=== PATIENT | male | born 1950 | race Caucasian/White ===

== ENCOUNTER 2017-09-13 09:57 | Inpatient (IN) | payer OTHER ==
[2017-09-13] VITALS (23 sets, daily range): BP systolic 84–113; BP diastolic 50–79
[~2017-09-13] VITALS: Ht 175.3 cm; Wt 78.2 kg
[2017-09-13] MEDS ORDERED: RT-ALBUTEROL/IPRATROPIUM 3 ML (DUONEB) VIAL ONE ×2 (10:05→11:38)
[2017-09-13 10:19] LABS: BASOPHILS % (AUTO) 0 % (0-10); EOSINOPHILS % (AUTO) 0 % (0-10); LYMPHOCYTES # (AUTO) 1.3 X 10^3 (1.0-4.0); LYMPHOCYTES % (AUTO) 16 % (12-44); MEAN CORPUSCULAR HEMOGLOBIN 35 PG (25-34); MEAN CORPUSCULAR HGB CONC 34 G/DL (32-36); MEAN CORPUSCULAR VOLUME 104 FL (80-99); MEAN PLATELET VOLUME 10.4 FL (7.4-10.4); MONOCYTES # (AUTO) 0.9 X 10^3 (0.0-1.0); MONOCYTES % (AUTO) 11 % (0-12); NEUTROPHILS # (AUTO) 5.8 X 10^3 (1.8-7.8); NEUTROPHILS % (AUTO) 72 % (42-75); PLATELET COUNT 203 10^3/uL (130-400); RED BLOOD COUNT 3.87 10^6/uL (4.35-5.85); RED CELL DISTRIBUTION WIDTH 12.2 % (10.0-14.5); WHITE BLOOD COUNT 8.1 10^3/uL (4.3-11.0)
[2017-09-13] MEDS ORDERED: morphine INJ 10 MG/ML 1ML (SYR OR VIAL) IVP STA (10:19)
[2017-09-13 10:24] LABS: INR 1.3 (0.8-1.4); PROTHROMBIN TIME PATIENT 16.2 SEC (12.2-14.7)
[2017-09-13 10:28] LABS: ABG BASE EXCESS 6.1 MMOL/L (-2.5-2.5); ABG HCO3 32 MMOL/L (23-27); ABG OXYGEN SATURATION 85 % (94-100); ABG PCO2 58 MMHG (35-45); ABG PH 7.35 (7.37-7.43); ABG PO2 53 MMHG (79-93); ABG TCO2 33.3 MMOL/L (21.0-31.0)
[2017-09-13 10:29] LABS: ALLENS TEST YES-POS; PATIENT TEMP 97.8
[2017-09-13 10:35] LABS: ALANINE AMINOTRANSFERASE 30 U/L (0-55); ALBUMIN 3.2 GM/DL (3.2-4.5); ANION GAP 10 MMOL/L (5-14); ASPARTATE AMINO TRANSFERASE 46 U/L (5-34); BILIRUBIN,TOTAL 2.4 MG/DL (0.1-1.0); BLOOD UREA NITROGEN 23 MG/DL (7-18); BUN/CREATININE RATIO 35; CALCIUM 8.8 MG/DL (8.5-10.1); CARBON DIOXIDE 31 MMOL/L (21-32); CHLORIDE 87 MMOL/L (98-107); CREATININE SERUM 0.65 MG/DL (0.60-1.30); GFR ESTIMATED > 60; GLUCOSE 98 MG/DL (70-105); POTASSIUM 5.1 MMOL/L (3.6-5.0); SODIUM 128 MMOL/L (135-145); TOTAL PROTEIN 7.3 GM/DL (6.4-8.2)
--- NOTE | 2017-09-13 10:36 | ED General ---
General Chief Complaint: Respiratory Problems Stated Complaint: SOA Nursing Triage Note: PT TO [facility] 9 BY [facility] WITH CC OF SOB AT REST WITH BI LAT LOWER EXT EDEMA AND SWELLING IN RT HAND. 90% ON 2 LPM ON EMS ARRIVAL, 98% ON ARRIVAL TO ER WITH 8 LPM BREATHING TX. Nursing Sepsis Screen: Possible Sepsis Risk Source of Information: Patient Exam Limitations: No Limitations History of Present Illness Time Seen by Provider: 10:08 Initial Comments Here by EMS with report of increasing shortness of breath over the last few days. Also has moderate increased swelling to both legs and the right arm. States he has no medical history that is on medicines for edema and breathing problems. He sees Ziyad Romo out at the clinic. He was hypoxic on EMS arrival and this did improve with breathing treatments. Very dyspneic on arrival and having difficult time answering questions. Denies fever or vomiting. Does admit to the swelling. Denies chest pain or diarrhea. Timing/Duration: 2-3 Days, Getting Worse Severity: Moderate, Severe Associated Systoms: No Chest Pain, Cough, No Diaphoresis, No Nausea/Vomiting, Shortness of Air, Weakness Allergies and Home Medications Allergies Coded Allergies: No Known Drug Allergies (Unverified , 09/13/17) Home Medications Unable to Obtain Active Prescriptions or Reported Meds Constitutional: see HPI, No chills, No diaphoresis, No fever, weakness EENTM: no symptoms reported Respiratory: see HPI, cough, dyspnea on exertion, short of breath, wheezing Cardiovascular: No chest pain, edema, No palpitations Gastrointestinal: No abdominal pain, No nausea, No vomiting Genitourinary: no symptoms reported Musculoskeletal: no symptoms reported Skin: no symptoms reported All Other Systems Reviewed Negative Unless Noted: Yes Past Nmoeves-Afbovk-Xopbll Hx Patient Social History Alcohol Use: Regular Use Number of Drinks Today: 1 Alcohol Beverage of Choice: Beer Recreational Drug Use: No Smoking Status: Former Smoker Former Smoker, Quit: Aug 23, 2017 Recent Foreign Travel: No Contact w/Someone Who Travel: No Recent Infectious Disease Expo: No Recent Hopitalizations: No Seasonal Allergies Seasonal Allergies: No Surgeries History of Surgeries: Yes Surgeries: Orthopedic Respiratory Respiratory Disorders: COPD Cardiovascular Cardiac Disorders: Hypertension Neurological History of Neurological Disord: No Genitourinary History of Genitourinary Disor: No Gastrointestinal History of Gastrointestinal Di: No Musculoskeletal History of Musculoskeletal Dis: No Endocrine History of Endocrine Disorders: No HEENT History of HEENT Disorders: No Cancer History of Cancer: No Psychosocial History of Psychiatric Problem: No Integumentary History of Skin or Integumenta: No Blood Transfusions History of Blood Disorders: No Reviewed Nursing Assessment Reviewed/Agree w Nursing PMH: Yes Family Medical History Significant Family History: No Pertinent Family Hx Physical Exam-Suspected Sepsis Physical Exam Vital Signs Vital Sign - Last 12Hours 09/13/17 09/13/17 09:57 11:44 Pulse Ox 98 O2 Flow Rate 8.00 FiO2 35 Capillary Refill : Less Than 3 Seconds Blood Pressure Mean: 114 General Appearance: Cachetic, Moderate Distress (respiratory), Thin HEENT: PERRL/EOMI, Pharynx Normal Neck: Non Tender, Supple Respiratory: Crackles, Decreased Breath Sounds, Wheezing Cardiovascular: No Murmur, Irregularly Irregular, Tachycardia Gastrointestinal: Non Tender, Soft Back: Normal Inspection, No CVA Tenderness, No Vertebral Tenderness Extremity: Normal Range of Motion, Non Tender Neurologic/Psychiatric: Alert, Oriented x3 Skin: normal color, warm/dry Focused Exam Evaluation Lactate Level Laboratory Tests 09/13/17 10:11: Lactic Acid Level 2.72*H 09/13/17 11:56: Lactic Acid Level 1.96 Lactic Acid Level Laboratory Tests Test 09/13/17 10:11 09/13/17 11:56 Lactic Acid Level 2.72 MMOL/L (0.50-2.00) *H 1.96 MMOL/L (0.50-2.00) Date of ETT Placement: Sep 13, 2017 Time of ETT Placement: 12:20 Intubation Method: orotracheal Tube Size: 7.5 Medications: Etomidate, Fentanyl, Succinylcholine, Versed Positive End Tide CO2: Yes Breath Sounds after Intubation: bilateral-equal Intubation Complications: no complications Post Intubation Xray: Yes Progress/Results/Core Measures Suspected Sepsis Recent Fever Within 48 Hours: No Infection Criteria Present: Suspected New Infection New/Unexplained Altered Menta: No Sepsis Screen: Possible Sepsis Risk Sepsis Diagnosis: SIRS Temperature:97.8 Pulse: 146 Respiratory Rate: 22 Laboratory Tests 09/13/17 10:05: White Blood Count 8.1 Blood Pressure 124 /109 Mean: 114 Laboratory Tests 09/13/17 10:11: Lactic Acid Level 2.72*H 09/13/17 11:56: Lactic Acid Level 1.96 Laboratory Tests 09/13/17 10:05: Creatinine 0.65, INR Comment 1.3, Platelet Count 203, Total Bilirubin 2.4H Results/Orders Lab Results Laboratory Tests Test 09/13/17 10:05 09/13/17 10:11 09/13/17 10:18 09/13/17 11:56 Range/Units White Blood Count 8.1 4.3-11.0 10^3/uL Red Blood Count 3.87 L 4.35-5.85 10^6/uL Hemoglobin 13.7 13.3-17.7 G/DL Hematocrit 40 40-54 % Mean Corpuscular Volume 104 H 80-99 FL Mean Corpuscular Hemoglobin 35 H 25-34 PG Mean Corpuscular Hemoglobin Concent 34 32-36 G/DL Red Cell Distribution Width 12.2 10.0-14.5 % Platelet Count 203 130-400 10^3/uL Mean Platelet Volume 10.4 7.4-10.4 FL Neutrophils (%) (Auto) 72 42-75 % Lymphocytes (%) (Auto) 16 12-44 % Monocytes (%) (Auto) 11 0-12 % Eosinophils (%) (Auto) 0 0-10 % Basophils (%) (Auto) 0 0-10 % Neutrophils # (Auto) 5.8 1.8-7.8 X 10^3 Lymphocytes # (Auto) 1.3 1.0-4.0 X 10^3 Monocytes # (Auto) 0.9 0.0-1.0 X 10^3 Eosinophils # (Auto) 0.0 0.0-0.3 10^3/uL Basophils # (Auto) 0.0 0.0-0.1 10^3/uL Prothrombin Time 16.2 H 12.2-14.7 SEC INR Comment 1.3 0.8-1.4 Activated Partial Thromboplast Time 29 24-35 SEC Sodium Level 128 L 135-145 MMOL/L Potassium Level 5.1 H 3.6-5.0 MMOL/L Chloride Level 87 L 98-107 MMOL/L Carbon Dioxide Level 31 21-32 MMOL/L Anion Gap 10 5-14 MMOL/L Blood Urea Nitrogen 23 H 7-18 MG/DL Creatinine 0.65 0.60-1.30 MG/DL Estimat Glomerular Filtration Rate > 60 BUN/Creatinine Ratio 35 Glucose Level 98 70-105 MG/DL Calcium Level 8.8 8.5-10.1 MG/DL Total Bilirubin 2.4 H 0.1-1.0 MG/DL Aspartate Amino Transf (AST/SGOT) 46 H 5-34 U/L Alanine Aminotransferase (ALT/SGPT) 30 0-55 U/L Alkaline Phosphatase 92 40-136 U/L B-Type Natriuretic Peptide 2248.7 H <100.0 PG/ML Total Protein 7.3 6.4-8.2 GM/DL Albumin 3.2 3.2-4.5 GM/DL Lactic Acid Level 2.72 *H 1.96 0.50-2.00 MMOL/L Blood Gas Puncture Site LT RAD Blood Gas Patient Temperature 97.8 Arterial Blood pH 7.35 L 7.37-7.43 Arterial Blood Partial Pressure CO2 58 H 35-45 MMHG Arterial Blood Partial Pressure O2 53 L 79-93 MMHG Arterial Blood HCO3 32 H 23-27 MMOL/L Arterial Blood Total CO2 33.3 H 21.0-31.0 MMOL/L Arterial Blood Oxygen Saturation 85 L 94-100 % Arterial Blood Base Excess 6.1 H -2.5-2.5 MMOL/L Deric Test YES-POS Blood Gas Ventilator Setting NO Blood Gas Inspired Oxygen 2L My Orders Orders - CATALINO BERMUDEZ MD Albuterol/Ipra Inhalation Soln (Duoneb I (09/13/17 10:05) Arterial Blood Gas (09/13/17 10:12) BNP (09/13/17 10:12) Cbc With Automated Diff (09/13/17 10:12) Comprehensive Metabolic Panel (09/13/17 10:12) Lactic Acid Analyzer (09/13/17 10:12) Blood Culture (09/13/17 10:12) Sputum Culture (09/13/17 10:12) Ua Culture If Indicated (09/13/17 10:12) Protime With Inr (09/13/17 10:12) Partial Thromboplastin Time (09/13/17 10:12) Chest 1 View, Ap/Pa Only (09/13/17 10:12) O2 (09/13/17 10:12) Saline Lock/Iv-Start (09/13/17 10:12) Ekg Tracing (09/13/17 10:12) Vital Signs Adult Sepsis Patie Q1H (09/13/17 10:12) Remove Rings In Anticipation O (09/13/17 10:12) Morphine Injection (Morphine Injection (09/13/17 10:19) Ns (Ivpb) (Sodium C... W/Diltiazem Iv Fo (09/13/17 10:45) Diltiazem Injection (Cardizem Injection) (09/13/17 10:45) Diltiazem Injection (Cardizem Injection) (09/13/17 10:46) Ns (Ivpb) (Sodium Chloride 0.9% Ivpb Bag (09/13/17 10:46) Diltiazem Iv For Drip (Cardizem Iv For D (09/13/17 10:47) Ns Iv 500 Ml (Sodium Chloride 0.9%) (09/13/17 11:02) Ns Iv 500 Ml (Sodium Chloride 0.9%) (09/13/17 11:03) Piperacillin Sodium/Tazobactam (Zosyn Vi (09/13/17 11:15) Saline Lock/Iv-Start (09/13/17 11:05) Ns (Ivpb) (Sodium Chloride 0.9% Ivpb Bag (09/13/17 11:26) Piperacillin Sodium/Tazobactam (Zosyn Vi (09/13/17 11:45) Albuterol/Ipra Inhalation Soln (Duoneb I (09/13/17 11:38) Albuterol/Ipra Inhalation Soln (Duoneb I (09/13/17 11:45) Svn Sm Volume Nebulizer Rt-Rfs (09/13/17 11:40) Catheter(Urinary) Insert & Ass 03,15 (09/13/17 12:07) Ng Tube Insert & Assessment (09/13/17 12:07) Chest 1 View, Ap/Pa Only (09/13/17 12:08) Enoxaparin Injection (Lovenox Injection) (09/13/17 12:30) Propofol Drip (Icu) (Diprivan Drip (Icu) (09/13/17 12:34) Medications Given in ED Current Medications Medications Dose Ordered Sig/Usha Route Start Time Stop Time Status Last Admin Dose Admin Diltiazem HCl 20 mg ONCE ONCE IVP 09/13/17 10:45 09/13/17 10:46 DC 09/13/17 10:57 20 MG Enoxaparin Sodium 60 mg ONCE ONCE SC 09/13/17 12:30 09/13/17 12:31 DC 09/13/17 12:36 60 MG Piperacillin Sod/ Tazobactam Sod 4.5 gm/Sodium Chloride 100 ml @ 200 mls/hr ONCE ONCE IV 09/13/17 11:45 09/13/17 12:14 DC 09/13/17 11:41 200 MLS/HR Sodium Chloride 500 ml @ 0 mls/hr Q0M ONCE IV 09/13/17 11:03 09/13/17 11:06 DC 09/13/17 11:10 999 MLS/HR Vital Signs/I&O Vital Sign - Last 12Hours 09/13/17 09/13/17 09/13/17 09/13/17 09:57 10:02 10:02 10:10 Temp 97.8 Pulse 146 Resp 22 B/P (MAP) 124/109 (114) Pulse Ox 98 95 95 O2 Delivery OxyMask Nasal Cannula Nasal Cannula O2 Flow Rate 8.00 4.00 2.00 09/13/17 09/13/17 09/13/17 09/13/17 10:10 10:35 11:00 11:09 Temp 97.8 97.8 Pulse 143 91 89 Resp 22 22 20 B/P (MAP) 114/80 88/55 88/55 Pulse Ox 95 93 94 O2 Delivery Nasal Cannula O2 Flow Rate 2.00 09/13/17 09/13/17 09/13/17 09/13/17 11:15 11:30 11:44 12:00 Pulse 94 75 Resp 22 20 B/P (MAP) 106/72 96/63 90/57 Pulse Ox 91 90 O2 Delivery Vapotherm Room Air FiO2 35 Capillary Refill : Less Than 3 Seconds Blood Pressure Mean: 114 Progress Note : Progress Note Seen and evaluated on arrival by EMS. Patient is in extremis with respect to respiratory rate and status. Has moderate swelling of both legs. Concerns for heart failure but also patient is tachycardic and concerns for pneumonia as well. Patient has difficulty with communication due to the respiratory distress. States he has no other medical problems but has medications for heart failure and breathing problems. Labs, EKG, chest x-ray, blood cultures and lactic acid ordered. 1045: Patient noted to be in atrial fibrillation with rapid ventricular response. This may be adding to his heart failure problems. Patient has been placed on Vapotherm and this has helped his oxygen saturation. Cardizem bolus 20 mg IV ordered and we will continue Cardizem drip at 10 mg an hour. 1125: The heart rate has improved to the upper 80s and appears to be still atrial fibrillation on the monitor. Blood pressure 106/72. Lactic acid is elevated and there is evidence of pneumonia. Due to patient's complicated history and lack of information, we will initiate treatment with Zosyn. Zosyn 4.5 g IV has been ordered for the pneumonia. Patient has elements of heart failure with elevated BNP and findings of heart failure on the chest x-ray as well as moderate leg swelling in the setting of atrial fibrillation with rapid ventricular response and pneumonia. He is borderline with respect to septic shock. High-volume fluid resuscitation would be dangerous in this setting and we are gently hydrating him while controlling for heart rate and we'll monitor for improvement. Patient will be admitted to the ICU with critical care on consult. 1149: Blood pressure 96/62 with O2 sat 93 percent with breathing treatment in progress. Heart rate 89 currently. I did discuss with the patient the possibility of intubation due to his declining blood pressure and declining respiratory status. Patient states that he is okay with that if it is needed. Dr. Cruz has seen the patient in the ER and she agrees and the patient is likely necessary due to patient's heart failure in the setting of pneumonia and sepsis. This will allow for greater fluid volume administration as needed. 12-3: Patient has been at intubated. Intubated by Navdeep Copeland APRN under my direct supervision. Tolerated procedure well. Post intubation sedation with Versed and fentanyl initially and this will be changed propofol. I did discuss the case with Dr. Gleason and he agrees to see patient in consult. 1225: I did discuss case with Dr. Aguirre and he agrees to see the patient in consult as well. Lovenox 1 mg/kg subcutaneous. NG tube and Ye catheter ordered. Postintubation x-ray shows tube in good position. 1250: Heart rate is improved in the 70s and 80s after intubation with O2 sat 93 percent on vent with rate of 16 and tidal volume of 450 and FiO2 of 30 percent with PEEP of 5. Patient has findings and concerns for severe sepsis including elevated lactic acid. White count is not elevated. Does have bilateral pneumonia. Blood pressure has maintained greater than 90 systolic and greater than 65 MAP up to this point. We will still hold on high-volume fluid resuscitation at this time but will consider this if blood pressure changes. Currently blood pressure 123/ 76. Admit, inpatient status. Patient and family agree with plan. ECG Initial ECG Impression Date: Sep 13, 2017 Initial ECG Impression Time: 10:35 Initial ECG Rate: 136 Initial ECG Rhythm: A Fib/Flutter Comment Atrial fibrillation with rapid ventricular rate. No evidence of ST elevation TX. No previous available for comparison. Interpreted by me. Diagnostic Imaging Diagonstic Imaging: Xray Plain Films/CT/US/NM/MRI: chest Comments NAME: SIOMARA MCKOY [facility] REC#: [id number] PT STATUS: REG ER : 1950 PHYSICIAN: CATALINO BERMUDEZ MD ADMIT DATE: 09/13/17/ER Signed Date of Exam: 09/13/17 CHEST 1 VIEW, AP/PA ONLY INDICATION: Shortness of breath. Frontal chest obtained at 10:48 a.m. COMPARISON: There are no prior studies for comparison. FINDINGS: The heart is mildly enlarged. There is central vascular congestion. There is bibasilar infiltrate with a small amount of pleural fluid on both sides. IMPRESSION: Bibasilar infiltrates and central vascular congestion with small bilateral pleural effusions. Followup is recommended. Dictated by: Dictated on workstation # [id number] Dict: 09/13/17 1052 Trans: 09/13/17 1105 Interpreted by: AMADO GERMAIN MD Electronically signed by: AMADO GERMAIN MD 09/13/17 1105 Reviewed: Reviewed by Me Departure Communication (Admissions) Time/Spoke to Admitting Phy: 11:00 Time/Spoke to Consulting Phy: 12:23 Impression Impression: Primary Impression: Acute respiratory failure with hypoxia Additional Impressions: Acute heart failure Qualified Codes: I50.21 - Acute systolic (congestive) heart failure Atrial fibrillation with RVR Bilateral pneumonia Qualified Codes: J18.9 - Pneumonia, unspecified organism Sepsis Qualified Codes: A41.9 - Sepsis, unspecified organism Disposition: 09 ADMITTED INPATIENT Condition: Critical Admissions Decision to Admit Reason: Admit from ER (General) Decision to Admit/Date: Sep 13, 2017 Time/Decision to Admit Time: 12:52 Departure-Patient Inst. Referrals: [facility] [place] (PCP) Primary Care Physician SHELLI NINO (Family) Primary Care Physician Scripts Unable to Obtain Active Prescriptions or Reported Meds CATALINO BERMUDEZ MD Sep 13, 2017 10:36
[2017-09-13] MEDS ORDERED: DILTIAZEM 25 MG/5 ML INJ (CARDIZEM) VIAL IVP ONE (10:45)
[2017-09-13] MEDS ORDERED: DILTIAZEM 25 MG/5 ML INJ (CARDIZEM) VIAL ONE (10:46)
[2017-09-13] MEDS ORDERED: NS (IVPB) 0 ML ONE (10:46)
[2017-09-13] MEDS ORDERED: DILTIAZEM 125 MG/25 ML IV (CARDIZEM) IV ONE (10:47)
--- NOTE | 2017-09-13 10:57 | Diagnostic Imaging Report ---
INDICATION: Shortness of breath. Frontal chest obtained at 10:48 a.m. COMPARISON: There are no prior studies for comparison. FINDINGS: The heart is mildly enlarged. There is central vascular congestion. There is bibasilar infiltrate with a small amount of pleural fluid on both sides. IMPRESSION: Bibasilar infiltrates and central vascular congestion with small bilateral pleural effusions. Followup is recommended. Dictated by: Dictated on workstation # [id number]
[2017-09-13] MEDS ORDERED: NS IV 500 ML 500 ML ONE (11:02)
[2017-09-13] MEDS ORDERED: NS IV 500 ML 500 ML IV ONE (11:03)
[2017-09-13] MEDS: DILTIAZEM IV FOR DRIP 125 MG in NS (IVPB) 100 ML IV SCH ×2 (11:09→11:15)
[2017-09-13] MEDS ORDERED: PIPERACILLIN/TAZO 4.5 GM VIAL (ZOSYN) IV ONE (11:15)
[2017-09-13] MEDS ORDERED: NS (IVPB) 100 ML ONE (11:26)
[2017-09-13] MEDS ORDERED: PIPERACILLIN SODIUM/TAZOBACTAM 4.5 GM in NS (IVPB) 100 ML IV ONE (11:45)
[2017-09-13] MEDS ORDERED: RT-ALBUTEROL/IPRATROPIUM 3 ML (DUONEB) VIAL INH ONE (11:45)
[2017-09-13] MEDS ORDERED: SUCCINYLCHOLINE INJ 100 MG/5 ML SYR INJ ONE (12:15)
[2017-09-13] MEDS ORDERED: ETOMIDATE IV SOLN 20 MG/10 ML VIAL IV ONE (12:15)
[2017-09-13] MEDS ORDERED: MIDAZOLAM 5 MG/5 ML (VERSED) VIAL INJ ONE (12:15)
[2017-09-13] MEDS ORDERED: fentaNYL INJECTION 100 MCG/2 ML AMP INJ ONE (12:15)
[2017-09-13] MEDS ORDERED: ENOXAPARIN 60 MG/0.6 ML (LOVENOX) SYR SC ONE (12:30)
[2017-09-13] MEDS ORDERED: PROPOFOL DRIP (ICU) 100 ML IV ONE (12:34)
[2017-09-13] MEDS ORDERED: PROPOFOL INJECTION 50 ML IV SCH (12:45)
[2017-09-13 13:11] LABS: BILIRUBIN,URINE NEGATIVE (NEGATIVE); KETONES,URINE NEGATIVE (NEGATIVE); LEUKOCYTE ESTERASE ,URINE 1+ (NEGATIVE); NITRITE,URINE NEGATIVE (NEGATIVE); PH,URINE 6 (5-9); PROTEIN,URINE 2+ (NEGATIVE); UROBILINOGEN,URINE 4 MG/DL (NORMAL)
--- NOTE | 2017-09-13 13:11 | Diagnostic Imaging Report ---
INDICATION: Post intubation EXAMINATION: PA chest obtained at 1238 hrs pm, and compared to same day at 1048 hrs am. There is a new ET tube in place tip overlying the mid to lower trachea. There is an NG tube seen with tip in the proximal portion of the stomach. There is worsening perihilar central venous congestion and infiltrate with worsening bibasilar infiltrate. There is no pneumothorax. There is a minimal pleural fluid on both sides. IMPRESSION: Worsening perihilar central vascular congestion and infiltrate. New ET tube in good position with tip overlying lower trachea. NG tube tip overlies proximal portion of the stomach. Dictated by: Dictated on workstation # [id number]
[2017-09-13 13:21] LABS: HYALINE CASTS, URINE 0-2 /LPF; SQUAMOUS EPITHELIAL CELL,UR RARE /HPF
[2017-09-13] MEDS ORDERED: DILTIAZEM IV FOR DRIP 125 MG in NS (IVPB) 100 ML IV SCH (14:00)
[2017-09-13] MEDS ORDERED: ENOXAPARIN 100 MG/1 ML (LOVENOX) SYR SC SCH (14:30)
--- NOTE | 2017-09-13 14:33 | Consultation-Cardiology ---
HPI-Cardiology Cardiology Consultation: Date of Consultation 09/13/17 Time Seen by Provider: 14:15 Date of Admission 09-13-17 Attending Physician Yulisa Cruz DO Admitting Physician [facility] Consulting Physician Damian Mitchell MD HPI: Chief Complaint: Dyspnea Elevated BNP Mr. Kohler is a 67 year old male who has been admitted to ICU 7 from the ED. He is currently intubated and sedated. Information has been obtained from chart and discussion with family. His spouse is at the bedside. Family reports increasing shortness of breath over the last few days. He has chronic dyspnea for which he wears oxygen at home. He has chronic productive cough, which has been somewhat worse recently. Increasing bilat LE edema over the last few weeks. No reported c/o CP or palpitations. No reported episodes of syncope or near syncope. No reports of n/v/d. No report of fever or chills. He follows with Ziyad Fonseca APRN at [facility]. Family reports he drinks approx a 6 pack of beer a day, but recently d/t not feeling well for the last week he has only been drinking approx 4 beers a night. He previously smoked 1 PPD of cigs, but spouse reports he quit a month ago. Spouse reports he is not very active and mostly spends his days sitting in a chair watching television. Review of Systems-Cardiology Review of Systems Other comments Intubated and sedated All Other Systems Reviewed Negative Unless Noted: Yes ALG-Rhmgrm-Emmtbr Hx Patient Social History Alcohol Use: Regular Use Recreational Drug Use: No Smoking Status: Former Smoker Recent Foreign Travel: No Recent Infectious Disease Expo: No Past Medical History PMH As described under Assessment. Family Medical History Family Medical History: No reported h/o premature CAD or SCD per family at the bedside Allergies and Home Medications Allergies Coded Allergies: No Known Drug Allergies (Unverified , 09/13/17) Home Medications Albuterol Sulfate 2.5 Mg/3 Ml Vial.neb, 2.5 MG NEB Q6H PRN for SHORTNESS OF BREATH, (Reported) Albuterol Sulfate 1 Puff Puff, 2 PUFF IH Q6H PRN for SHORTNESS OF BREATH, ( Reported) 1 PUFF = 90 MCG Albuterol/Ipratropium 4 Gm Aero, 1 PUFF IH QID, (Reported) Atenolol 50 Mg Tablet, 25 MG PO DAILY, (Reported) TAKES 1/2 (50MG) TABLET Furosemide 20 Mg Tablet, 20 MG PO DAILY, (Reported) Tiotropium [place] 1 Inh Aerp, 1 CAP INH DAILY, (Reported) Physical Exam-Cardiology Physical Exam Vital Signs/I&O Vital Sign - Last 12Hours 09/13/17 09/13/17 09/13/17 09/13/17 09:57 10:02 10:02 10:10 Temp 97.8 Pulse 146 Resp 22 B/P (MAP) 124/109 (114) Pulse Ox 98 95 95 O2 Delivery OxyMask Nasal Cannula Nasal Cannula O2 Flow Rate 8.00 4.00 2.00 09/13/17 09/13/17 09/13/17 09/13/17 10:10 10:35 11:00 11:09 Temp 97.8 97.8 Pulse 143 91 89 Resp 22 22 20 B/P (MAP) 114/80 88/55 88/55 Pulse Ox 95 93 94 O2 Delivery Nasal Cannula O2 Flow Rate 2.00 09/13/17 09/13/17 09/13/17 09/13/17 11:15 11:30 11:44 12:00 Pulse 94 75 Resp 22 20 B/P (MAP) 106/72 96/63 90/57 Pulse Ox 91 90 O2 Delivery Vapotherm Room Air FiO2 35 09/13/17 09/13/17 09/13/17 09/13/17 12:30 12:38 12:42 13:00 Pulse 76 79 68 Resp 20 16 16 22 B/P (MAP) 110/71 110/71 84/56 Pulse Ox 98 100 98 94 O2 Delivery Mechanical Ventilator Mechanical Ventilator FiO2 30 09/13/17 09/13/17 09/13/17 09/13/17 13:20 13:20 13:33 13:45 Pulse 81 65 73 75 Resp 16 20 16 25 B/P (MAP) 85/50 (62) Pulse Ox 98 98 100 83 O2 Delivery Mechanical Ventilator Mechanical Ventilator O2 Flow Rate 60.00 FiO2 60 09/13/17 09/13/17 09/13/17 09/13/17 13:47 14:00 14:26 15:00 Pulse 63 61 64 64 Resp 13 16 16 B/P (MAP) 99/70 (80) 104/71 (82) Pulse Ox 100 100 100 O2 Delivery Mechanical Ventilator Mechanical Ventilator O2 Flow Rate 60.00 50.00 FiO2 50 09/13/17 09/13/17 09/13/17 16:00 17:00 18:00 Pulse 57 64 66 Resp 15 15 15 B/P (MAP) 86/61 (69) 102/57 (72) 103/61 (75) Pulse Ox 87 100 100 O2 Delivery Mechanical Ventilator Mechanical Ventilator Mechanical Ventilator O2 Flow Rate 50.00 50.00 50.00 Capillary Refill : Less Than 3 Seconds Constitutional: other (thin, frail; intubated and sedated) HEENT: No oral hygience is good, No ulceration Neck: carotid bruit Respiratory: other (intubated; diminished lower lobes bilat with exp wheezes) Cardiovascular: irregularly irregular, JVD, S1 and S2, systolic murmur Gastrointestinal: soft, audible bowel sounds, other (thin) Rectal: deferred Genital/Rectal: other (urniary catheter in place with yosi urine) Extremities: significant edema (bilat 3 (+) pitting edema LE; RUE edema) Neurologic/Psychiatric: other (intubated) Skin: normal color, warm/dry, ulcerations (ulcerations to coccyx, feet and elbows) Data Review Labs Laboratory Tests 09/13/17 10:05: White Blood Count 8.1, Red Blood Count 3.87L, Hemoglobin 13.7, Hematocrit 40, Mean Corpuscular Volume 104H, Mean Corpuscular Hemoglobin 35H, Mean Corpuscular Hemoglobin Concent 34, Red Cell Distribution Width 12.2, Platelet Count 203, Mean Platelet Volume 10.4, Neutrophils (%) (Auto) 72, Lymphocytes (%) (Auto) 16 , Monocytes (%) (Auto) 11, Eosinophils (%) (Auto) 0, Basophils (%) (Auto) 0, Neutrophils # (Auto) 5.8, Lymphocytes # (Auto) 1.3, Monocytes # (Auto) 0.9, Eosinophils # (Auto) 0.0, Basophils # (Auto) 0.0, Prothrombin Time 16.2H, INR Comment 1.3, Activated Partial Thromboplast Time 29, Sodium Level 128L, Potassium Level 5.1H, Chloride Level 87L, Carbon Dioxide Level 31, Anion Gap 10 , Blood Urea Nitrogen 23H, Creatinine 0.65, Estimat Glomerular Filtration Rate > 60, BUN/Creatinine Ratio 35, Glucose Level 98, Calcium Level 8.8, Total Bilirubin 2.4H, Aspartate Amino Transf (AST/SGOT) 46H, Alanine Aminotransferase (ALT/SGPT) 30, Alkaline Phosphatase 92, B-Type Natriuretic Peptide 2248.7H, Total Protein 7.3, Albumin 3.2 09/13/17 10:11: Lactic Acid Level 2.72*H 09/13/17 10:18: Blood Gas Puncture Site LT RAD, Blood Gas Patient Temperature 97.8, Arterial Blood pH 7.35L, Arterial Blood Partial Pressure CO2 58H, Arterial Blood Partial Pressure O2 53L, Arterial Blood HCO3 32H, Arterial Blood Total CO2 33.3H, Arterial Blood Oxygen Saturation 85L, Arterial Blood Base Excess 6.1H, Deric Test YES-POS, Blood Gas Ventilator Setting NO, Blood Gas Inspired Oxygen 2L 09/13/17 11:56: Lactic Acid Level 1.96 09/13/17 13:04: Urine Color YELLOW, Urine Clarity CLEAR, Urine pH 6, Urine Specific [place] 1.015L, Urine Protein 2+H, Urine Glucose (UA) NEGATIVE, Urine Ketones NEGATIVE, Urine Nitrite NEGATIVE, Urine Bilirubin NEGATIVE, Urine Urobilinogen 4H, Urine Leukocyte Esterase 1+H, Urine RBC (Auto) NEGATIVE, Urine RBC RARE, Urine WBC NONE, Urine Squamous Epithelial Cells RARE, Urine Crystals NONE, Urine Bacteria TRACE, Urine Casts PRESENT, Urine Hyaline Casts 0-2H, Urine Mucus NEGATIVE, Urine Culture Indicated NO 09/13/17 14:43: Sodium Level 127L, Potassium Level 4.7, Chloride Level 91L, Carbon Dioxide Level 26, Anion Gap 10, Blood Urea Nitrogen 23H, Creatinine 0.58L, Estimat Glomerular Filtration Rate > 60, BUN/Creatinine Ratio 40, Glucose Level 91, Calcium Level 8.4L 09/13/17 18:28: Blood Gas Puncture Site RIGHT RADIAL, Blood Gas Patient Temperature 96.4, Arterial Blood pH 7.48H, Arterial Blood Partial Pressure CO2 41, Arterial Blood Partial Pressure O2 123H, Arterial Blood HCO3 31H, Arterial Blood Total CO2 32.2H, Arterial Blood Oxygen Saturation 100, Arterial Blood Base Excess 6.9H, Deric Test POSITIVE, Blood Gas Ventilator Setting YES, Blood Gas Inspired Oxygen 50% Radiology NAME: EANSIOMARA Ricci Cammie [facility] REC#: [id number] PT STATUS: ADM IN : 1950 PHYSICIAN: CATALINO BERMUDEZ MD ADMIT DATE: 09/13/17/ICU Signed Date of Exam: 09/13/17 CHEST 1 VIEW, AP/PA ONLY INDICATION: Post intubation EXAMINATION: PA chest obtained at 1238 hrs pm, and compared to same day at 1048 hrs am. There is a new ET tube in place tip overlying the mid to lower trachea. There is an NG tube seen with tip in the proximal portion of the stomach. There is worsening perihilar central venous congestion and infiltrate with worsening bibasilar infiltrate. There is no pneumothorax. There is a minimal pleural fluid on both sides. IMPRESSION: Worsening perihilar central vascular congestion and infiltrate. New ET tube in good position with tip overlying lower trachea. NG tube tip overlies proximal portion of the stomach. Dictated by: Dictated on workstation # [id number] Dict: 09/13/17 1307 Trans: 09/13/17 1341 Interpreted by: AMADO GERMAIN MD Electronically signed by: AMADO GERMAIN MD 09/13/17 1341 A/P-Cardiology Assessment/Admission Diagnosis Acute respiratory failure (multifactorial) requiring intubation and mechanical ventilation Pneumonia with sepsis Acute exacerbation of COPD Pulm hypertension, likely related to COPD Acute on chronic diastolic CHF Echo on 09/13/17: LVEF 50-55%, PASP 50 mmHg A-fib with RVR - duration unknown - currently rate controlled H/O HTN - currently hypotensive likely d/t sepsis ETOH abuse Tobaccoism - stopped approx a month ago H/O opiate abuse in the past H/O bilat leg fractures in the for which he has had at least 2 surgeries in the past at the [facility] Electrolyte abnormalities Carotid bruit - carotid u/s Elevated bilirubin and AST level likely in some part d/t chronic ETOH abuse Discussion and Recomendations Complex management issue with multiple comorbidities Pneumonia with sepsis and respiratory failure leading to intubation which is being managed by medical and surgical services Acute exacerbation of COPD which is being managed by medical services A-fib with RVR which rate is controlled on Cardizem gtt. Onset of a-fib is unknown, however spouse reports that approx a month ago his primary care provider did discuss starting him on Coumadin. She is unaware of why Coumadin was advised. We advise anticoagulation for stroke prophylaxis. We will start Lovenox 1mg/kg subcut BID. H/O ETOH abuse. Monitor for DT's with management per medical services Hyperkalemia and hyponatremia for which we will repeat the lab Acute on chronic CHF for which we advise echocardiogram to evaluate structure and LVEF. Treat with diuretics as needed. Monitor lab closely Carotid bruit for which we advise carotid u/s Advise further coronary work up when clinical condition improves Seriously ill We would like to thank the medical services for this consult Further recommendations will be based on his hospital course. We will request records from his last office visit at [facility] including EKG. This consult is being scribed by Titus Cameron APRN on behalf of Dr. Mitchell after discussion regarding plan of care Physician Assessment Physician Assessment Intubated and on mech vent and unresponsive Cor: irreg Lungs: diminished air entry at the bases, prolonged exp Ext: no c/c/e Echo today: see above A&R * As documented in our note above that I updated (italics) and as noted below * Complex management due to multiple comorbidities * Control heart rate with dilt/dig, as needed and as tolerated * Stroke prophylaxis with enoxaparin * Monitor labs * Prognosis guarded * I spoke with his fam and answered CV-related questions EDENILSON CAMERON Sep 13, 2017 14:33 DAMIAN MITCHELL MD [facility] Sep 13, 2017 18:51
[2017-09-13] MEDS ORDERED: CATHETER FLUSH 10 ML SYR IV PRN (14:45)
[2017-09-13] MEDS ORDERED: TIOT18CA2 INH (14:59)
[2017-09-13] MEDS ORDERED: ALBU2.5V4 NEB (14:59)
[2017-09-13] MEDS ORDERED: ATEN50TA PO (14:59)
[2017-09-13] MEDS ORDERED: FURO20TA4 PO (14:59)
[2017-09-13] MEDS: DILTIAZEM DRIP 125 MG/NS 100 ML TOTAL VOLUME 125 ML IV SCH ×2 (15:00)
[2017-09-13] MEDS ORDERED: IPRA4AER IH (15:02)
[2017-09-13] MEDS ORDERED: RT-ALBUINH IH (15:02)
[2017-09-13 15:07] LABS: ANION GAP 10 MMOL/L (5-14); BLOOD UREA NITROGEN 23 MG/DL (7-18); BUN/CREATININE RATIO 40; CALCIUM 8.4 MG/DL (8.5-10.1); CARBON DIOXIDE 26 MMOL/L (21-32); CHLORIDE 91 MMOL/L (98-107); CREATININE SERUM 0.58 MG/DL (0.60-1.30); GFR ESTIMATED > 60; GLUCOSE 91 MG/DL (70-105); POTASSIUM 4.7 MMOL/L (3.6-5.0); SODIUM 127 MMOL/L (135-145)
--- NOTE | 2017-09-13 15:24 | History & Physical-Hospitalist ---
HPI History of Present Illness: HPI/Chief Complaint CC: Dyspnea HPI: This is a 67-year-old white male clinic patient of [facility] the claims he has no medical problems with takes Lasix at home and an inhaler that has a 30 drinks day history of alcohol use most recently cut down to 10 a day but the girlfriend states it's only 6 a day and continues to smoke who presented to the emergency room with shortness of breath found to have new onset congestive heart failure with elevated BNP and pulmonary congestion on chest x-ray atrial fibrillation with rapid ventricular response in addition to sepsis that required intubation the ER due to the severity of his respiratory status. I am unable to assess any details whatsoever from the patient considering his tachypnea and respiratory distress. Source: patient Exam Limitations: clinical condition Date Seen 09/13/17 Time Seen by Provider: 12:30 Attending Physician Yulisa Cruz DO [facility] Referring Physician Date of Admission Sep 13, 2017 at 12:30 Home Medications & Allergies Home Medications Reviewed patient Home Medication Reconciliation Form Allergies Allergies Coded Allergies No Known Drug Allergies (Jycqqyznbc03/20/17) Past Zhwxtbx-Afoqgv-Qpfnxf Hx Patient Social History Marrital Status: single Employed/Student: unemployed Alcohol Use: Regular Use Number of Drinks Today: 1 Alcohol Beverage of Choice: Beer Recreational Drug Use: No Smoking Status: Current Everyday Smoker Former Smoker, Quit: Aug 23, 2017 Recent Foreign Travel: No Contact w/other who traveled: No Recent Hopitalizations: No Recent Infectious Disease Expo: No Seasonal Allergies Seasonal Allergies: No Surgeries Yes Orthopedic Respiratory Yes COPD Cardiovascular Yes Hypertension Neurological No Genitourinary No Gastrointestinal No Musculoskeletal No Endocrine History of Endocrine Disorders: No HEENT History of HEENT Disorders: No Cancer No Psychosocial History of Psychiatric Problem: No Integumentary History of Skin or Integumenta: No Blood Transfusions History of Blood Disorders: No Reviewed Nursing Assessment Reviewed/Agree w Nursing PMH: Yes Family Medical History Significant Family History: No Pertinent Family Hx Review of Systems Constitutional: see HPI, weakness EENTM: no symptoms reported Respiratory: dyspnea on exertion, short of breath, wheezing Cardiovascular: no symptoms reported Gastrointestinal: no symptoms reported Genitourinary: no symptoms reported Musculoskeletal: no symptoms reported Skin: no symptoms reported Psychiatric/Neurological: No Symptoms Reported All Other Systems Reviewed Negative Unless Noted: Yes Physical Exam Physical Exam Vital Signs Vital Sign - Last 12Hours 12/20/17 12/20/17 09:57 11:44 Pulse Ox 98 O2 Flow Rate 8.00 FiO2 35 Capillary Refill : Less Than 3 Seconds General Appearance: WD/WN, Anxious, Chronically ill, Severe Distress, Thin Eyes: Bilateral Eye Normal Inspection, Bilateral Eye PERRL HEENT: PERRL/EOMI, Normal ENT Inspection, Pharynx Normal Neck: Full Range of Motion, Normal Inspection, Non Tender, Supple, Carotid Bruit Respiratory: Chest Non Tender, Accessory Muscle Use, Crackles, Decreased Breath Sounds, Rales, Respiratory Distress, Wheezing Cardiovascular: No Edema, No Gallop, No JVD, No Murmur, Normal Peripheral Pulses, Irregularly Irregular, Tachycardia Gastrointestinal: Normal Bowel Sounds, No Organomegaly, No Pulsatile Mass, Non Tender, Soft Back: Normal Inspection, No CVA Tenderness, No Vertebral Tenderness Extremity: Normal Capillary Refill, Normal Inspection, Normal Range of Motion, Non Tender, No Calf Tenderness, No Pedal Edema Neurologic/Psychiatric: Alert, Oriented x3, No Motor/Sensory Deficits, Depressed Affect Skin: Normal Color, Warm/Dry Lymphatic: No Adenopathy Results Results/Procedures Lab Laboratory Tests 09/13/17 10:05 09/13/17 14:43 09/14/17 04:00 Assessment/Plan Admission Diagnosis Acute respiratory failure due to new onset congestive heart failure with volume overload, bilateral pneumonia, new onset atrial fibrillation with rapid ventricular response along with sepsis Assessment and Plan Plan: IVF Cardizem IV drip Intubation Steroids Diagnosis/Problems Diagnosis/Problems (1) Acute respiratory failure with hypoxia Status: Acute Assessment & Plan: Intubation (2) Atrial fibrillation with RVR Status: Acute Assessment & Plan: IV Cardizem (3) Bilateral pneumonia Status: Acute Qualifiers: Qualified Codes: J18.9 - Pneumonia, unspecified organism (4) Sepsis Status: Acute Qualifiers: Qualified Codes: A41.9 - Sepsis, unspecified organism (5) Acute heart failure Status: Acute Qualifiers: Qualified Codes: I50.21 - Acute systolic (congestive) heart failure (6) Smoker Status: Chronic (7) Alcoholism Status: Chronic Assessment & Plan: Withdrawal management YULISA CRUZ DO Sep 13, 2017 15:24
[2017-09-13] MEDS ORDERED: NS IV 1000 ML 1,769.01 ML IV PRN (15:30)
[2017-09-13] MEDS ORDERED: PHENYLEPHRINE 10 MG/NS 250 ML IV SCH ×2 (16:00)
--- NOTE | 2017-09-13 16:15 | Diagnostic Imaging Report ---
PROCEDURE: US carotid duplex, bilateral. TECHNIQUE: Multiple real-time grayscale images were obtained over the carotid arteries in various projections, bilaterally. Additional duplex Doppler and color Doppler images were also obtained. INDICATION: Carotid bruit. The patient is unresponsive. FINDINGS: Atherosclerotic plaque is demonstrated on the grayscale images, bilaterally, more prominent on the right side. Color Doppler demonstrates patency of the common, internal and external carotid arteries, bilaterally, and antegrade flow in the vertebral arteries is seen on both sides. Peak systolic velocities in the right ICA are 74, 52 and 64 cm/s and on the left is 40, 90 and 76 cm/s. ICA/CCA ratios are up to 1.5 on the right and up to 2.0 on the left side. IMPRESSION: There is prominent atherosclerotic calcifications in the proximal internal carotid artery, particularly on the right side, with velocities suggestive of less than 50% stenosis, bilaterally. Dictated by: Dictated on workstation # [id number]
[2017-09-13] MEDS: NOREPINEPHRINE 4 MG in NS (IVPB) 250 ML IV SCH (16:30)
[2017-09-13] MEDS ORDERED: LORazepam INJ 2 MG/ML (ATIVAN) VIAL IVP PRN (17:15)
[2017-09-13] MEDS ORDERED: INFLUENZA TRIvalent 2017-2018 0.5 ML/45 MCG SYR IM ONE (17:15)
--- NOTE | 2017-09-13 17:23 | Operative Report ---
Operative Report Date of Procedure/Surgery Sep 13, 2017 Surgeon (s) TORIBIO LAYTON MD Technical Developer (s): N/A Post-Operative Diagnosis Pneumonia with respiratory failure. Poor venous access Procedure Performed Central venous catheter placement Description of Procedure Estimated blood loss (mL): None Specimen(s) collected/removed none Description of the Procedure Indication for the procedure: This gentleman is being managed for respiratory failure due to pneumonia and multiple other medical problems. Due to poor venous access and to facilitate vasopressor therapy, I was asked to place a central venous catheter. Description of procedure: He was placed in Trendelenburg position on the right side of his neck prepared and draped in the usual sterile manner. Internal jugular vein was localized using a 12 MHz ultrasound probe on the right side and a floppy guidewire introduced into the heart. Subcutaneous tract was gently dilated using a silastic sheath and a 16 cm long, 7-1/2 Romansh triple- lumen central venous catheter advanced using Seldinger technique. All the channels were aspirated and flushed with heparinized saline. The catheter was then secured using a silk suture and a dressing applied. He tolerated the procedure reasonably well. Findings of the Procedure See op report Allergies and Home Medications Allergies Coded Allergies: No Known Drug Allergies (Unverified , 09/13/17) Home Medications Albuterol Sulfate 2.5 Mg/3 Ml Vial.neb, 2.5 MG NEB Q6H PRN for SHORTNESS OF BREATH, (Reported) Albuterol Sulfate 1 Puff Puff, 2 PUFF IH Q6H PRN for SHORTNESS OF BREATH, ( Reported) 1 PUFF = 90 MCG Albuterol/Ipratropium 4 Gm Aero, 1 PUFF IH QID, (Reported) Atenolol 50 Mg Tablet, 25 MG PO DAILY, (Reported) TAKES 1/2 (50MG) TABLET Furosemide 20 Mg Tablet, 20 MG PO DAILY, (Reported) Tiotropium [place] 1 Inh Aerp, 1 CAP INH DAILY, (Reported) TORIBIO LAYTON MD Sep 13, 2017 5:23 pm
--- NOTE | 2017-09-13 17:35 | Pulmonary Consultation ---
History of Present Illness History of Present Illness Date of Consultation 09/13/17 17:27 Time Seen by Provider: 17:27 Date of Admission History of Present Illness 67yo with hx of CHF, COPD presented to ED secondary to worsening SOB over the last 3 days. Pt also complains of worsening bilateral LE edema. Pt was placed on noninvasive ventilation in ED however had to be intubated after failing noninvasive ventilation. Pt is now in the ICU resting on ventilator. Pt also has an extensive drinking hx. He drinks 30pk of beer a day however he has decrease to 30pk every other day. Allergies and Home Medications Allergies Coded Allergies: No Known Drug Allergies (Unverified , 09/13/17) Home Medications No Active Prescriptions or Reported Meds Past Bisjzws-Awsvvx-Bssevq Hx Patient Social History Alcohol Use: Regular Use Number of Drinks Today: 1 Alcohol Beverage of Choice: Beer Recreational Drug Use: No Smoking Status: Former Smoker Former Smoker, Quit: Aug 23, 2017 Recent Foreign Travel: No Contact w/Someone Who Travel: No Recent Infectious Disease Expo: No Recent Hopitalizations: No Seasonal Allergies Seasonal Allergies: No Surgeries History of Surgeries: Yes Surgeries: Orthopedic Respiratory Respiratory Disorders: COPD Cardiovascular Cardiac Disorders: Hypertension Neurological History of Neurological Disord: No Genitourinary History of Genitourinary Disor: No Gastrointestinal History of Gastrointestinal Di: No Musculoskeletal History of Musculoskeletal Dis: No Endocrine History of Endocrine Disorders: No HEENT History of HEENT Disorders: No Cancer History of Cancer: No Psychosocial History of Psychiatric Problem: No Integumentary History of Skin or Integumenta: No Blood Transfusions History of Blood Disorders: No Reviewed Nursing Assessment Reviewed/Agree w Nursing PMH: Yes Family Medical History Significant Family History: No Pertinent Family Hx Review of Systems Time Seen by Provider: 06:53 Exam Exam Vital Signs Date Time Temp Pulse Resp B/P (MAP) Pulse Ox O2 Delivery O2 Flow Rate FiO2 09/13/17 16:00 57 15 86/61 (69) 87 Mechanical Ventilator 50.00 09/13/17 15:00 64 16 104/71 (82) 100 Mechanical Ventilator 50.00 09/13/17 14:26 64 16 100 50 09/13/17 14:00 61 13 99/70 (80) 100 Mechanical Ventilator 60.00 09/13/17 13:47 63 09/13/17 13:45 75 25 85/50 (62) 83 Mechanical Ventilator 60.00 09/13/17 13:33 73 16 100 60 09/13/17 13:20 65 20 98 09/13/17 13:20 81 16 98 Mechanical Ventilator 09/13/17 13:00 68 22 84/56 94 Mechanical Ventilator 09/13/17 12:42 16 110/71 98 09/13/17 12:38 79 16 100 30 09/13/17 12:30 76 20 110/71 98 Mechanical Ventilator 09/13/17 12:00 75 20 90/57 90 Room Air 09/13/17 11:44 Vapotherm 35 09/13/17 11:30 94 22 96/63 91 09/13/17 11:15 106/72 09/13/17 11:09 89 20 88/55 94 09/13/17 11:00 97.8 91 22 88/55 93 09/13/17 10:35 97.8 143 22 114/80 95 09/13/17 10:10 Nasal Cannula 2.00 09/13/17 10:10 95 Nasal Cannula 2.00 09/13/17 10:02 95 Nasal Cannula 4.00 09/13/17 10:02 97.8 146 22 124/109 (114) OxyMask 09/13/17 09:57 98 8.00 General Appearance: Cachetic, Moderate Distress (respiratory), Thin HEENT: PERRL/EOMI, Pharynx Normal Neck: Non Tender, Supple Respiratory: Crackles, Decreased Breath Sounds, Wheezing Cardiovascular: No Murmur, Irregularly Irregular, Tachycardia Capillary Refill: Less Than 3 Seconds Extremity: Normal Range of Motion, Non Tender Neurologic/Psychiatric: Alert, Oriented x3 Results Lab Laboratory Tests 09/13/17 10:05 09/13/17 14:43 Assessment/Plan Assessment/Plan Acute respiratory failure requiring mechanical ventilation Pneumonia with sepsis -Continue Abx COPDAE -solumedrol Cardiomyopathy -Echo pending -cardiology consulted ETOH dependance -Alcohol withdrawal Tobacco dependance 255 Clinical Quality Measures DVT/VTE Risk/Contraindication: Risk Factor Score Per Nursin RFS Level Per Nursing on Admit: 4+=Very High TOPHER LEAL DO Sep 13, 2017 17:35
[2017-09-13] MEDS: NS IV 1000 ML 1,000 ML IV SCH ×2 (17:45→21:50)
[2017-09-13] MEDS: PIPERACILLIN/TAZOBACTAM 4.5 GM/NS 100 ML IVPB IV SCH ×2 (17:46)
[2017-09-13 18:37] LABS: ABG BASE EXCESS 6.9 MMOL/L (-2.5-2.5); ABG HCO3 31 MMOL/L (23-27); ABG OXYGEN SATURATION 100 % (94-100); ABG PCO2 41 MMHG (35-45); ABG PH 7.48 (7.37-7.43); ABG PO2 123 MMHG (79-93); ABG TCO2 32.2 MMOL/L (21.0-31.0); ALLENS TEST POSITIVE; PATIENT TEMP 96.4
[2017-09-13] MEDS: RT-ALBUTEROL/IPRATROPIUM 3 ML (DUONEB) VIAL INH SCH ×2 (18:53→22:13)
[2017-09-13] MEDS ORDERED: THIAMINE INJECTION 100 MG in NS (IVPB) 50 ML IV SCH (20:00)
[2017-09-13] MEDS: ENOXAPARIN 60 MG/0.6 ML (LOVENOX) SYR SC SCH (20:58)
[2017-09-13] MEDS: FAMOTIDINE 20MG/2ML IV (PEPCID) IV SCH (20:58)
[2017-09-13] MEDS: CATHETER FLUSH 10 ML SYR IV SCH (20:59)
[2017-09-14] VITALS (33 sets, daily range): BP systolic 84–146; BP diastolic 46–87
[2017-09-14] MEDS: NS IV 1000 ML 1,000 ML IV SCH ×4 (02:06→21:14)
[2017-09-14] MEDS: PIPERACILLIN/TAZOBACTAM 4.5 GM/NS 100 ML IVPB IV SCH ×6 (02:11→18:30)
[2017-09-14] MEDS: RT-ALBUTEROL/IPRATROPIUM 3 ML (DUONEB) VIAL INH SCH ×6 (02:43→21:15)
[2017-09-14 04:06] LABS: BASOPHILS % (AUTO) 0 % (0-10); EOSINOPHILS # (AUTO) 0.1 10^3/uL (0.0-0.3); EOSINOPHILS % (AUTO) 1 % (0-10); LYMPHOCYTES # (AUTO) 0.8 X 10^3 (1.0-4.0); LYMPHOCYTES % (AUTO) 10 % (12-44); MEAN CORPUSCULAR HEMOGLOBIN 36 PG (25-34); MEAN CORPUSCULAR HGB CONC 35 G/DL (32-36); MEAN CORPUSCULAR VOLUME 103 FL (80-99); MEAN PLATELET VOLUME 10.2 FL (7.4-10.4); MONOCYTES # (AUTO) 0.7 X 10^3 (0.0-1.0); MONOCYTES % (AUTO) 9 % (0-12); NEUTROPHILS # (AUTO) 6.8 X 10^3 (1.8-7.8); NEUTROPHILS % (AUTO) 80 % (42-75); PLATELET COUNT 168 10^3/uL (130-400); RED BLOOD COUNT 3.25 10^6/uL (4.35-5.85); RED CELL DISTRIBUTION WIDTH 12.3 % (10.0-14.5); WHITE BLOOD COUNT 8.5 10^3/uL (4.3-11.0)
[2017-09-14 04:18] LABS: ABG BASE EXCESS 5.1 MMOL/L (-2.5-2.5); ABG HCO3 29 MMOL/L (23-27); ABG OXYGEN SATURATION 92 % (94-100); ABG PCO2 45 MMHG (35-45); ABG PH 7.43 (7.37-7.43); ABG PO2 62 MMHG (79-93); ABG TCO2 30.6 MMOL/L (21.0-31.0)
[2017-09-14 04:19] LABS: ALLENS TEST YES-POS; PATIENT TEMP 99.1
[2017-09-14 04:23] LABS: ALANINE AMINOTRANSFERASE 19 U/L (0-55); ALBUMIN 2.2 GM/DL (3.2-4.5); ANION GAP 11 MMOL/L (5-14); ASPARTATE AMINO TRANSFERASE 43 U/L (5-34); BILIRUBIN,TOTAL 1.7 MG/DL (0.1-1.0); BLOOD UREA NITROGEN 19 MG/DL (7-18); BUN/CREATININE RATIO 33; CALCIUM 7.8 MG/DL (8.5-10.1); CARBON DIOXIDE 27 MMOL/L (21-32); CHLORIDE 94 MMOL/L (98-107); CREATININE SERUM 0.58 MG/DL (0.60-1.30); GFR ESTIMATED > 60; GLUCOSE 68 MG/DL (70-105); MAGNESIUM 1.3 MG/DL (1.8-2.4); POTASSIUM 3.8 MMOL/L (3.6-5.0); SODIUM 132 MMOL/L (135-145); TOTAL PROTEIN 5.3 GM/DL (6.4-8.2)
[2017-09-14] MEDS: NOREPINEPHRINE 4 MG in NS (IVPB) 250 ML IV SCH ×2 (04:44→12:53)
[2017-09-14] MEDS: POTASSIUM CL 10MEQ/50ML IVPB 50 ML IV SCH (06:00)
[2017-09-14] MEDS: KCL 20 MEQ TAB (K-DUR) PO SCH (06:00)
[2017-09-14] MEDS: CATHETER FLUSH 10 ML SYR IV SCH ×3 (06:00→21:14)
[2017-09-14] MEDS: MAGNESIUM 1 GM/100 ML IVPB 100 ML IV SCH ×5 (06:00→15:06)
--- NOTE | 2017-09-14 07:18 | Diagnostic Imaging Report ---
INDICATION: Acute respiratory failure and dyspnea 0545 hours Portable semiupright view of the chest is obtained with comparison made to study of one day earlier. Endotracheal tube and nasogastric tube remain in stable position. There is now a right jugular central venous catheter which reaches the upper superior vena cava. Right parahilar infiltrate similar to previous study with bilateral pleural fluid, greater on the right. No pneumothorax is seen. IMPRESSION: Stable right parahilar infiltrate with bilateral pleural effusions, greater on the right. Overall, no other significant change is seen. Dictated by: Dictated on workstation # [id number]
[2017-09-14] MEDS ORDERED: methylPREDNISolone 125 MG (Solu-MEDROL) VIAL IVP NR (08:43)
--- NOTE | 2017-09-14 08:52 | Progress Note-Cardiology ---
Cardiology SOAP Progress Note Subjective: Remains intubated. Spouse at the bedside. Objective: I&O/Vital Signs Vital Sign - Last 12Hours 09/14/17 09/14/17 09/14/17 09/14/17 00:00 00:00 00:37 00:43 Pulse 103 98 100 Resp 15 16 B/P (MAP) 116/64 (81) Pulse Ox 100 100 99 O2 Delivery Mechanical Ventilator Mechanical Ventilator O2 Flow Rate 35.00 35.00 FiO2 35 09/14/17 09/14/17 09/14/17 09/14/17 01:00 01:00 02:00 02:43 Pulse 96 100 84 89 Resp 15 16 16 B/P (MAP) 114/73 (87) 107/70 (82) Pulse Ox 100 99 99 O2 Delivery Mechanical Ventilator Mechanical Ventilator O2 Flow Rate 35.00 35.00 FiO2 35 09/14/17 09/14/17 09/14/17 09/14/17 03:00 04:00 04:00 04:52 Pulse 85 89 8 Resp 16 15 23 B/P (MAP) 103/63 (76) 107/62 (77) Pulse Ox 96 92 96 95 O2 Delivery Mechanical Ventilator Mechanical Ventilator Mechanical Ventilator O2 Flow Rate 30.00 35.00 30.00 FiO2 100 09/14/17 09/14/17 09/14/17 09/14/17 05:00 05:14 06:00 07:00 Pulse 111 89 93 87 Resp 30 17 16 15 B/P (MAP) 116/74 (88) 91/59 (70) 97/65 (76) Pulse Ox 88 100 100 100 O2 Delivery Mechanical Ventilator Mechanical Ventilator Mechanical Ventilator O2 Flow Rate 30.00 30.00 30.00 FiO2 45 09/14/17 09/14/17 09/14/17 09/14/17 07:00 07:56 08:00 09:00 Pulse 87 89 87 105 Resp 16 16 33 B/P (MAP) 92/58 (69) 130/76 (94) Pulse Ox 99 99 90 O2 Delivery Mechanical Ventilator Mechanical Ventilator O2 Flow Rate 30.00 30.00 FiO2 45 09/14/17 09/14/17 09:14 11:12 Pulse 98 87 Resp 16 16 B/P (MAP) 130/76 Pulse Ox 100 94 FiO2 45 Intake and Output 09/14/17 00:00 Intake Total 1200 ml Output Total 575 ml Balance 625 ml Weight (Pounds): 158 Weight (Ounces): 7.0 Weight (Calculated Kilograms): 71.617106 Constitutional: other (thin; frail) Respiratory: other (intubated; diminished lower lobes bilat with exp wheezes) Cardiovascular: irregularly irregular, S1 and S2, systolic murmur Gastrointestional: soft, audible bowel sounds, other (thin) Genital/Rectal: other (urniary catheter in place with yosi urine) Extremities: significant edema (bilat 2 (+) pitting edema LE; RUE edema) Neurologic/Psychiatric: other (intubated) Skin: normal color, warm/dry, ulcerations (ulcerations to coccyx, feet and elbows) Results/Procedures: Labs Laboratory Tests 09/13/17 11:56: Lactic Acid Level 1.96 09/13/17 13:04: Urine Color YELLOW, Urine Clarity CLEAR, Urine pH 6, Urine Specific [place] 1.015L, Urine Protein 2+H, Urine Glucose (UA) NEGATIVE, Urine Ketones NEGATIVE, Urine Nitrite NEGATIVE, Urine Bilirubin NEGATIVE, Urine Urobilinogen 4H, Urine Leukocyte Esterase 1+H, Urine RBC (Auto) NEGATIVE, Urine RBC RARE, Urine WBC NONE, Urine Squamous Epithelial Cells RARE, Urine Crystals NONE, Urine Bacteria TRACE, Urine Casts PRESENT, Urine Hyaline Casts 0-2H, Urine Mucus NEGATIVE, Urine Culture Indicated NO 09/13/17 14:43: Sodium Level 127L, Potassium Level 4.7, Chloride Level 91L, Carbon Dioxide Level 26, Anion Gap 10, Blood Urea Nitrogen 23H, Creatinine 0.58L, Estimat Glomerular Filtration Rate > 60, BUN/Creatinine Ratio 40, Glucose Level 91, Calcium Level 8.4L 09/13/17 18:28: Blood Gas Puncture Site RIGHT RADIAL, Blood Gas Patient Temperature 96.4, Arterial Blood pH 7.48H, Arterial Blood Partial Pressure CO2 41, Arterial Blood Partial Pressure O2 123H, Arterial Blood HCO3 31H, Arterial Blood Total CO2 32.2H, Arterial Blood Oxygen Saturation 100, Arterial Blood Base Excess 6.9H, Deric Test POSITIVE, Blood Gas Ventilator Setting YES, Blood Gas Inspired Oxygen 50% 09/14/17 04:00: White Blood Count 8.5, Red Blood Count 3.25L, Hemoglobin 11.8L, Hematocrit 34L, Mean Corpuscular Volume 103H, Mean Corpuscular Hemoglobin 36H, Mean Corpuscular Hemoglobin Concent 35, Red Cell Distribution Width 12.3, Platelet Count 168, Mean Platelet Volume 10.2, Neutrophils (%) (Auto) 80H, Lymphocytes (%) (Auto) 10L, Monocytes (%) (Auto) 9, Eosinophils (%) (Auto) 1, Basophils (%) (Auto) 0, Neutrophils # (Auto) 6.8, Lymphocytes # (Auto) 0.8L, Monocytes # (Auto) 0.7, Eosinophils # (Auto) 0.1, Basophils # (Auto) 0.0, Sodium Level 132L, Potassium Level 3.8, Chloride Level 94L, Carbon Dioxide Level 27, Anion Gap 11, Blood Urea Nitrogen 19H, Creatinine 0.58L, Estimat Glomerular Filtration Rate > 60, BUN/Creatinine Ratio 33, Glucose Level 68L, Calcium Level 7.8L, Phosphorus Level 3.0, Magnesium Level 1.3L, Total Bilirubin 1.7H, Aspartate Amino Transf ( AST/SGOT) 43H, Alanine Aminotransferase (ALT/SGPT) 19, Alkaline Phosphatase 65, Total Protein 5.3L, Albumin 2.2L 09/14/17 04:08: Blood Gas Puncture Site R RAD, Blood Gas Patient Temperature 99.1, Arterial Blood pH 7.43, Arterial Blood Partial Pressure CO2 45, Arterial Blood Partial Pressure O2 62L, Arterial Blood HCO3 29H, Arterial Blood Total CO2 30.6, Arterial Blood Oxygen Saturation 92L, Arterial Blood Base Excess 5.1H, Deric Test YES-POS, Blood Gas Ventilator Setting YES, Blood Gas Inspired Oxygen 30% Microbiology 09/13/17 Gram Stain - Final, Resulted 09/13/17 Sputum Culture - Preliminary, Resulted Strep Species, Alpha Hemolytic Probable Haemophilus Procedures NAME: SIOMARA MCKOY [facility] REC#: [id number] PT STATUS: ADM IN : 1950 PHYSICIAN: TOPHER LEAL DO ADMIT DATE: 09/13/17/ICU Signed Date of Exam: 09/14/17 CHEST 1 VIEW, AP/PA ONLY INDICATION: Acute respiratory failure and dyspnea 0545 hours Portable semiupright view of the chest is obtained with comparison made to study of one day earlier. Endotracheal tube and nasogastric tube remain in stable position. There is now a right jugular central venous catheter which reaches the upper superior vena cava. Right parahilar infiltrate similar to previous study with bilateral pleural fluid, greater on the right. No pneumothorax is seen. IMPRESSION: Stable right parahilar infiltrate with bilateral pleural effusions, greater on the right. Overall, no other significant change is seen. Dictated by: Dictated on workstation # [id number] Dict: 09/14/1712 Trans: 09/14/17751 Interpreted by: AMY REY MD Electronically signed by: AMY REY MD 09/14/17 0752 A/P: Assessment: Acute respiratory failure (multifactorial) requiring intubation and mechanical ventilation Pneumonia with sepsis Acute exacerbation of COPD Pulm hypertension, likely related to COPD Acute on chronic diastolic CHF Echo on 09/13/17: LVEF 50-55%, PASP 50 mmHg A-fib with RVR - duration unknown - currently rate controlled Cachectic appearance H/O HTN - currently hypotensive likely d/t sepsis Heavy ETOH abuse Tobaccoism - stopped approx a month ago H/O opiate abuse in the past H/O bilat leg fractures in the for which he has had at least 2 surgeries in the past at the [facility] Electrolyte abnormalities - hyperkalemia resolved, hyponatremia has improved Bilat carotid dz less than 50% bilat per u/s of 09-13-17 Elevated bilirubin and AST level likely in some part d/t chronic ETOH abuse Plan: Complex management issue with multiple comorbidities Pneumonia with sepsis and respiratory failure leading to intubation which is being managed by medical and surgical services Acute exacerbation of COPD which is being managed by medical services A-fib with RVR which rate is controlled on Cardizem gtt. Onset of a-fib is unknown, however spouse reports that approx a month ago his primary care provider did discuss starting him on Coumadin. She is unaware of why Coumadin was advised. We advise anticoagulation for stroke prophylaxis. We will start Lovenox 1mg/kg subcut BID. H/O ETOH abuse. Monitor for DT's with management per medical services Hyperkalemia and hyponatremia which has improved Acute on chronic diastolic CHF Treat with diuretics as needed Monitor lab closely Advise further coronary work up when clinical condition improves Monitor lab closely Physician Assessment Physician Assessment [facility]. His brother by his side at the time of my exam Cor: irreg Lungs: diminished air entry at the bases, prolonged exp Ext: no c/c/e Echo today: see above A&R * As documented in our note above that I updated (italics) and as noted below * Complex management due to multiple comorbidities * Control heart rate with dilt/dig, as needed and as tolerated * Stroke prophylaxis with enoxaparin * Monitor labs * Prognosis remains guarded * I spoke with his fam and answered CV-related questions EDENILSON DAVID MOTHER'S HELPER Sep 14, 2017 08:52 EVELIN LORENZO MD FACP [facility] Sep 14, 2017 11:43
[2017-09-14] MEDS: DILTIAZEM IV FOR DRIP 125 MG in NS (IVPB) 100 ML IV SCH (09:14)
--- OUTSIDE RECORDS SUMMARY | 2017-09-14 09:32 | XMS REPORT ---
Author SHELLI Robin [facility] eClinicalWorks Address Unknown Phone Unavailable Care Team Providers Care Color Maker Dyer Name Role Phone SHELLI NINO CP Unavailable Allergies, Adverse Reactions, Alerts Substance Reaction Event Type N.K.D.A. Info Not Available Non Drug Allergy Problems Problem Type Condition Code Onset Dates Condition Status Problem Other and unspecified alcohol dependence, unspecified drunkenness 303.90 Active Problem Nondependent alcohol abuse, unspecified drunkenness 305.00 Active Problem Essential hypertension, benign 401.1 Active Assessment Syncope, unspecified syncope type R55 Active Problem Shortness of breath 786.05 Active Problem Chronic airway obstruction, not elsewhere classified 496 Active Medications Medication Code System Code Instructions Start Date End Date Status Dosage Symbicort [facility] [id number] 80-4.5 MCG/ACT INHALE TWO PUFFS BY MOUTH TWICE DAILY IN THE MORNING AND EVENING Multi For Him [address] [facility] [address] Orally not defined Atenolol [facility] [address]-81 50 mg Once a day [address]rofen [facility] [address]-10 200 MG Orally twice a day 1 tablet as needed Procedures Procedure Coding System Code Date Office Visit, Est Pt., Level 3 CPT-4 86089 Jul 25, 2016 Vital Signs Date/Time: Jul 25, 2016 Cardiac Monitoring Heart Rate 76 bpm Weight 127.4 lbs Height 70 in BMI 18.28 Index Blood Pressure Diastolic 78 mmHg Blood Pressure Systolic 158 mmHg Results No Known Results Summary Purpose eClinicalWorks Submission
--- OUTSIDE RECORDS SUMMARY | 2017-09-14 09:32 | XMS REPORT ---
Author SHELLI Robin [facility] eClinicalWorks Address Unknown Phone Unavailable Care Team Providers Care Automobile Dealer Name Role Phone SHELLI NINO CP Unavailable Allergies, Adverse Reactions, Alerts Substance Reaction Event Type N.K.D.A. Info Not Available Non Drug Allergy Problems Problem Type Condition Code Onset Dates Condition Status Problem Essential hypertension, benign 401.1 Active Problem Other and unspecified alcohol dependence, unspecified drunkenness 303.90 Active Problem Simple chronic bronchitis J41.0 Active Problem Chronic airway obstruction, not elsewhere classified 496 Active Assessment Simple chronic bronchitis J41.0 Active Problem Nondependent alcohol abuse, unspecified drunkenness 305.00 Active Problem Shortness of breath 786.05 Active Medications Medication Code System Code Instructions Start Date End Date Status Dosage Multi For Him 50+ [facility] [address] Orally not defined Symbicort [facility] [id number] 80-4.5 MCG/ACT INHALE TWO PUFFS BY MOUTH TWICE DAILY IN THE MORNING AND EVENING Atenolol [facility] [address]-96 50 mg Once a day 1 tablet Ibuprofen [facility] [address]-24 200 MG Orally twice a day 1 tablet as needed Spiriva HandiHaler [facility] [address]-21 18 MCG Inhalation Once a day 1 capsule Procedures Procedure Coding System Code Date COMPLETE CBC W/AUTO DIFF WBC CPT-4 99841 Aug 15, 2016 COMPREHEN METABOLIC PANEL CPT-4 54691 Aug 15, 2016 Office Visit, Est Pt., Level 3 CPT-4 39679 Aug 15, 2016 VENIPUNCT, ROUTINE* CPT-4 07887 Aug 15, 2016 Vital Signs Date/Time: Aug 15, 2016 Cardiac Monitoring Heart Rate 74 bpm Weight 130.5 lbs Height 70 in BMI 18.72 Index Blood Pressure Diastolic 72 mmHg Blood Pressure Systolic 132 mmHg Results Name Result Date Reference Range Unit Abnormality Flag CMP ----Calcium, Serum 8.7 20160815 8.6-10.2 mg/dL ----Carbon Dioxide, Total 25 20160815 18-29 mmol/L ----ALT (SGPT) 27 20160815 0-44 IU/L ----Creatinine, Serum 0.74 20160815 0.76-1.27 mg/dL L ----AST (SGOT) 46 20160815 0-40 IU/L H ----eGFR If NonAfricn Am 97 [id number] >59 mL/min/1.73 ----Alkaline Phosphatase, S 91 20160815 39-117 IU/L ----eGFR If Africn Am 112 [id number] >59 mL/min/1.73 ----Bilirubin, Total 1.3 20160815 0.0-1.2 mg/dL H ----BUN/Creatinine Ratio 5 20160815 10-22 L ----A/G Ratio 1.3 20160815 1.1-2.5 ----Sodium, Serum 125 20160815 136-144 mmol/L L ----Globulin, Total 2.8 20160815 1.5-4.5 g/dL ----Potassium, Serum 4.9 20160815 3.5-5.2 mmol/L ----Glucose, Serum 90 20160815 65-99 mg/dL ----Chloride, Serum 85 04186738 97-106 mmol/L L ----Albumin, Serum 3.6 20160815 3.6-4.8 g/dL ----BUN 4 20160815 8-27 mg/dL L ----Protein, Total, Serum 6.4 58333330 6.0-8.5 g/dL ROUTINE VENIPUNCTURE CBC ----MCHC 35.5 92494270 31.5-35.7 g/dL ----MCH 37.6 [id number] 26.6-33.0 pg H ----Platelets 215 20160815 150-379 x10E3/uL ----RDW 12.4 97139536 12.3-15.4 % ----Immature Granulocytes 1 20160815 % ----Immature Grans (Abs) 0.0 20160815 0.0-0.1 x10E3/uL ----Lymphs 25 20160815 % ----Monocytes 11 20160815 % ----Neutrophils 60 20160815 % ----Neutrophils (Absolute) 4.9 20160815 1.4-7.0 x10E3/uL ----Hematocrit 44.2 20160815 37.5-51.0 % ----Lymphs (Absolute) 2.0 20160815 0.7-3.1 x10E3/uL ----MCV 106 20160815 79-97 fL H ----RBC 4.17 20160815 4.14-5.80 x10E6/uL ----Eos 2 20160815 % ----Basos 1 20160815 % ----Hemoglobin 15.7 20160815 12.6-17.7 g/dL ----Baso (Absolute) 0.1 20160815 0.0-0.2 x10E3/uL ----WBC 8.0 20160815 3.4-10.8 x10E3/uL ----Monocytes(Absolute) 0.9 20160815 0.1-0.9 x10E3/uL ----Eos (Absolute) 0.1 20160815 0.0-0.4 x10E3/uL Summary Purpose eClinicalWorks Submission
--- OUTSIDE RECORDS SUMMARY | 2017-09-14 09:32 | XMS REPORT ---
Author Author SHELLI NINO [facility] eClinicalWorks Address Unknown Phone Unavailable Care Team Providers Care Web Site Developer Name Role Phone SHELLI NINO CP Unavailable Allergies No Known Allergies Problems Problem Type Condition Code Onset Dates Condition Status Problem Other and unspecified alcohol dependence, unspecified drunkenness 303.90 Active Problem Nondependent alcohol abuse, unspecified drunkenness 305.00 Active Problem Essential hypertension, benign 401.1 Active Problem Shortness of breath 786.05 Active Problem Chronic airway obstruction, not elsewhere classified 496 Active Medications Medication Code System Code Instructions Start Date End Date Status Dosage Spiriva HandiHaler [facility] [address]-25 18 MCG Inhalation Once a day 1 capsule Results No Known Results Summary Purpose eClinicalWorks Submission
--- OUTSIDE RECORDS SUMMARY | 2017-09-14 09:32 | XMS REPORT ---
Author Author SHELLI NINO [facility] eClinicalWorks Address Unknown Phone Unavailable Care Team Providers Care Pediatrician/Medical Doctor Name Role Phone SHELLI NINO CP Unavailable [...] Date End Date Status Dosage Spiriva HandiHaler [facility] [address]-94 18 MCG Inhalation Once a day 1 capsule Results No Known Results Summary Purpose eClinicalWorks Submission
--- OUTSIDE RECORDS SUMMARY | 2017-09-14 09:32 | XMS REPORT ---
Author Author SHELLI NINO [facility] eClinicalWorks Address Unknown Phone Unavailable Care Team Providers Care Lan/Wan Engineer Name Role Phone SHELLI NINO CP Unavailable Allergies, Adverse Reactions, Alerts Substance Reaction Event Type N.K.D.A. Info Not Available Non Drug Allergy Problems Problem Type Condition Code Onset Dates Condition Status Problem Other and unspecified alcohol dependence, unspecified drunkenness 303.90 Active Problem Nondependent alcohol abuse, unspecified drunkenness 305.00 Active Problem Essential hypertension, benign 401.1 Active Assessment Dehydration E86.0 Active Problem Shortness of breath 786.05 Active Problem Chronic airway obstruction, not elsewhere classified 496 Active Medications Medication Code System Code Instructions Start Date End Date Status Dosage Atenolol [facility] [id number] 50 MG TAKE ONE TABLET BY MOUTH DAILY Multi For Him 50+ [facility] [address] Orally not defined Symbicort [facility] [id number] 80-4.5 MCG/ACT INHALE TWO PUFFS BY MOUTH TWICE DAILY IN THE MORNING AND EVENING Spiriva HandiHaler [facility] [address]-16 18 MCG Inhalation Once a day 1 capsule Procedures Procedure Coding System Code Date ASSAY THYROID STIM HORMONE CPT-4 16954 Jul 08, 2015 COMPLETE CBC W/AUTO DIFF WBC CPT-4 29062 Jul 08, 2015 Office Visit, Est Pt., Level 3 CPT-4 84851 Jul 08, 2015 COMPREHEN METABOLIC PANEL CPT-4 12779 Jul 08, 2015 LIPID PANEL CPT-4 12730 Jul 08, 2015 VENIPUNCT, ROUTINE* CPT-4 49245 Jul 08, 2015 Vital Signs Date/Time: Jul 08, 2015 Temperature 97.9 F Weight 134 lbs Height 70 in BMI 19.22 Index Blood Pressure Diastolic 84 mmHg Blood Pressure Systolic 140 mmHg Cardiac Monitoring Heart Rate 70 bpm Results Name Result Date Reference Range Unit Abnormality Flag ROUTINE VENIPUNCTURE Summary Purpose eClinicalWorks Submission
--- OUTSIDE RECORDS SUMMARY | 2017-09-14 09:33 | XMS REPORT | Continuity of Care Document ---
Author Author [facility] Address Unknown Phone Unavailable Allergies There is no data. Medications There is no data. Problems Date Dx Coded Attending Type Code Diagnosis Diagnosed By 09/19/2012 496 COPD 09/19/2012 786.05 SHORTNESS OF BREATH 09/19/2012 496 COPD 09/19/2012 786.05 SHORTNESS OF BREATH 09/19/2012 SHELLI NINO APRN 496 COPD 09/19/2012 SHELLI NINO APRN 786.05 SHORTNESS OF BREATH 09/19/2012 SHELLI NINO APRN 496 COPD 09/19/2012 SHELLI NINO APRN 786.05 SHORTNESS OF BREATH 09/19/2012 SHELLI NINO APRN 496 COPD 09/19/2012 SHELLI NINO APRN 786.05 SHORTNESS OF BREATH 09/19/2012 SHELLI NINO APRN 496 COPD 09/19/2012 SHELLI NINO APRN 786.05 SHORTNESS OF BREATH 09/19/2012 SHELLI NINO APRN 496 COPD 09/19/2012 SHELLI NINO APRN 786.05 SHORTNESS OF BREATH 10/03/2012 401.1 HYPERTENSION, BENIGN ESSENTIAL 10/03/2012 SHELLI NINO APRN 401.1 HYPERTENSION, BENIGN ESSENTIAL 10/03/2012 SHELLI NINO APRN 401.1 HYPERTENSION, BENIGN ESSENTIAL 10/03/2012 SHELLI NINO APRN 401.1 HYPERTENSION, BENIGN ESSENTIAL 10/03/2012 SHELLI NINO APRN 401.1 HYPERTENSION, BENIGN ESSENTIAL 10/03/2012 SHELLI NINO APRN 401.1 HYPERTENSION, BENIGN ESSENTIAL 05/15/2013 SHELLI NINO APRN 303.90 ALCOHOL DEPENDENCE 05/15/2013 SHELLI NINO APRN 305.00 ALCOHOL ABUSE UNSPEC 05/15/2013 SHELLI NINO APRN 303.90 ALCOHOL DEPENDENCE 05/15/2013 SHELLI NINO APRN 305.00 ALCOHOL ABUSE UNSPEC 05/15/2013 SHELLI NINO APRN 303.90 ALCOHOL DEPENDENCE 05/15/2013 SHELLI NINO APRN 305.00 ALCOHOL ABUSE UNSPEC 05/15/2013 SHELLI NINO APRN 303.90 ALCOHOL DEPENDENCE 05/15/2013 SHELLI NINO APRN 305.00 ALCOHOL ABUSE UNSPEC Procedures Code [place] [address] ROUTINE VENIPUNCTURE 09/19/2012 25581 XRAY CHEST 2 VIEW 09/19/2012 89579 CBC 09/19/2012 69834 LIPID PANEL 09/19/2012 50069 CMP 09/19/2012 5799621 GFR CALC (RESULT ONLY) 09/19/2012 91253 TSH 09/20/2012 15497 OXIMETRY 11/29/2013 Results There is no data. Encounters ACCT No. Visit Date/Time Discharge Status Pt. Type Provider Facility Loc./Unit Complaint [id number] 08/01/2014 15:42:00 08/01/2014 23:59:59 CLS Outpatient SHELLI NINO APRN [id number] 06/30/2014 12:05:00 06/30/2014 23:59:59 CLS Outpatient SHELLI NINO APRN [id number] 11/29/2013 14:56:00 11/29/2013 23:59:59 CLS Outpatient SHELLI NINO APRN [id number] 05/15/2013 10:58:00 05/15/2013 23:59:59 CLS Outpatient SHELLI NINO APRN [id number] 10/17/2012 10:51:00 10/17/2012 23:59:59 CLS Outpatient SHELLI NINO APRN [id number] 10/03/2012 11:00:00 10/03/2012 23:59:59 CLS Outpatient [id number] 09/19/2012 11:59:00 09/19/2012 23:59:59 CLS Outpatient
--- OUTSIDE RECORDS SUMMARY | 2017-09-14 09:42 | XMS REPORT | Continuity of Care Document ---
Author Author [facility] Address Unknown Phone Unavailable Allergies There is [...] Procedures Code Description [place] [address] ROUTINE VENIPUNCTURE 09/19/2012 19977 XRAY CHEST 2 VIEW 09/19/2012 75361 CBC 09/19/2012 46477 LIPID PANEL 09/19/2012 38950 CMP 09/19/2012 [id number] GFR CALC (RESULT ONLY) 09/19/2012 19277 TSH 09/20/2012 07528 OXIMETRY 11/29/2013 Results There is no data. Encounters ACCT No. Visit Date/Time Discharge Status Pt. Type Provider Facility Loc./Unit Complaint [id number] 08/01/2014 15:42:00 08/01/2014 23:59:59 CLS Outpatient SHELLI NINO APRN [id number] 06/30/2014 12:05:00 06/30/2014 23:59:59 CLS Outpatient SHELLI NINO APRN [id number] 11/29/2013 14:56:00 11/29/2013 23:59:59 CLS Outpatient SHELLI NINO APRN [id number] 05/15/2013 10:58:00 05/15/2013 23:59:59 CLS Outpatient SHELLI NINO APRN [id number] 10/17/2012 10:51:00 10/17/2012 23:59:59 CLS Outpatient SHELLI NINO APRN [id number] 10/03/2012 11:00:00 10/03/2012 23:59:59 CLS Outpatient [id number] 09/19/2012 11:59:00 09/19/2012 23:59:59 CLS Outpatient
--- NOTE | 2017-09-14 10:40 | Progress Note-Hospitalist ---
Progress Note HPI/CC on Admission CC: Dyspnea HPI: This is a 67-year-old white male clinic patient of [facility] the claims he has no medical problems with takes Lasix at home and an inhaler that has a 30 drinks day history of alcohol use most recently cut down to 10 a day but the girlfriend states it's only 6 a day and continues to smoke who presented to the emergency room with shortness of breath found to have new onset congestive heart failure with elevated BNP and pulmonary congestion on chest x-ray atrial fibrillation with rapid ventricular response in addition to sepsis that required intubation the ER due to the severity of his respiratory status. I am unable to assess any details whatsoever from the patient considering his tachypnea and respiratory distress. Progress Notes/Assess & Plan Date Seen 09/14/17 Time Seen by Provider: 09:15 Admission Dx/Process Acute respiratory failure due to new onset congestive heart failure with volume overload, bilateral pneumonia, new onset atrial fibrillation with rapid ventricular response along with sepsis Diagonsis/Assessment & Plan Patient maintains on ventilator due to failure to wean Reviewed all meds and will maintain Zosyn and steroids and Cardizem drip He is on assist-control vent setting now Normal saline is at 150 mL an hour Did not require levofed Obtained history that he previously was a 30 drink a day alcoholic but had recently decreased to 10 drinks a day and the girlfriend had reported that it's only 6 drinks a day Vital signs reviewed, patient intubated and sedated Irregular irregular rhythm with 81 bpm rate controlled on Cardizem drip Diminished breath sounds all sawyer intubated No edema Laboratory Tests 09/13/17 14:43 09/14/17 04:00 Plan: IVF Cardizem IV drip Intubation Steroids Diagnosis/Problems Diagnosis/Problems (1) Acute respiratory failure with hypoxia Status: Acute Assessment & Plan: Intubation (2) Atrial fibrillation with RVR Status: Acute Assessment & Plan: IV Cardizem (3) Bilateral pneumonia Status: Acute Qualifiers: Qualified Codes: J18.9 - Pneumonia, unspecified organism (4) Sepsis Status: Acute Qualifiers: Qualified Codes: A41.9 - Sepsis, unspecified organism (5) Acute heart failure Status: Acute Qualifiers: Qualified Codes: I50.21 - Acute systolic (congestive) heart failure (6) Smoker Status: Chronic (7) Alcoholism Status: Chronic Assessment & Plan: Withdrawal management (8) Hyponatremia Status: Acute Assessment & Plan: IVF NS SHAYNE CABRERA DO Sep 14, 2017 10:40
[2017-09-14] MEDS: FOLIC ACID 1 MG TAB PO SCH (10:55)
[2017-09-14] MEDS: LORazepam INJ 2 MG/ML (ATIVAN) VIAL IVP PRN ×4 (10:55→21:14)
[2017-09-14] MEDS: ENOXAPARIN 60 MG/0.6 ML (LOVENOX) SYR SC SCH ×2 (10:56→11:47)
[2017-09-14] MEDS: THIAMINE 100 MG/ML 2 ML (VITAMIN B-1) VIAL IV SCH (10:56)
[2017-09-14] MEDS: ENOXAPARIN 30 MG/0.3 ML (LOVENOX) SYR SC SCH (12:34)
[2017-09-14] MEDS: methylPREDNISolone 40 MG/ML (Solu-MEDROL) VIAL IV SCH ×3 (12:53→23:37)
--- NOTE | 2017-09-14 15:56 | Pulmonary Progress Note ---
Subjective Time Seen by Provider: 15:52 Subjective/Events-last exam Pt is doing better. Exam Exam Vital Signs Date Time Temp Pulse Resp B/P (MAP) Pulse Ox O2 Delivery O2 Flow Rate FiO2 09/14/17 14:26 81 16 98 45 09/14/17 12:34 87 16 84/55 96 Mechanical Ventilator 09/14/17 11:12 87 16 94 45 09/14/17 11:00 82 16 101/63 (76) 96 Mechanical Ventilator 30.00 09/14/17 10:00 90 15 101/58 (72) 100 Mechanical Ventilator 30.00 09/14/17 09:14 98 16 130/76 100 09/14/17 09:00 105 33 130/76 (94) 90 Mechanical Ventilator 30.00 09/14/17 08:00 87 16 92/58 (69) 99 Mechanical Ventilator 30.00 09/14/17 07:56 89 16 99 45 09/14/17 07:00 87 09/14/17 07:00 87 15 97/65 (76) 100 Mechanical Ventilator 30.00 09/14/17 06:00 93 16 91/59 (70) 100 Mechanical Ventilator 30.00 09/14/17 05:14 89 17 100 45 09/14/17 05:00 111 30 116/74 (88) 88 Mechanical Ventilator 30.00 09/14/17 04:52 8 23 95 100 09/14/17 04:00 89 15 107/62 (77) 96 Mechanical Ventilator 30.00 09/14/17 04:00 92 Mechanical Ventilator 35.00 09/14/17 03:00 85 16 103/63 (76) 96 Mechanical Ventilator 30.00 09/14/17 02:43 89 16 99 35 09/14/17 02:00 84 16 107/70 (82) 99 Mechanical Ventilator 35.00 09/14/17 01:00 100 09/14/17 01:00 96 15 114/73 (87) 100 Mechanical Ventilator 35.00 09/14/17 00:43 100 09/14/17 00:37 98 16 99 35 09/14/17 00:00 100 Mechanical Ventilator 35.00 09/14/17 00:00 103 15 116/64 (81) 100 Mechanical Ventilator 35.00 09/13/17 23:00 104 16 106/70 (82) 100 Mechanical Ventilator 35.00 09/13/17 22:13 89 16 100 40 09/13/17 22:00 104 16 111/66 (81) 100 Mechanical Ventilator 35.00 09/13/17 21:00 90 16 113/77 (89) 100 Mechanical Ventilator 40.00 09/13/17 20:00 74 16 110/74 (86) 100 Mechanical Ventilator 40.00 09/13/17 20:00 100 Mechanical Ventilator 50.00 09/13/17 20:00 96.4 09/13/17 19:00 70 09/13/17 19:00 71 16 105/73 (84) 100 Mechanical Ventilator 40.00 09/13/17 18:53 71 16 100 50 09/13/17 18:00 66 15 103/61 (75) 100 Mechanical Ventilator 50.00 09/13/17 17:00 64 15 102/57 (72) 100 Mechanical Ventilator 50.00 09/13/17 16:45 59 16 97/65 (76) 100 Mechanical Ventilator 50.00 09/13/17 16:30 67 16 96/79 (85) 100 Mechanical Ventilator 50.00 09/13/17 16:15 64 16 95/58 (70) 94 Mechanical Ventilator 50.00 09/13/17 16:00 57 15 86/61 (69) 87 Mechanical Ventilator 50.00 09/13/17 16:00 97.0 Mechanical Ventilator 50.00 09/13/17 16:00 100 Mechanical Ventilator 50.00 I & O 09/14/17 07:00 Intake Total 2800 ml Output Total 900 ml Balance 1900 ml General Appearance: WD/WN, Anxious, Chronically ill, Severe Distress, Thin HEENT: PERRL/EOMI, Normal ENT Inspection, Pharynx Normal Neck: Full Range of Motion, Normal Inspection, Non Tender, Supple, Carotid Bruit Respiratory: Chest Non Tender, Accessory Muscle Use, Crackles, Decreased Breath Sounds, Rales, Respiratory Distress, Wheezing Cardiovascular: No Edema, No Gallop, No JVD, No Murmur, Normal Peripheral Pulses, Irregularly Irregular, Tachycardia Capillary Refill: Less Than 3 Seconds Extremity: Normal Capillary Refill, Normal Inspection, Normal Range of Motion, Non Tender, No Calf Tenderness, No Pedal Edema Neurologic/Psychiatric: Alert, Oriented x3, No Motor/Sensory Deficits, Depressed Affect Skin: Normal Color, Warm/Dry Lymphatic: No Adenopathy Results Lab Laboratory Tests 09/13/17 10:05 09/13/17 14:43 09/14/17 04:00 Assessment/Plan Assessment/Plan Acute respiratory failure requiring mechanical ventilation -Pt failed weaning trial Pneumonia with sepsis -Continue Abx COPDAE -solumedrol Cardiomyopathy -Echo pending -cardiology consulted ETOH dependance -Alcohol withdrawal Tobacco dependance 233 Clinical Quality Measures DVT/VTE Risk/Contraindication: Risk Factor Score Per Nursin RFS Level Per Nursing on Admit: 4+=Very High TOPHER LEAL DO Sep 14, 2017 15:56
[2017-09-14] MEDS: DILTIAZEM DRIP 125 MG/NS 100 ML TOTAL VOLUME 125 ML IV SCH ×2 (16:15)
[2017-09-14] MEDS: FAMOTIDINE 20MG/2ML IV (PEPCID) IV SCH (21:14)
[2017-09-15] VITALS (32 sets, daily range): BP systolic 94–119; BP diastolic 53–84
[2017-09-15] MEDS: PIPERACILLIN/TAZOBACTAM 4.5 GM/NS 100 ML IVPB IV SCH ×6 (01:26→18:29)
[2017-09-15] MEDS: RT-ALBUTEROL/IPRATROPIUM 3 ML (DUONEB) VIAL INH SCH ×6 (01:53→21:17)
[2017-09-15] MEDS: NS IV 1000 ML 1,000 ML IV SCH ×2 (03:40→15:01)
[2017-09-15 04:14] LABS: BASOPHILS % (AUTO) 0 % (0-10); EOSINOPHILS % (AUTO) 0 % (0-10); LYMPHOCYTES # (AUTO) 0.2 X 10^3 (1.0-4.0); LYMPHOCYTES % (AUTO) 3 % (12-44); MEAN CORPUSCULAR HEMOGLOBIN 35 PG (25-34); MEAN CORPUSCULAR HGB CONC 34 G/DL (32-36); MEAN CORPUSCULAR VOLUME 102 FL (80-99); MEAN PLATELET VOLUME 10.1 FL (7.4-10.4); MONOCYTES # (AUTO) 0.2 X 10^3 (0.0-1.0); MONOCYTES % (AUTO) 2 % (0-12); NEUTROPHILS # (AUTO) 7.1 X 10^3 (1.8-7.8); NEUTROPHILS % (AUTO) 95 % (42-75); PLATELET COUNT 192 10^3/uL (130-400); RED BLOOD COUNT 3.38 10^6/uL (4.35-5.85); RED CELL DISTRIBUTION WIDTH 12.5 % (10.0-14.5); WHITE BLOOD COUNT 7.4 10^3/uL (4.3-11.0)
[2017-09-15 04:32] LABS: ANION GAP 10 MMOL/L (5-14); BLOOD UREA NITROGEN 16 MG/DL (7-18); BUN/CREATININE RATIO 25; CALCIUM 7.5 MG/DL (8.5-10.1); CARBON DIOXIDE 24 MMOL/L (21-32); CHLORIDE 98 MMOL/L (98-107); CREATININE SERUM 0.64 MG/DL (0.60-1.30); GFR ESTIMATED > 60; GLUCOSE 169 MG/DL (70-105); MAGNESIUM 2.1 MG/DL (1.8-2.4); PHOSPHORUS 3.3 MG/DL (2.3-4.7); POTASSIUM 3.8 MMOL/L (3.6-5.0); SODIUM 132 MMOL/L (135-145)
[2017-09-15] MEDS: MAGNESIUM 1 GM/100 ML IVPB 100 ML IV SCH (04:41)
[2017-09-15] MEDS: POTASSIUM CL 10MEQ/50ML IVPB 50 ML IV SCH (04:41)
[2017-09-15] MEDS: KCL 20 MEQ TAB (K-DUR) PO SCH (04:41)
[2017-09-15 04:43] LABS: BAND NEUTROPHILS 0 %; BASOPHILS % (MANUAL) 0 %; EOSINOPHILS % (MANUAL) 0 %; LYMPHOCYTES % (MANUAL) 1 %; NEUTROPHILS % (MANUAL) 98 %
[2017-09-15 04:47] LABS: ABG BASE EXCESS 1.2 MMOL/L (-2.5-2.5); ABG HCO3 25 MMOL/L (23-27); ABG OXYGEN SATURATION 94 % (94-100); ABG PCO2 33 MMHG (35-45); ABG PH 7.49 (7.37-7.43); ABG PO2 62 MMHG (79-93); ABG TCO2 25.5 MMOL/L (21.0-31.0)
[2017-09-15 04:51] LABS: ALLENS TEST YES-POS; PATIENT TEMP 97.8
[2017-09-15] MEDS: methylPREDNISolone 40 MG/ML (Solu-MEDROL) VIAL IV SCH ×4 (05:14→23:56)
[2017-09-15] MEDS: CATHETER FLUSH 10 ML SYR IV SCH ×3 (05:15→20:14)
--- NOTE | 2017-09-15 05:54 | Pulmonary Progress Note ---
Subjective Time Seen by Provider: 05:59 Subjective/Events-last exam Pt sedated on vent. Exam Exam Vital Signs Date Time Temp Pulse Resp B/P (MAP) Pulse Ox O2 Delivery O2 Flow Rate FiO2 09/15/17 04:00 97.2 89 21 113/79 (90) 100 Mechanical Ventilator 30.00 09/15/17 03:40 100 Mechanical Ventilator 30 09/15/17 03:30 93 17 99 30 09/15/17 03:00 95 15 94/53 (67) 100 Mechanical Ventilator 30.00 09/15/17 02:00 97 17 95/61 (72) 100 Mechanical Ventilator 30.00 09/15/17 01:53 79 16 100 35 09/15/17 01:00 110 09/15/17 01:00 96 18 97/61 (73) 100 Mechanical Ventilator 35.00 09/15/17 00:32 88/56 09/14/17 23:59 109 19 95 35 09/14/17 23:44 125 16 110/72 100 Mechanical Ventilator 35.00 09/14/17 23:35 100 Mechanical Ventilator 35 09/14/17 23:35 97.8 109 18 100 Mechanical Ventilator 35.00 09/14/17 23:00 133 24 110/62 (78) 100 Mechanical Ventilator 35.00 09/14/17 22:00 124 21 112/73 (86) 100 Mechanical Ventilator 35.00 09/14/17 21:16 111 21 100 45 09/14/17 21:00 116 16 146/87 (106) 100 Mechanical Ventilator 30.00 09/14/17 20:00 104 20 122/70 (87) 96 Mechanical Ventilator 30.00 09/14/17 20:00 100 Mechanical Ventilator 45 09/14/17 19:01 89 09/14/17 19:00 89 16 103/65 (78) 95 Mechanical Ventilator 30.00 09/14/17 19:00 98.4 45.00 09/14/17 18:39 77 16 97 45 09/14/17 18:00 90 16 109/64 (79) 97 Mechanical Ventilator 30.00 09/14/17 17:00 76 15 84/54 (64) 97 Mechanical Ventilator 30.00 09/14/17 16:06 91 16 97 45 09/14/17 16:00 100 Mechanical Ventilator 45 09/14/17 16:00 81 17 99/57 (71) 97 Mechanical Ventilator 30.00 09/14/17 16:00 97.4 Mechanical Ventilator 45.00 09/14/17 15:00 92 20 101/60 (74) 97 Mechanical Ventilator 30.00 09/14/17 14:26 81 16 98 45 09/14/17 14:00 80 22 99/64 (76) 97 Mechanical Ventilator 30.00 09/14/17 13:00 78 15 88/53 (65) 96 Mechanical Ventilator 30.00 09/14/17 13:00 78 09/14/17 12:34 87 16 84/55 96 Mechanical Ventilator 09/14/17 12:00 86 29 86/46 (59) 97 Mechanical Ventilator 30.00 09/14/17 12:00 96.5 Mechanical Ventilator 45.00 09/14/17 12:00 100 Mechanical Ventilator 45 09/14/17 11:12 87 16 94 45 09/14/17 11:00 82 16 101/63 (76) 96 Mechanical Ventilator 30.00 09/14/17 10:00 90 15 101/58 (72) 100 Mechanical Ventilator 30.00 09/14/17 09:14 98 16 130/76 100 09/14/17 09:00 105 33 130/76 (94) 90 Mechanical Ventilator 30.00 09/14/17 08:24 100 Mechanical Ventilator 45 09/14/17 08:24 99.4 Mechanical Ventilator 45.00 09/14/17 08:00 87 16 92/58 (69) 99 Mechanical Ventilator 30.00 09/14/17 07:56 89 16 99 45 09/14/17 07:00 87 09/14/17 07:00 87 15 97/65 (76) 100 Mechanical Ventilator 30.00 09/14/17 06:00 93 16 91/59 (70) 100 Mechanical Ventilator 30.00 I & O 09/15/17 07:00 Intake Total 4060 ml Output Total 850 ml Balance 3210 ml General Appearance: WD/WN, Anxious, Chronically ill, Moderate Distress, Thin HEENT: PERRL/EOMI, Normal ENT Inspection, Pharynx Normal Neck: Full Range of Motion, Normal Inspection, Non Tender, Supple, Carotid Bruit Respiratory: Chest Non Tender, Accessory Muscle Use, Crackles, Decreased Breath Sounds, Rales, Respiratory Distress, Wheezing Cardiovascular: No Edema, No Gallop, No JVD, No Murmur, Normal Peripheral Pulses, Irregularly Irregular, Tachycardia Capillary Refill: Less Than 3 Seconds Extremity: Normal Capillary Refill, Normal Inspection, Normal Range of Motion, Non Tender, No Calf Tenderness, No Pedal Edema Neurologic/Psychiatric: Alert, Oriented x3, No Motor/Sensory Deficits, Depressed Affect Skin: Normal Color, Warm/Dry Lymphatic: No Adenopathy Results Lab Laboratory Tests 09/13/17 10:05 09/13/17 14:43 09/14/17 04:00 09/15/17 04:05 Assessment/Plan Assessment/Plan Acute respiratory failure requiring mechanical ventilation -Will D/C Diprivan , ativan -Will use Precedex if needed for signs of alcohol withdrawal and agitation -D/C Levophed Pneumonia with sepsis -Continue Abx COPDAE -solumedrol Cardiomyopathy -Echo pending -cardiology consulted ETOH dependance -Alcohol withdrawal Tobacco dependance 233 Clinical Quality Measures DVT/VTE Risk/Contraindication: Risk Factor Score Per Nursin RFS Level Per Nursing on Admit: 4+=Very High TOPHER LEAL DO Sep 15, 2017 05:54
[2017-09-15] MEDS ORDERED: FUROSEMIDE 40 MG/4 ML INJ (LASIX) IVP ONE (06:15)
--- NOTE | 2017-09-15 08:33 | Diagnostic Imaging Report ---
Portable upright radiograph of the chest. INDICATION: Respiratory failure. FINDINGS: ET tube and NG tube are again noted and unchanged right IJ line is seen. There is decreased lung volumes compared to the previous exam with increased bibasilar atelectasis. Stable right infrahilar infiltrate. There are bilateral effusions [id number] on the right and small on the left. IMPRESSION: Increasing bibasilar atelectasis and effusions. Stable right infrahilar infiltrates. Dictated by: Dictated on workstation # [id number]
--- NOTE | 2017-09-15 08:51 | Progress Note-Cardiology ---
Cardiology SOAP Progress Note Subjective: Remains intubated and sedated. Son at the bedside. Objective: I&O/Vital Signs Vital Sign - Last 12Hours 09/14/17 09/14/17 09/14/17 09/14/17 21:16 22:00 23:00 23:35 Temp 97.8 Pulse 111 124 133 109 Resp 21 21 24 18 B/P (MAP) 112/73 (86) 110/62 (78) Pulse Ox 100 100 100 100 O2 Delivery Mechanical Ventilator Mechanical Ventilator Mechanical Ventilator O2 Flow Rate 35.00 35.00 35.00 FiO2 45 09/14/17 09/14/17 09/14/17 09/15/17 23:35 23:44 23:59 00:32 Pulse 125 109 Resp 16 19 B/P (MAP) 110/72 88/56 Pulse Ox 100 100 95 O2 Delivery Mechanical Ventilator Mechanical Ventilator O2 Flow Rate 35.00 FiO2 35 35 09/15/17 09/15/17 09/15/17 09/15/17 01:00 01:00 01:53 02:00 Pulse 96 110 79 97 Resp 18 16 17 B/P (MAP) 97/61 (73) 95/61 (72) Pulse Ox 100 100 100 O2 Delivery Mechanical Ventilator Mechanical Ventilator O2 Flow Rate 35.00 30.00 FiO2 35 09/15/17 09/15/17 09/15/17 09/15/17 03:00 03:30 03:40 04:00 Temp 97.2 Pulse 95 93 89 Resp 15 17 21 B/P (MAP) 94/53 (67) 113/79 (90) Pulse Ox 100 99 100 100 O2 Delivery Mechanical Ventilator Mechanical Ventilator Mechanical Ventilator O2 Flow Rate 30.00 30.00 FiO2 30 30 09/15/17 09/15/17 09/15/17 09/15/17 05:00 06:00 06:40 07:00 Pulse 105 99 109 100 Resp 24 17 18 18 B/P (MAP) 108/84 (92) 116/64 (81) 118/73 (88) Pulse Ox 100 100 100 100 O2 Delivery Mechanical Ventilator Mechanical Ventilator Mechanical Ventilator O2 Flow Rate 30.00 30.00 30.00 FiO2 30 09/15/17 09/15/17 09/15/17 07:00 08:00 08:16 Pulse 103 110 101 Resp 16 19 B/P (MAP) 111/74 (86) Pulse Ox 100 100 O2 Delivery Mechanical Ventilator O2 Flow Rate 30.00 FiO2 30 Intake and Output 09/15/17 00:00 Intake Total 2830 ml Output Total 380 ml Balance 2450 ml Weight (Pounds): 161 Weight (Ounces): 3.0 Weight (Calculated Kilograms): 73.328753 Constitutional: other (thin; frail) Respiratory: other (intubated; diminished lower lobes bilat with exp wheezes) Cardiovascular: irregularly irregular, S1 and S2, systolic murmur Gastrointestional: soft, audible bowel sounds, other (thin) Genital/Rectal: other (urniary catheter in place with yosi urine) Extremities: significant edema (bilat 2 (+) pitting edema LE; RUE edema) Neurologic/Psychiatric: other (intubated) Skin: normal color, warm/dry, ulcerations (ulcerations to coccyx, feet and elbows) Results/Procedures: Labs Laboratory Tests 09/14/17 15:05: Glucometer 131H 09/15/17 04:05: White Blood Count 7.4, Red Blood Count 3.38L, Hemoglobin 11.9L, Hematocrit 35L, Mean Corpuscular Volume 102H, Mean Corpuscular Hemoglobin 35H, Mean Corpuscular Hemoglobin Concent 34, Red Cell Distribution Width 12.5, Platelet Count 192, Mean Platelet Volume 10.1, Neutrophils (%) (Auto) 95H, Lymphocytes (%) (Auto) 3L , Monocytes (%) (Auto) 2, Eosinophils (%) (Auto) 0, Basophils (%) (Auto) 0, Neutrophils # (Auto) 7.1, Lymphocytes # (Auto) 0.2L, Monocytes # (Auto) 0.2, Eosinophils # (Auto) 0.0, Basophils # (Auto) 0.0, Neutrophils % (Manual) 98, Lymphocytes % (Manual) 1, Monocytes % (Manual) 1, Eosinophils % (Manual) 0, Basophils % (Manual) 0, Band Neutrophils 0, Toxic Granulation 1+, Sodium Level 132L, Potassium Level 3.8, Chloride Level 98, Carbon Dioxide Level 24, Anion Gap 10, Blood Urea Nitrogen 16, Creatinine 0.64, Estimat Glomerular Filtration Rate > 60, BUN/Creatinine Ratio 25, Glucose Level 169H, Calcium Level 7.5L, Phosphorus Level 3.3, Magnesium Level 2.1 12/22/17 04:30: Blood Gas Puncture Site L RAD, Blood Gas Patient Temperature 97.8, Arterial Blood pH 7.49H, Arterial Blood Partial Pressure CO2 33L, Arterial Blood Partial Pressure O2 62L, Arterial Blood HCO3 25, Arterial Blood Total CO2 25.5, Arterial Blood Oxygen Saturation 94, Arterial Blood Base Excess 1.2, Deric Test YES-POS, Blood Gas Ventilator Setting YES, Blood Gas Inspired Oxygen 30% FIO2 Microbiology 09/13/17 Blood Culture - Preliminary, Resulted No growth 09/13/17 Gram Stain - Final, Resulted 09/13/17 Sputum Culture - Preliminary, Resulted Streptococcus Pneumoniae Probable Haemophilus Laboratory Tests 09/13/17 10:05 09/13/17 14:43 09/14/17 04:00 09/15/17 04:05 A/P: Assessment: Acute respiratory failure (multifactorial) requiring intubation and mechanical ventilation Pneumonia with sepsis Acute exacerbation of COPD Pulm hypertension, likely related to COPD Acute on chronic diastolic CHF Echo on 09/13/17: LVEF 50-55%, PASP 50 mmHg A-fib with RVR - duration unknown - currently rate controlled Marked hematuria necessitating reduction/holding of enoxaparin Cachectic appearance H/O HTN - currently hypotensive likely d/t sepsis Heavy ETOH abuse Tobaccoism - stopped approx a month ago H/O opiate abuse in the past H/O bilat leg fractures in the for which he has had at least 2 surgeries in the past at the [facility] Electrolyte abnormalities - hyperkalemia resolved, hyponatremia has improved Bilat carotid dz less than 50% bilat per u/s of 09-13-17 Elevated bilirubin and AST level likely in some part d/t chronic ETOH abuse Plan: Complex management issue with multiple comorbidities Pneumonia with sepsis and respiratory failure leading to intubation which is being managed by medical and surgical services Acute exacerbation of COPD which is being managed by medical services A-fib with RVR which rate is controlled on Cardizem gtt. Onset of a-fib is unknown, however spouse reports that approx a month ago his primary care provider did discuss starting him on Coumadin. She is unaware of why Coumadin was advised. We advise anticoagulation for stroke prophylaxis. We will start Lovenox 1mg/kg subcut BID. H/O ETOH abuse. Monitor for DT's with management per medical services Hyperkalemia and hyponatremia which has improved Acute on chronic diastolic CHF Treat with diuretics as needed Monitor lab closely Advise further coronary work up when clinical condition improves Monitor lab closely Poor prognosis Road [facility]ner consult today as per medical services Physician Assessment Physician Assessment Intubated and on mech vent and unresponsive. His son by his side at the time of my exam Cor: irreg Lungs: diminished air entry at the bases, prolonged exp Ext: no c/c/e Echo today: see above A&R * As documented in our note above that I updated (italics) and as noted below * Complex management due to multiple comorbidities * Control heart rate with dilt/dig, as needed and as tolerated * Stroke prophylaxis with enoxaparin is complicated by his gross hematuria. Due to ongoing hematuria we have had to hold/reduce enoxaparin * Monitor labs * Prognosis remains guarded * I had a detailed discussion with his son this am. Given the clinical course thus far, his prognosis does not appear good EDENILSON DAVID Sep 15, 2017 08:51 EVELIN LORENZO MD FACP [facility] Sep 15, 2017 09:09
[2017-09-15] MEDS: FOLIC ACID 1 MG TAB PO SCH (09:50)
[2017-09-15] MEDS: THIAMINE 100 MG/ML 2 ML (VITAMIN B-1) VIAL IV SCH (09:51)
--- NOTE | 2017-09-15 11:21 | Progress Note-Hospitalist ---
Progress Note HPI/CC on Admission CC: Dyspnea HPI: This is a 67-year-old white male clinic patient of [facility] the claims he has no medical problems with takes Lasix at home and an inhaler that has a 30 drinks day history of alcohol use most recently cut down to 10 a day but the girlfriend states it's only 6 a day and continues to smoke who presented to the emergency room with shortness of breath found to have new onset congestive heart failure with elevated BNP and pulmonary congestion on chest x-ray atrial fibrillation with rapid ventricular response in addition to sepsis that required intubation the ER due to the severity of his respiratory status. I am unable to assess any details whatsoever from the patient considering his tachypnea and respiratory distress. Progress Notes/Assess & Plan Date Seen 09/15/17 Time Seen by Provider: 10:30 Admission Dx/Process Acute respiratory failure due to new onset congestive heart failure with volume overload, bilateral pneumonia, new onset atrial fibrillation with rapid ventricular response along with sepsis Diagonsis/Assessment & Plan Patient maintains on ventilator due to failure to wean yesterday, referral to [place] placed Reviewed all meds and labs Updated family at bedside Does not appear to be in any pain Vital signs reviewed, patient intubated and sedated Irregular irregular rhythm with 72 bpm rate Diminished breath sounds all sawyer intubated No edema Laboratory Tests 09/15/17 04:05 Plan: Intubation Steroids Supportive care Very poor prognosis overall due to poor reserve and multitude of medical issues that are all new onset Diagnosis/Problems Diagnosis/Problems (1) Acute respiratory failure with hypoxia Status: Acute Assessment & Plan: Intubation to be maintained and likely will require termite treater helper vent management (2) Atrial fibrillation with RVR Status: Acute Assessment & Plan: IV Cardizem (3) Bilateral pneumonia Status: Acute Qualifiers: Qualified Codes: J18.9 - Pneumonia, unspecified organism (4) Sepsis Status: Acute Qualifiers: Qualified Codes: A41.9 - Sepsis, unspecified organism (5) Acute heart failure Status: Acute Qualifiers: Qualified Codes: I50.21 - Acute systolic (congestive) heart failure (6) Smoker Status: Chronic (7) Alcoholism Status: Chronic Assessment & Plan: Withdrawal management (8) Hyponatremia Status: Acute Assessment & Plan: IVF SHAYNE LEES DO Sep 15, 2017 11:21
[2017-09-15] MEDS: ENOXAPARIN 30 MG/0.3 ML (LOVENOX) SYR SC SCH (13:01)
[2017-09-15] MEDS: DEXMEDETOMIDINE INJECTION 400 MCG in NS (IVPB) 100 ML IV SCH ×2 (15:00→19:01)
[2017-09-15] MEDS: DILTIAZEM DRIP 125 MG/NS 100 ML TOTAL VOLUME 125 ML IV SCH ×2 (16:32)
[2017-09-15] MEDS: FAMOTIDINE 20MG/2ML IV (PEPCID) IV SCH (20:13)
[2017-09-16] VITALS (37 sets, daily range): BP systolic 103–132; BP diastolic 62–88
[2017-09-16] MEDS: PIPERACILLIN/TAZOBACTAM 4.5 GM/NS 100 ML IVPB IV SCH ×6 (01:19→16:12)
[2017-09-16] MEDS: RT-ALBUTEROL/IPRATROPIUM 3 ML (DUONEB) VIAL INH SCH ×6 (02:18→22:20)
[2017-09-16] MEDS: NS IV 1000 ML 1,000 ML IV SCH ×2 (03:46→16:10)
[2017-09-16 04:36] LABS: BASOPHILS % (AUTO) 0 % (0-10); EOSINOPHILS % (AUTO) 0 % (0-10); LYMPHOCYTES # (AUTO) 0.2 X 10^3 (1.0-4.0); LYMPHOCYTES % (AUTO) 2 % (12-44); MEAN CORPUSCULAR HEMOGLOBIN 36 PG (25-34); MEAN CORPUSCULAR HGB CONC 35 G/DL (32-36); MEAN CORPUSCULAR VOLUME 103 FL (80-99); MEAN PLATELET VOLUME 9.9 FL (7.4-10.4); MONOCYTES # (AUTO) 0.3 X 10^3 (0.0-1.0); MONOCYTES % (AUTO) 3 % (0-12); NEUTROPHILS # (AUTO) 11.4 X 10^3 (1.8-7.8); NEUTROPHILS % (AUTO) 95 % (42-75); PLATELET COUNT 189 10^3/uL (130-400); RED BLOOD COUNT 3.37 10^6/uL (4.35-5.85); RED CELL DISTRIBUTION WIDTH 12.9 % (10.0-14.5); WHITE BLOOD COUNT 11.9 10^3/uL (4.3-11.0)
[2017-09-16 05:03] LABS: ANION GAP 13 MMOL/L (5-14); BLOOD UREA NITROGEN 19 MG/DL (7-18); BUN/CREATININE RATIO 30; CALCIUM 7.7 MG/DL (8.5-10.1); CARBON DIOXIDE 23 MMOL/L (21-32); CHLORIDE 101 MMOL/L (98-107); CREATININE SERUM 0.64 MG/DL (0.60-1.30); GFR ESTIMATED > 60; GLUCOSE 145 MG/DL (70-105); MAGNESIUM 1.7 MG/DL (1.8-2.4); PHOSPHORUS 3.3 MG/DL (2.3-4.7); POTASSIUM 3.4 MMOL/L (3.6-5.0); SODIUM 137 MMOL/L (135-145)
[2017-09-16 05:05] LABS: ABG BASE EXCESS -0.3 MMOL/L (-2.5-2.5); ABG HCO3 23 MMOL/L (23-27); ABG OXYGEN SATURATION 94 % (94-100); ABG PCO2 34 MMHG (35-45); ABG PH 7.45 (7.37-7.43); ABG PO2 66 MMHG (79-93); ABG TCO2 24.4 MMOL/L (21.0-31.0)
[2017-09-16] MEDS: POTASSIUM CL 10MEQ/50ML IVPB 50 ML IV SCH ×3 (05:05→06:17)
[2017-09-16] MEDS: KCL 20 MEQ TAB (K-DUR) PO SCH (05:05)
[2017-09-16] MEDS: MAGNESIUM 1 GM/100 ML IVPB 100 ML IV SCH ×3 (05:05→06:17)
[2017-09-16 05:07] LABS: ALLENS TEST YES-POS
[2017-09-16 05:08] LABS: PATIENT TEMP 97.9
[2017-09-16] MEDS: methylPREDNISolone 40 MG/ML (Solu-MEDROL) VIAL IV SCH ×4 (05:23→23:36)
[2017-09-16] MEDS: CATHETER FLUSH 10 ML SYR IV SCH ×3 (05:24→20:54)
[2017-09-16] MEDS: DEXMEDETOMIDINE INJECTION 400 MCG in NS (IVPB) 100 ML IV SCH ×2 (05:33→16:11)
[2017-09-16] MEDS: ENOXAPARIN 30 MG/0.3 ML (LOVENOX) SYR SC SCH (08:35)
[2017-09-16] MEDS: FOLIC ACID 1 MG TAB PO SCH (08:35)
[2017-09-16] MEDS: THIAMINE 100 MG/ML 2 ML (VITAMIN B-1) VIAL IV SCH (08:35)
--- NOTE | 2017-09-16 09:36 | Diagnostic Imaging Report ---
Clinical indication: Followup. Patient on ventilator. Exam: Portable chest x-ray, upright view. Comparison: Portable chest x-ray, semiupright view dated 09/15/2015. Findings: There is slight improved aeration of the medial right lung base. There is continued bibasilar atelectasis versus infiltrate. There is concern for bilateral pleural effusions (right side more than the left). Stable small airspace opacity involving the periphery of the left upper lobe. Pulmonary vasculature and cardiac silhouette within normal limits. Again seen is an ET tube with the tip grossly 2.8 cm from the expected region of the dalia. Stable position of right IJ central line with tip in the mid superior vena cava region. The remainder of this exam shows no significant interval change compared to the prior study of comparison.. Impression: 1: There is improved aeration of the medial right lung base. There is continued bilateral bibasilar and left upper lobe atelectasis and/or infiltrate. 2: Stable bilateral pleural effusions (right side more than the left). 3: Stable lines and tubes, as described above. Dictated by: Dictated on workstation # [id number]
[2017-09-16] MEDS: LORazepam INJ 2 MG/ML (ATIVAN) VIAL IVP PRN ×2 (09:57→21:41)
[2017-09-16] MEDS: DILTIAZEM DRIP 125 MG/NS 100 ML TOTAL VOLUME 125 ML IV SCH ×2 (11:19)
--- NOTE | 2017-09-16 13:27 | Progress Note-Cardiology ---
Cardiology SOAP Progress Note Subjective: Intubated, sedated, unresponsive. Spouse by bedside Objective: I&O/Vital Signs Vital Sign - Last 12Hours 09/16/17 09/16/17 09/16/17 09/16/17 02:00 02:18 03:00 03:45 Temp 97.6 Pulse 108 100 107 97 Resp 16 17 15 17 B/P (MAP) 104/65 (78) 115/78 (90) 117/64 (81) Pulse Ox 99 99 100 100 O2 Delivery Mechanical Ventilator Mechanical Ventilator Mechanical Ventilator O2 Flow Rate 25.00 25.00 25.00 FiO2 25 09/16/17 09/16/17 09/16/17 09/16/17 03:45 04:00 04:15 05:00 Pulse 102 91 96 Resp 14 17 18 B/P (MAP) 115/67 (83) 111/76 (88) Pulse Ox 100 100 100 100 O2 Delivery Mechanical Ventilator Mechanical Ventilator Mechanical Ventilator O2 Flow Rate 25.00 25.00 FiO2 25 25 09/16/17 09/16/17 09/16/17 09/16/17 06:00 06:34 06:54 07:00 Pulse 120 101 99 106 Resp 15 18 16 B/P (MAP) 119/71 (87) 116/77 (90) Pulse Ox 100 100 100 O2 Delivery Mechanical Ventilator Mechanical Ventilator O2 Flow Rate 25.00 25.00 FiO2 25 09/16/17 09/16/17 09/16/17 09/16/17 08:00 08:00 08:34 09:00 Pulse 93 93 114 Resp 15 19 16 B/P (MAP) 117/72 (87) 119/70 (86) Pulse Ox 100 94 100 100 O2 Delivery Mechanical Ventilator Mechanical Ventilator Mechanical Ventilator O2 Flow Rate 25.00 25.00 FiO2 25 21 09/16/17 09/16/17 09/16/17 09/16/17 10:44 11:19 12:00 12:33 Temp 98.6 Pulse 105 101 102 Resp 19 15 17 B/P (MAP) 119/80 Pulse Ox 100 100 100 100 O2 Delivery Mechanical Ventilator FiO2 21 25 21 Intake and Output 09/16/17 00:00 Intake Total 1415 ml Output Total 695 ml Balance 720 ml Weight (Pounds): 163 Weight (Ounces): 0.0 Weight (Calculated Kilograms): 73.524663 Constitutional: other (thin; frail) Respiratory: other (intubated; diminished lower lobes bilat with exp wheezes) Cardiovascular: irregularly irregular, S1 and S2, systolic murmur Gastrointestional: soft, audible bowel sounds, other (thin) Genital/Rectal: other (urniary catheter in place with yosi urine) Extremities: significant edema (bilat 2 (+) pitting edema LE; RUE edema) Neurologic/Psychiatric: other (intubated) Skin: normal color, warm/dry, ulcerations (ulcerations to coccyx, feet and elbows) Results/Procedures: Labs Laboratory Tests 09/16/17 04:20: White Blood Count 11.9H, Red Blood Count 3.37L, Hemoglobin 12.0L, Hematocrit 35L , Mean Corpuscular Volume 103H, Mean Corpuscular Hemoglobin 36H, Mean Corpuscular Hemoglobin Concent 35, Red Cell Distribution Width 12.9, Platelet Count 189, Mean Platelet Volume 9.9, Neutrophils (%) (Auto) 95H, Lymphocytes (% ) (Auto) 2L, Monocytes (%) (Auto) 3, Eosinophils (%) (Auto) 0, Basophils (%) ( Auto) 0, Neutrophils # (Auto) 11.4H, Lymphocytes # (Auto) 0.2L, Monocytes # ( Auto) 0.3, Eosinophils # (Auto) 0.0, Basophils # (Auto) 0.0, Sodium Level 137, Potassium Level 3.4L, Chloride Level 101, Carbon Dioxide Level 23, Anion Gap 13 , Blood Urea Nitrogen 19H, Creatinine 0.64, Estimat Glomerular Filtration Rate > 60, BUN/Creatinine Ratio 30, Glucose Level 145H, Calcium Level 7.7L, Phosphorus Level 3.3, Magnesium Level 1.7L 09/16/17 04:50: Blood Gas Puncture Site L RAD, Blood Gas Patient Temperature 97.9, Arterial Blood pH 7.45H, Arterial Blood Partial Pressure CO2 34L, Arterial Blood Partial Pressure O2 66L, Arterial Blood HCO3 23, Arterial Blood Total CO2 24.4, Arterial Blood Oxygen Saturation 94, Arterial Blood Base Excess -0.3, Deric Test YES-POS, Blood Gas Ventilator Setting YES, Blood Gas Inspired Oxygen 25% Microbiology 09/13/17 Blood Culture - Preliminary, Resulted No growth 09/13/17 Gram Stain - Final, Resulted 09/13/17 Sputum Culture - Preliminary, Resulted Streptococcus Pneumoniae Haemophilus Influenza Laboratory Tests 09/15/17 04:05 09/16/17 04:20 A/P: Assessment: Acute respiratory failure (multifactorial) requiring intubation and mechanical ventilation Pneumonia with sepsis Acute exacerbation of COPD Pulm hypertension, likely related to COPD Acute on chronic diastolic CHF Echo on 09/13/17: LVEF 50-55%, PASP 50 mmHg A-fib with RVR - duration unknown - currently rate controlled Marked hematuria necessitating reduction/holding of enoxaparin Cachectic appearance H/O HTN - currently hypotensive likely d/t sepsis Heavy ETOH abuse Tobaccoism - stopped approx a month ago H/O opiate abuse in the past H/O bilat leg fractures in the for which he has had at least 2 surgeries in the past at the [facility] Electrolyte abnormalities - hyperkalemia resolved, hyponatremia has improved Bilat carotid dz less than 50% bilat per u/s of 09-13-17 Elevated bilirubin and AST level likely in some part d/t chronic ETOH abuse Plan: Complex management issue due to multiple comorbidities and little response to treatment thus far Continue current card regimen Replenish K Monitor labs Prognosis guarded to poor I spoke with his spouse and answered CV-related questions EVELIN LORENZO MD FACP [facility] Sep 16, 2017 13:27
--- NOTE | 2017-09-16 13:52 | Progress Note (SOAP) ---
Subjective Subjective/Events-last exam Pt sedated and intubated. UTO history. NO acute events overnight. Review of Systems Date Seen by Provider: Sep 16, 2017 Time Seen by Provider: 09:00 UTO Objective Exam Last Set of Vital Signs Vital Signs Date Time Temp Pulse Resp B/P (MAP) Pulse Ox O2 Delivery O2 Flow Rate FiO2 09/16/17 12:33 102 17 100 21 09/16/17 12:00 Mechanical Ventilator 09/16/17 11:19 98.6 119/80 09/16/17 09:00 25.00 Capillary Refill : Less Than 3 Seconds I&O Intake and Output 09/15/17 23:59 Intake Total 2645 ml Output Total 1770 ml Balance 875 ml Intake Oral 0 ml IV Total 2425 ml Other 220 ml Output Urine Total 1670 ml Gastric Drainage Total 100 ml General: Other (sedated intubated) Lungs: Other (wheezing throughout) Heart: Regular Rate, Normal S1, Normal S2, No Murmurs, Gallops, Rubs Abdomen: Normal Bowel Sounds, Soft, No Tenderness Results/Procedures Lab Laboratory Tests 09/16/17 04:20: White Blood Count 11.9H, Red Blood Count 3.37L, Hemoglobin 12.0L, Hematocrit 35L , Mean Corpuscular Volume 103H, Mean Corpuscular Hemoglobin 36H, Mean Corpuscular Hemoglobin Concent 35, Red Cell Distribution Width 12.9, Platelet Count 189, Mean Platelet Volume 9.9, Neutrophils (%) (Auto) 95H, Lymphocytes (% ) (Auto) 2L, Monocytes (%) (Auto) 3, Eosinophils (%) (Auto) 0, Basophils (%) ( Auto) 0, Neutrophils # (Auto) 11.4H, Lymphocytes # (Auto) 0.2L, Monocytes # ( Auto) 0.3, Eosinophils # (Auto) 0.0, Basophils # (Auto) 0.0, Sodium Level 137, Potassium Level 3.4L, Chloride Level 101, Carbon Dioxide Level 23, Anion Gap 13 , Blood Urea Nitrogen 19H, Creatinine 0.64, Estimat Glomerular Filtration Rate > 60, BUN/Creatinine Ratio 30, Glucose Level 145H, Calcium Level 7.7L, Phosphorus Level 3.3, Magnesium Level 1.7L 09/16/17 04:50: Blood Gas Puncture Site L RAD, Blood Gas Patient Temperature 97.9, Arterial Blood pH 7.45H, Arterial Blood Partial Pressure CO2 34L, Arterial Blood Partial Pressure O2 66L, Arterial Blood HCO3 23, Arterial Blood Total CO2 24.4, Arterial Blood Oxygen Saturation 94, Arterial Blood Base Excess -0.3, Deric Test YES-POS, Blood Gas Ventilator Setting YES, Blood Gas Inspired Oxygen 25% Microbiology 09/13/17 Blood Culture - Preliminary, Resulted No growth 09/13/17 Gram Stain - Final, Resulted 09/13/17 Sputum Culture - Preliminary, Resulted Streptococcus Pneumoniae Haemophilus Influenza Radiology NAME: SIOMARA MCKOY [facility] REC#: [id number] PT STATUS: ADM IN : 1950 PHYSICIAN: CATALINO BERMUDEZ MD ADMIT DATE: 09/13/17/ICU Signed Date of Exam: 09/13/17 CHEST 1 VIEW, AP/PA ONLY INDICATION: Post intubation EXAMINATION: PA chest obtained at 1238 hrs pm, and compared to same day at 1048 hrs am. There is a new ET tube in place tip overlying the mid to lower trachea. There is an NG tube seen with tip in the proximal portion of the stomach. There is worsening perihilar central venous congestion and infiltrate with worsening bibasilar infiltrate. There is no pneumothorax. There is a minimal pleural fluid on both sides. IMPRESSION: Worsening perihilar central vascular congestion and infiltrate. New ET tube in good position with tip overlying lower trachea. NG tube tip overlies proximal portion of the stomach. Dictated by: Dictated on workstation # [id number] Dict: 09/13/17 1307 Trans: 09/13/17 1341 Interpreted by: AMADO GERMAIN MD Electronically signed by: AMADO GERMAIN MD 09/13/17 1341 Assessment/Plan Assessment/Plan Plan (1) Acute respiratory failure with hypoxia 09/16 - overall prognosis very poor. still requiring ventilatory support. doing sedation weans as we are able. (2) Atrial fibrillation with RVR 09/16 - remains on cardizem drip with sinus tach (3) Bilateral pneumonia 09/16 - continue zosyn for now. Positive for Haemophilus and Strep. (4) Sepsis 09/16 - aggressive IV fluid resuscitation (5) Acute heart failure 09/16 - Dr Mitchell consulting, no changes today (6) Smoker 09/16 - contributes to overall poor prognosis (7) Alcoholism 09/16 - no issues d/t sedation on precedex (8) Hyponatremia 09/16 - resolved (1) Acute respiratory failure with hypoxia Status: Acute (2) Atrial fibrillation with RVR Status: Acute (3) Bilateral pneumonia Status: Acute Qualifiers: Qualified Codes: J18.9 - Pneumonia, unspecified organism (4) Sepsis Status: Acute Qualifiers: Qualified Codes: A41.9 - Sepsis, unspecified organism (5) Acute heart failure Status: Acute Qualifiers: Qualified Codes: I50.21 - Acute systolic (congestive) heart failure (6) Smoker Status: Chronic (7) Alcoholism Status: Chronic (8) Hyponatremia Status: Acute Clinical Quality Measures DVT/VTE Risk/Contraindication: Risk Factor Score Per Nursin RFS Level Per Nursing on Admit: 4+=Very High VIDAL BELL MD Sep 16, 2017 1:52 pm
[2017-09-16] MEDS: FAMOTIDINE 20MG/2ML IV (PEPCID) IV SCH (20:54)
[2017-09-16] MEDS: inSUlin (REGULAR) HUMAN 1 UNIT/0.01 ML (CHARGE PER UNIT) SC SCH (20:58)
[2017-09-17] VITALS (33 sets, daily range): BP systolic 110–148; BP diastolic 22–107
[2017-09-17] MEDS: DEXMEDETOMIDINE INJECTION 400 MCG in NS (IVPB) 100 ML IV SCH ×4 (00:02→18:01)
[2017-09-17] MEDS: PIPERACILLIN/TAZOBACTAM 4.5 GM/NS 100 ML IVPB IV SCH ×6 (01:32→18:00)
[2017-09-17] MEDS: RT-ALBUTEROL/IPRATROPIUM 3 ML (DUONEB) VIAL INH SCH ×6 (02:10→22:30)
[2017-09-17] MEDS: CATHETER FLUSH 10 ML SYR IV SCH ×3 (04:48→22:24)
[2017-09-17] MEDS: NS IV 1000 ML 1,000 ML IV SCH ×2 (04:48→16:48)
[2017-09-17 05:13] LABS: BASOPHILS % (AUTO) 0 % (0-10); EOSINOPHILS % (AUTO) 0 % (0-10); LYMPHOCYTES # (AUTO) 0.2 X 10^3 (1.0-4.0); LYMPHOCYTES % (AUTO) 2 % (12-44); MEAN CORPUSCULAR HEMOGLOBIN 36 PG (25-34); MEAN CORPUSCULAR HGB CONC 35 G/DL (32-36); MEAN CORPUSCULAR VOLUME 103 FL (80-99); MEAN PLATELET VOLUME 10.2 FL (7.4-10.4); MONOCYTES # (AUTO) 0.4 X 10^3 (0.0-1.0); MONOCYTES % (AUTO) 4 % (0-12); NEUTROPHILS # (AUTO) 9.2 X 10^3 (1.8-7.8); NEUTROPHILS % (AUTO) 94 % (42-75); PLATELET COUNT 170 10^3/uL (130-400); RED BLOOD COUNT 3.53 10^6/uL (4.35-5.85); RED CELL DISTRIBUTION WIDTH 12.9 % (10.0-14.5); WHITE BLOOD COUNT 9.8 10^3/uL (4.3-11.0)
[2017-09-17 05:39] LABS: ANION GAP 13 MMOL/L (5-14); BLOOD UREA NITROGEN 19 MG/DL (7-18); BUN/CREATININE RATIO 31; CALCIUM 7.8 MG/DL (8.5-10.1); CARBON DIOXIDE 21 MMOL/L (21-32); CHLORIDE 103 MMOL/L (98-107); CREATININE SERUM 0.62 MG/DL (0.60-1.30); GFR ESTIMATED > 60; GLUCOSE 142 MG/DL (70-105); MAGNESIUM 1.9 MG/DL (1.8-2.4); PHOSPHORUS 2.6 MG/DL (2.3-4.7); POTASSIUM 3.3 MMOL/L (3.6-5.0); SODIUM 137 MMOL/L (135-145)
[2017-09-17] MEDS: MAGNESIUM 1 GM/100 ML IVPB 100 ML IV SCH (05:44)
[2017-09-17] MEDS: KCL 20 MEQ TAB (K-DUR) PO SCH (05:44)
[2017-09-17] MEDS: POTASSIUM CL 10MEQ/50ML IVPB 50 ML IV SCH ×5 (05:44→10:17)
[2017-09-17] MEDS: inSUlin (REGULAR) HUMAN 1 UNIT/0.01 ML (CHARGE PER UNIT) SC SCH ×3 (06:02→18:18)
[2017-09-17] MEDS: methylPREDNISolone 40 MG/ML (Solu-MEDROL) VIAL IV SCH ×3 (06:03→18:01)
[2017-09-17] MEDS: THIAMINE 100 MG/ML 2 ML (VITAMIN B-1) VIAL IV SCH (08:53)
[2017-09-17] MEDS: FOLIC ACID 1 MG TAB PO SCH (08:53)
--- NOTE | 2017-09-17 09:35 | Diagnostic Imaging Report ---
CLINICAL INDICATION: Patient on ventilator. EXAM: Portable chest x-ray semiupright view. COMPARISON: Portable chest x-ray dated 09/16/2017. FINDINGS: Again seen ET tube with tip at the T4 level in good position. Orogastric feeding tube again seen with tip just at the cardiac portion of the stomach. This too should be advanced at least another 10 cm to ensure appropriate positioning. There is stable patchy consolidation involving the right lung base and right pleural effusion. There is mild airspace opacification involving the left lung base with slight improved aeration seen. Discoid atelectasis in lateral left upper lobe seen. Pulmonary vasculature and cardiac silhouette is within normal limits. Again seen right IJ central line in stable position. IMPRESSION: 1: Orogastric or nasogastric feeding tube seen with its distal portion overlying the expected region of the cardiac portion of the stomach. This tube should be advanced at least another 10 cm to ensure appropriate positioning. 2: There is slight improved aeration of the left lung base. Otherwise, there is continued bibasilar infiltrate (right side more than the left), and right pleural effusion. 3: ET tube seen in good position. Dictated by: Dictated on workstation # [id number]
[2017-09-17] MEDS: ENOXAPARIN 40 MG/0.4 ML (LOVENOX) SYR SC SCH (13:14)
[2017-09-17] MEDS: LORazepam INJ 2 MG/ML (ATIVAN) VIAL IVP PRN ×2 (14:04→20:10)
--- NOTE | 2017-09-17 14:44 | Progress Note-Cardiology ---
Cardiology SOAP Progress Note Subjective: Intubated, on mech vent, unresponsive Objective: I&O/Vital Signs Vital Sign - Last 12Hours 09/17/17 09/17/17 09/17/17 09/17/17 03:00 03:25 04:00 04:15 Temp 97.2 Pulse 87 94 100 Resp 15 16 18 B/P (MAP) 128/79 (95) 128/81 (97) Pulse Ox 100 100 100 100 O2 Delivery Mechanical Ventilator Mechanical Ventilator Mechanical Ventilator O2 Flow Rate 21.00 21.00 FiO2 21 21 09/17/17 09/17/17 09/17/17 09/17/17 05:00 06:00 06:57 07:00 Pulse 94 105 100 96 Resp 13 17 B/P (MAP) 120/74 (89) 131/88 (102) Pulse Ox 100 100 100 O2 Delivery Mechanical Ventilator Mechanical Ventilator O2 Flow Rate 21.00 21.00 FiO2 21 09/17/17 09/17/17 09/17/17 09/17/17 07:00 08:50 09:00 10:00 Temp 98.6 Pulse 89 98 114 116 Resp 15 15 18 B/P (MAP) 126/83 (97) 134/83 (100) 135/81 (99) 136/93 (107) Pulse Ox 100 100 100 100 O2 Delivery Mechanical Ventilator Mechanical Ventilator Mechanical Ventilator Mechanical Ventilator O2 Flow Rate 21.00 21.00 21.00 21.00 09/17/17 09/17/17 09/17/17 09/17/17 10:10 11:00 12:00 13:00 Temp 97.9 Pulse 103 109 100 101 Resp 17 22 14 B/P (MAP) 142/94 (110) 148/105 (119) Pulse Ox 100 100 100 O2 Delivery Mechanical Ventilator Mechanical Ventilator O2 Flow Rate 21.00 21.00 FiO2 21 Intake and Output 09/16/17 23:59 Intake Total 130 ml Output Total 380 ml Balance -250 ml Weight (Pounds): 164 Weight (Ounces): 0.8 Weight (Calculated Kilograms): 74.714824 Constitutional: other (thin; frail) Respiratory: other (intubated; diminished lower lobes bilat with exp wheezes) Cardiovascular: irregularly irregular, S1 and S2, systolic murmur Gastrointestional: soft, audible bowel sounds, other (thin) Genital/Rectal: other (urniary catheter in place with yosi urine) Extremities: significant edema (bilat 2 (+) pitting edema LE; RUE edema) Neurologic/Psychiatric: other (intubated) Skin: normal color, warm/dry, ulcerations (ulcerations to coccyx, feet and elbows) Results/Procedures: Labs Laboratory Tests 09/16/17 20:53: Glucometer 144H 09/17/17 04:40: White Blood Count 9.8, Red Blood Count 3.53L, Hemoglobin 12.7L, Hematocrit 36L, Mean Corpuscular Volume 103H, Mean Corpuscular Hemoglobin 36H, Mean Corpuscular Hemoglobin Concent 35, Red Cell Distribution Width 12.9, Platelet Count 170, Mean Platelet Volume 10.2, Neutrophils (%) (Auto) 94H, Lymphocytes (%) (Auto) 2L , Monocytes (%) (Auto) 4, Eosinophils (%) (Auto) 0, Basophils (%) (Auto) 0, Neutrophils # (Auto) 9.2H, Lymphocytes # (Auto) 0.2L, Monocytes # (Auto) 0.4, Eosinophils # (Auto) 0.0, Basophils # (Auto) 0.0, Sodium Level 137, Potassium Level 3.3L, Chloride Level 103, Carbon Dioxide Level 21, Anion Gap 13, Blood Urea Nitrogen 19H, Creatinine 0.62, Estimat Glomerular Filtration Rate > 60, BUN /Creatinine Ratio 31, Glucose Level 142H, Calcium Level 7.8L, Phosphorus Level 2.6, Magnesium Level 1.9 09/17/17 11:59: Glucometer 118H Microbiology 09/13/17 Blood Culture - Preliminary, Resulted No growth 09/13/17 Gram Stain - Final, Resulted 09/13/17 Sputum Culture - Preliminary, Resulted Streptococcus Pneumoniae Haemophilus Influenza Laboratory Tests 09/16/17 04:20 09/17/17 04:40 A/P: Assessment: Acute respiratory failure (multifactorial) requiring intubation and mechanical ventilation Pneumonia with sepsis Acute exacerbation of COPD Pulm hypertension, likely related to COPD Acute on chronic diastolic CHF Echo on 09/13/17: LVEF 50-55%, PASP 50 mmHg A-fib with RVR - duration unknown - currently rate controlled Marked hematuria necessitating reduction/holding of enoxaparin Cachectic appearance H/O HTN - currently hypotensive likely d/t sepsis Heavy ETOH abuse Tobaccoism - stopped approx a month ago H/O opiate abuse in the past H/O bilat leg fractures in the for which he has had at least 2 surgeries in the past at the [place] Electrolyte abnormalities - hyperkalemia resolved, hyponatremia has improved Bilat carotid dz less than 50% bilat per u/s of 12-20-17 Elevated bilirubin and AST level likely in some part d/t chronic ETOH abuse Plan: Complex management issue due to multiple comorbidities and little response to treatment thus far Continue current card regimen Replenish K Monitor labs Prognosis guarded to poor I spoke with his family (son and brother) today and answered CV-related questions EVELIN LORENZO MD FACP FACC CCDS Sep 17, 2017 14:44
[2017-09-17] MEDS ORDERED: DILTIAZEM 125 MG/25 ML IV (CARDIZEM) IV ONE (15:05)
[2017-09-17] MEDS: DILTIAZEM DRIP 125 MG/NS 100 ML TOTAL VOLUME 125 ML IV SCH ×2 (15:21)
[2017-09-17] MEDS ORDERED: ALBUMIN 5% 12.5 GM/250 ML 250 ML IV NR (15:27)
[2017-09-17] MEDS: FAMOTIDINE 20MG/2ML IV (PEPCID) IV SCH (22:24)
--- NOTE | 2017-09-17 23:42 | Progress Note (SOAP) ---
Subjective Subjective/Events-last exam Sedated, intubated. no acute events overnight. Review of Systems Date Seen by Provider: Sep 17, 2017 Time Seen by Provider: 10:00 UTO Objective Exam Last Set of Vital Signs Vital Signs Date Time Temp Pulse Resp B/P (MAP) Pulse Ox O2 Delivery O2 Flow Rate FiO2 09/17/17 23:00 87 18 110/74 (86) 100 Mechanical Ventilator 21.00 09/17/17 22:33 21 09/17/17 15:23 97.7 Capillary Refill : Greater Than 3 Seconds I&O Intake and Output 09/17/17 00:00 Intake Total 1624 ml Output Total 890 ml Balance 734 ml Intake Oral 0 ml IV Total 1504 ml Other 120 ml Output Urine Total 890 ml General: Other (sedated, intubated) Lungs: Other (wheezing, only slightly overbreathing the vent) Heart: Regular Rate, Normal S1, Normal S2, No Murmurs, Gallops, Rubs Abdomen: Normal Bowel Sounds, Soft Extremities: No Edema Results/Procedures Lab Laboratory Tests 09/17/17 04:40: White Blood Count 9.8, Red Blood Count 3.53L, Hemoglobin 12.7L, Hematocrit 36L, Mean Corpuscular Volume 103H, Mean Corpuscular Hemoglobin 36H, Mean Corpuscular Hemoglobin Concent 35, Red Cell Distribution Width 12.9, Platelet Count 170, Mean Platelet Volume 10.2, Neutrophils (%) (Auto) 94H, Lymphocytes (%) (Auto) 2L , Monocytes (%) (Auto) 4, Eosinophils (%) (Auto) 0, Basophils (%) (Auto) 0, Neutrophils # (Auto) 9.2H, Lymphocytes # (Auto) 0.2L, Monocytes # (Auto) 0.4, Eosinophils # (Auto) 0.0, Basophils # (Auto) 0.0, Sodium Level 137, Potassium Level 3.3L, Chloride Level 103, Carbon Dioxide Level 21, Anion Gap 13, Blood Urea Nitrogen 19H, Creatinine 0.62, Estimat Glomerular Filtration Rate > 60, BUN /Creatinine Ratio 31, Glucose Level 142H, Calcium Level 7.8L, Phosphorus Level 2.6, Magnesium Level 1.9 09/17/17 11:59: Glucometer 118H 09/17/17 15:35: Lactic Acid Level 0.74 09/17/17 18:09: Glucometer 186H Microbiology 09/13/17 Blood Culture - Preliminary, Resulted No growth 09/13/17 Gram Stain - Final, Resulted 09/13/17 Sputum Culture - Preliminary, Resulted Streptococcus Pneumoniae Haemophilus Influenza Radiology NAME: SIOMARA MCKOY [facility] REC#: [id number] PT STATUS: ADM IN : 1950 PHYSICIAN: CATALINO BERMUDEZ MD ADMIT DATE: 09/13/17/ICU Signed Date of Exam: 09/13/17 CHEST 1 VIEW, AP/PA ONLY INDICATION: Post intubation EXAMINATION: PA chest obtained at 1238 hrs pm, and compared to same day at 1048 hrs am. There is a new ET tube in place tip overlying the mid to lower trachea. There is an NG tube seen with tip in the proximal portion of the stomach. There is worsening perihilar central venous congestion and infiltrate with worsening bibasilar infiltrate. There is no pneumothorax. There is a minimal pleural fluid on both sides. IMPRESSION: Worsening perihilar central vascular congestion and infiltrate. New ET tube in good position with tip overlying lower trachea. NG tube tip overlies proximal portion of the stomach. Dictated by: Dictated on workstation # [id number] Dict: 09/13/17 1307 Trans: 09/13/17 1341 Interpreted by: AMADO GERMAIN MD Electronically signed by: AMADO GERMAIN MD 09/13/17 1341 Assessment/Plan Assessment/Plan Plan (1) Acute respiratory failure with hypoxia 09/16 - overall prognosis very poor. still requiring ventilatory support. doing sedation weans as we are able. 09/17 - no changes to vent except weaning FiO2. gases stable. (2) Atrial fibrillation with RVR 09/16 - remains on cardizem drip with sinus tach 09/17 - being managed by Dr Mitchell, no changes today, rate controlled and in NSR (3) Bilateral pneumonia 09/16 - continue zosyn for now. Positive for Haemophilus and Strep. 09/17 - cont zosyn d/t severity of illness. (4) Sepsis 09/16 - aggressive IV fluid resuscitation 09/17 - resolved. (5) Acute heart failure 09/16 - Dr Stephen consulting, no changes today 09/17 - no changes today (6) Smoker 09/16 - contributes to overall poor prognosis (7) Alcoholism 09/16 - no issues d/t sedation on precedex (8) Hyponatremia 09/16 - resolved (1) Acute respiratory failure with hypoxia Status: Acute (2) Atrial fibrillation with RVR Status: Acute (3) Bilateral pneumonia Status: Acute Qualifiers: Qualified Codes: J18.9 - Pneumonia, unspecified organism (4) Sepsis Status: Acute Qualifiers: Qualified Codes: A41.9 - Sepsis, unspecified organism (5) Acute heart failure Status: Acute Qualifiers: Qualified Codes: I50.21 - Acute systolic (congestive) heart failure (6) Smoker Status: Chronic (7) Alcoholism Status: Chronic (8) Hyponatremia Status: Acute Clinical Quality Measures DVT/VTE Risk/Contraindication: Risk Factor Score Per Nursin RFS Level Per Nursing on Admit: 4+=Very High VIDAL BELL MD Sep 17, 2017 11:42 pm
[2017-09-18] VITALS (34 sets, daily range): BP systolic 96–149; BP diastolic 64–89
[2017-09-18] MEDS: inSUlin (REGULAR) HUMAN 1 UNIT/0.01 ML (CHARGE PER UNIT) SC SCH ×4 (00:33→17:26)
[2017-09-18] MEDS: methylPREDNISolone 40 MG/ML (Solu-MEDROL) VIAL IV SCH ×4 (00:33→17:26)
[2017-09-18] MEDS: PIPERACILLIN/TAZOBACTAM 4.5 GM/NS 100 ML IVPB IV SCH ×6 (00:34→17:26)
[2017-09-18] MEDS: DEXMEDETOMIDINE INJECTION 400 MCG in NS (IVPB) 100 ML IV SCH ×3 (01:36→18:06)
[2017-09-18] MEDS: RT-ALBUTEROL/IPRATROPIUM 3 ML (DUONEB) VIAL INH SCH ×6 (02:16→22:24)
[2017-09-18] MEDS: LORazepam INJ 2 MG/ML (ATIVAN) VIAL IVP PRN ×3 (05:01→11:33)
[2017-09-18] MEDS: NS IV 1000 ML 1,000 ML IV SCH ×2 (05:06→23:05)
[2017-09-18] MEDS: CATHETER FLUSH 10 ML SYR IV SCH ×2 (05:08→14:27)
[2017-09-18 05:17] LABS: ABG BASE EXCESS -2.6 MMOL/L (-2.5-2.5); ABG HCO3 22 MMOL/L (23-27); ABG OXYGEN SATURATION 91 % (94-100); ABG PCO2 35 MMHG (35-45); ABG PO2 55 MMHG (79-93); ABG TCO2 22.7 MMOL/L (21.0-31.0)
[2017-09-18 05:21] LABS: ALLENS TEST YES-POS; PATIENT TEMP 97.4
[2017-09-18 05:48] LABS: ANION GAP 12 MMOL/L (5-14); BLOOD UREA NITROGEN 20 MG/DL (7-18); BUN/CREATININE RATIO 30; CALCIUM 8.2 MG/DL (8.5-10.1); CARBON DIOXIDE 22 MMOL/L (21-32); CHLORIDE 106 MMOL/L (98-107); CREATININE SERUM 0.66 MG/DL (0.60-1.30); GFR ESTIMATED > 60; GLUCOSE 155 MG/DL (70-105); PHOSPHORUS 2.6 MG/DL (2.3-4.7); POTASSIUM 3.9 MMOL/L (3.6-5.0); SODIUM 140 MMOL/L (135-145)
[2017-09-18 05:53] LABS: BASOPHILS % (AUTO) 0 % (0-10); EOSINOPHILS % (AUTO) 0 % (0-10); LYMPHOCYTES # (AUTO) 0.2 X 10^3 (1.0-4.0); LYMPHOCYTES % (AUTO) 2 % (12-44); MEAN CORPUSCULAR HEMOGLOBIN 36 PG (25-34); MEAN CORPUSCULAR HGB CONC 34 G/DL (32-36); MEAN CORPUSCULAR VOLUME 105 FL (80-99); MEAN PLATELET VOLUME 9.9 FL (7.4-10.4); MONOCYTES # (AUTO) 0.4 X 10^3 (0.0-1.0); MONOCYTES % (AUTO) 4 % (0-12); NEUTROPHILS # (AUTO) 8.7 X 10^3 (1.8-7.8); NEUTROPHILS % (AUTO) 94 % (42-75); PLATELET COUNT 147 10^3/uL (130-400); RED BLOOD COUNT 3.52 10^6/uL (4.35-5.85); RED CELL DISTRIBUTION WIDTH 13.3 % (10.0-14.5); WHITE BLOOD COUNT 9.2 10^3/uL (4.3-11.0)
[2017-09-18] MEDS: MAGNESIUM 1 GM/100 ML IVPB 100 ML IV SCH (06:01)
[2017-09-18] MEDS: POTASSIUM CL 10MEQ/50ML IVPB 50 ML IV SCH (06:01)
[2017-09-18] MEDS: KCL 20 MEQ TAB (K-DUR) PO SCH (06:01)
--- NOTE | 2017-09-18 07:50 | Diagnostic Imaging Report ---
Portable semi-upright radiograph of the chest. INDICATION: Dyspnea. FINDINGS: ET tube is in good position. Right IJ line and NG tube are also again seen. There is persistent right basilar infiltrate and atelectasis. There is also a right pleural effusion. The left lung demonstrates minimal basilar infiltrate or atelectasis. The mediastinum and joseph appear unremarkable. IMPRESSION: Predominantly right-sided infiltrates and atelectasis with a small effusion seen with no significant change from the previous exam. There is a possible element of mucus plugging in the right lower lobe resulting in atelectasis. Dictated by: Dictated on workstation # [id number]
[2017-09-18] MEDS: FOLIC ACID 1 MG TAB PO SCH (09:02)
[2017-09-18] MEDS: THIAMINE 100 MG/ML 2 ML (VITAMIN B-1) VIAL IV SCH (09:02)
[2017-09-18] MEDS: ENOXAPARIN 40 MG/0.4 ML (LOVENOX) SYR SC SCH (09:04)
[2017-09-18] MEDS: DILTIAZEM DRIP 125 MG/NS 100 ML TOTAL VOLUME 125 ML IV SCH ×2 (09:05)
[2017-09-18] MEDS ORDERED: POTASSIUM CL 10MEQ/50ML IVPB 50 ML IV NR (11:04)
[2017-09-18] MEDS ORDERED: FUROSEMIDE 40 MG/4 ML INJ (LASIX) IVP NR (11:05)
--- NOTE | 2017-09-18 12:33 | Progress Note-Cardiology ---
Cardiology SOAP Progress Note Subjective: Intubated. Sedated. Unresponsive Objective: I&O/Vital Signs Vital Sign - Last 12Hours 09/18/17 09/18/17 09/18/17 09/18/17 00:54 01:00 02:00 02:00 Pulse 87 76 81 96 Resp 18 16 20 B/P (MAP) 111/67 (82) 122/79 (93) Pulse Ox 100 100 100 O2 Delivery Mechanical Ventilator Mechanical Ventilator O2 Flow Rate 21.00 21.00 FiO2 21 09/18/17 09/18/17 09/18/17 09/18/17 02:16 03:00 04:00 04:00 Temp 97.4 Pulse 83 88 Resp 22 19 B/P (MAP) 96/77 (83) Pulse Ox 100 100 100 O2 Delivery Mechanical Ventilator Mechanical Ventilator O2 Flow Rate 21.00 FiO2 21 09/18/17 09/18/17 09/18/17 09/18/17 04:00 04:30 05:00 06:00 Pulse 83 77 80 81 Resp 17 21 16 14 B/P (MAP) 125/80 (95) 127/74 (91) 130/75 (93) Pulse Ox 100 100 100 100 O2 Delivery Mechanical Ventilator Mechanical Ventilator Mechanical Ventilator O2 Flow Rate 21.00 21.00 21.00 FiO2 21 09/18/17 09/18/17 09/18/17 09/18/17 06:24 07:00 07:00 08:00 Temp 97.6 Pulse 80 84 95 90 Resp 17 26 16 B/P (MAP) 125/81 (96) 129/78 (95) Pulse Ox 100 100 100 O2 Delivery Mechanical Ventilator Mechanical Ventilator O2 Flow Rate 21.00 21.00 FiO2 21 09/18/17 09/18/17 09/18/17 09/18/17 08:00 08:37 09:05 10:00 Pulse 89 91 94 Resp 23 19 B/P (MAP) 123/79 (94) Pulse Ox 100 100 99 O2 Delivery Mechanical Ventilator Mechanical Ventilator O2 Flow Rate 21.00 FiO2 21 21 09/18/17 09/18/17 09/18/17 09/18/17 10:40 11:00 12:00 12:00 Temp 98.0 Pulse 80 78 96 Resp 18 16 16 B/P (MAP) 132/76 (94) 119/66 (83) Pulse Ox 100 100 100 100 O2 Delivery Mechanical Ventilator Mechanical Ventilator Mechanical Ventilator O2 Flow Rate 21.00 21.00 FiO2 21 21 Intake and Output 09/18/17 00:00 Intake Total 1534 ml Output Total 375 ml Balance 1159 ml Weight (Pounds): 170 Weight (Ounces): 0.8 Weight (Calculated Kilograms): 77.371839 Constitutional: other (thin; frail) Respiratory: other (intubated; diminished lower lobes bilat with exp wheezes) Cardiovascular: irregularly irregular, S1 and S2, systolic murmur Gastrointestional: soft, audible bowel sounds, other (thin) Genital/Rectal: other (urniary catheter in place with yosi urine) Extremities: significant edema (bilat 2 (+) pitting edema LE; RUE edema) Neurologic/Psychiatric: other (intubated) Skin: normal color, warm/dry, ulcerations (ulcerations to coccyx, feet and elbows) Results/Procedures: Labs Laboratory Tests 09/17/17 15:35: Lactic Acid Level 0.74 09/17/17 18:09: Glucometer 186H 09/18/17 00:32: Glucometer 136H 09/18/17 05:05: Sodium Level 140, Potassium Level 3.9, Chloride Level 106, Carbon Dioxide Level 22, Anion Gap 12, Blood Urea Nitrogen 20H, Creatinine 0.66, Estimat Glomerular Filtration Rate > 60, BUN/Creatinine Ratio 30, Glucose Level 155H, Calcium Level 8.2L, Phosphorus Level 2.6, Magnesium Level 2.0 09/18/17 05:09: Blood Gas Puncture Site LT RAD, Blood Gas Patient Temperature 97.4, Arterial Blood pH 7.40, Arterial Blood Partial Pressure CO2 35, Arterial Blood Partial Pressure O2 55L, Arterial Blood HCO3 22L, Arterial Blood Total CO2 22.7, Arterial Blood Oxygen Saturation 91L, Arterial Blood Base Excess -2.6L, Deric Test YES-POS, Blood Gas Ventilator Setting YES, Blood Gas Inspired Oxygen 21y 09/18/17 05:40: White Blood Count 9.2, Red Blood Count 3.52L, Hemoglobin 12.6L, Hematocrit 37L, Mean Corpuscular Volume 105H, Mean Corpuscular Hemoglobin 36H, Mean Corpuscular Hemoglobin Concent 34, Red Cell Distribution Width 13.3, Platelet Count 147, Mean Platelet Volume 9.9, Neutrophils (%) (Auto) 94H, Lymphocytes (%) (Auto) 2L , Monocytes (%) (Auto) 4, Eosinophils (%) (Auto) 0, Basophils (%) (Auto) 0, Neutrophils # (Auto) 8.7H, Lymphocytes # (Auto) 0.2L, Monocytes # (Auto) 0.4, Eosinophils # (Auto) 0.0, Basophils # (Auto) 0.0 09/18/17 11:35: Glucometer 126H Microbiology 09/13/17 Blood Culture - Preliminary, Resulted No growth 09/13/17 Gram Stain - Final, Resulted 09/13/17 Sputum Culture - Preliminary, Resulted Streptococcus Pneumoniae Haemophilus Influenza A/P: Assessment: Acute respiratory failure (multifactorial) requiring intubation and mechanical ventilation Pneumonia with sepsis Acute exacerbation of COPD Pulm hypertension, likely related to COPD Acute on chronic diastolic CHF Echo on 09/13/17: LVEF 50-55%, PASP 50 mmHg A-fib with RVR - duration unknown - currently rate controlled Increasing limb and scrotal edema, likely due to third spacing of fluid due to hypoproteinemia Marked hematuria necessitating reduction/holding of enoxaparin Cachectic appearance H/o HTN H/o heavy ETOH use Tobaccoism - stopped approx a month ago H/O opiate abuse in the past H/O bilat leg fractures in the s for which he has had at least 2 surgeries in the past at the [facility] Bilat carotid dz less than 50% bilat per u/s of 09-13-17 Elevated bilirubin and AST level likely in some part d/t chronic ETOH abuse Plan: Management remains complex Diuretics to treat body edema We recommend consideration of TPN Prognosis guarded to poor I spoke with his spouse today and answered CV-related questions EVELIN LORENZO MD FACP FACC CCDS Sep 18, 2017 12:33
[2017-09-18] MEDS: FAMOTIDINE 20MG/2ML IV (PEPCID) IV SCH (21:03)
--- NOTE | 2017-09-18 21:24 | Progress Note (SOAP) ---
Subjective Subjective/Events-last exam Pt not yet ready to extubate. Son and brother, at bedside. Updated on his clinical situation. Discussed that he would not want to be on the vetn intermediate. Review of Systems Date Seen by Provider: Sep 18, 2017 Time Seen by Provider: 09:30 UTO Objective Exam Last Set of Vital Signs Vital Signs Date Time Temp Pulse Resp B/P (MAP) Pulse Ox O2 Delivery O2 Flow Rate FiO2 09/18/17 20:00 100 Mechanical Ventilator 30 09/18/17 19:00 86 09/18/17 18:00 15 123/72 (89) 21.00 09/18/17 16:00 97.4 Capillary Refill : Less Than 3 Seconds I&O Intake and Output 09/18/17 00:00 Intake Total 3222 ml Output Total 820 ml Balance 2402 ml Intake Oral 0 ml IV Total 3032 ml Other 190 ml Output Urine Total 720 ml Gastric Drainage Total 100 ml General: Other (sedated, intubated) Lungs: Other (wheezing, some minimal effort) Heart: Regular Rate, Normal S1, Normal S2, No Murmurs, Gallops, Rubs Abdomen: Normal Bowel Sounds, Soft, No Tenderness Extremities: No Edema Results/Procedures Lab Laboratory Tests 09/18/17 00:32: Glucometer 136H 09/18/17 05:05: Sodium Level 140, Potassium Level 3.9, Chloride Level 106, Carbon Dioxide Level 22, Anion Gap 12, Blood Urea Nitrogen 20H, Creatinine 0.66, Estimat Glomerular Filtration Rate > 60, BUN/Creatinine Ratio 30, Glucose Level 155H, Calcium Level 8.2L, Phosphorus Level 2.6, Magnesium Level 2.0 09/18/17 05:09: Blood Gas Puncture Site LT RAD, Blood Gas Patient Temperature 97.4, Arterial Blood pH 7.40, Arterial Blood Partial Pressure CO2 35, Arterial Blood Partial Pressure O2 55L, Arterial Blood HCO3 22L, Arterial Blood Total CO2 22.7, Arterial Blood Oxygen Saturation 91L, Arterial Blood Base Excess -2.6L, Deric Test YES-POS, Blood Gas Ventilator Setting YES, Blood Gas Inspired Oxygen 21y 09/18/17 05:40: White Blood Count 9.2, Red Blood Count 3.52L, Hemoglobin 12.6L, Hematocrit 37L, Mean Corpuscular Volume 105H, Mean Corpuscular Hemoglobin 36H, Mean Corpuscular Hemoglobin Concent 34, Red Cell Distribution Width 13.3, Platelet Count 147, Mean Platelet Volume 9.9, Neutrophils (%) (Auto) 94H, Lymphocytes (%) (Auto) 2L , Monocytes (%) (Auto) 4, Eosinophils (%) (Auto) 0, Basophils (%) (Auto) 0, Neutrophils # (Auto) 8.7H, Lymphocytes # (Auto) 0.2L, Monocytes # (Auto) 0.4, Eosinophils # (Auto) 0.0, Basophils # (Auto) 0.0 09/18/17 11:35: Glucometer 126H 09/18/17 17:33: Glucometer 127H Microbiology 09/13/17 Blood Culture - Final, Complete No growth 09/13/17 Gram Stain - Final, Complete 09/13/17 Sputum Culture - Final, Complete Streptococcus Pneumoniae Haemophilus Influenza Radiology NAME: SIOMARA MCKOY [facility] REC#: [id number] PT STATUS: ADM IN : 1950 PHYSICIAN: CATALINO BERMUDEZ MD ADMIT DATE: 09/13/17/ICU Signed Date of Exam: 09/13/17 CHEST 1 VIEW, AP/PA ONLY INDICATION: Post intubation EXAMINATION: PA chest obtained at 1238 hrs pm, and compared to same day at 1048 hrs am. There is a new ET tube in place tip overlying the mid to lower trachea. There is an NG tube seen with tip in the proximal portion of the stomach. There is worsening perihilar central venous congestion and infiltrate with worsening bibasilar infiltrate. There is no pneumothorax. There is a minimal pleural fluid on both sides. IMPRESSION: Worsening perihilar central vascular congestion and infiltrate. New ET tube in good position with tip overlying lower trachea. NG tube tip overlies proximal portion of the stomach. Dictated by: Dictated on workstation # [id number] Dict: 09/13/17 1307 Trans: 09/13/17 1341 Interpreted by: AMADO GERMAIN MD Electronically signed by: AMADO GERMAIN MD 09/13/17 1341 Assessment/Plan Assessment/Plan Plan (1) Acute respiratory failure with hypoxia 09/16 - overall prognosis very poor. still requiring ventilatory support. doing sedation weans as we are able. 09/17 - no changes to vent except weaning FiO2. gases stable. 09/18 - have weaned what we can. will have Dr Gleason look at pt tomorrow to see where we need to go with the vent. pulling back on sedation where we can. (2) Atrial fibrillation with RVR 09/16 - remains on cardizem drip with sinus tach 09/17 - being managed by Dr Mitchell, no changes today, rate controlled and in NSR 09/18 - stable, on cardizem, no changes (3) Bilateral pneumonia 09/16 - continue zosyn for now. Positive for Haemophilus and Strep. 09/17 - cont zosyn d/t severity of illness. 09/18 - no changes today. may be withdrawing care tomorrow pending family discussion. (4) Sepsis 09/16 - aggressive IV fluid resuscitation 09/17 - resolved. (5) Acute heart failure 09/16 - Dr Mitchell consulting, no changes today 09/17 - no changes today (6) Smoker 09/16 - contributes to overall poor prognosis (7) Alcoholism 09/16 - no issues d/t sedation on precedex (8) Hyponatremia 09/16 - resolved DISPO: Family did seem to want to consider withdrawing care, stated that Siomara would not want to be in hospital or on vent for a prolonged period of time. Did not want to make a decision due to it being . We will have a family meeting tomorrow at 10am. Nursing notified so that they can make sure any family that wants to be there is available. (1) Acute respiratory failure with hypoxia Status: Acute (2) Atrial fibrillation with RVR Status: Acute (3) Bilateral pneumonia Status: Acute Qualifiers: Qualified Codes: J18.9 - Pneumonia, unspecified organism (4) Sepsis Status: Acute Qualifiers: Qualified Codes: A41.9 - Sepsis, unspecified organism (5) Acute heart failure Status: Acute Qualifiers: Qualified Codes: I50.21 - Acute systolic (congestive) heart failure (6) Smoker Status: Chronic (7) Alcoholism Status: Chronic (8) Hyponatremia Status: Acute Clinical Quality Measures DVT/VTE Risk/Contraindication: Risk Factor Score Per Nursin RFS Level Per Nursing on Admit: 4+=Very High VIDAL BELL MD Sep 18, 2017 9:24 pm
[2017-09-19] VITALS (40 sets, daily range): BP systolic 106–151; BP diastolic 3–102
[2017-09-19] MEDS: methylPREDNISolone 40 MG/ML (Solu-MEDROL) VIAL IV SCH ×3 (00:29→12:32)
[2017-09-19] MEDS: CATHETER FLUSH 10 ML SYR IV SCH ×3 (00:29→14:19)
[2017-09-19] MEDS: DEXMEDETOMIDINE INJECTION 400 MCG in NS (IVPB) 100 ML IV SCH (01:05)
[2017-09-19] MEDS: PIPERACILLIN/TAZOBACTAM 4.5 GM/NS 100 ML IVPB IV SCH ×4 (02:06→09:01)
[2017-09-19] MEDS: RT-ALBUTEROL/IPRATROPIUM 3 ML (DUONEB) VIAL INH SCH ×4 (02:23→15:12)
[2017-09-19 04:11] LABS: ABG BASE EXCESS 0.5 MMOL/L (-2.5-2.5); ABG HCO3 24 MMOL/L (23-27); ABG OXYGEN SATURATION 98 % (94-100); ABG PCO2 37 MMHG (35-45); ABG PH 7.44 (7.37-7.43); ABG PO2 83 MMHG (79-93); ABG TCO2 25.3 MMOL/L (21.0-31.0)
[2017-09-19 04:14] LABS: ALLENS TEST YES-POS
[2017-09-19 04:24] LABS: BASOPHILS % (AUTO) 0 % (0-10); EOSINOPHILS % (AUTO) 0 % (0-10); LYMPHOCYTES # (AUTO) 0.2 X 10^3 (1.0-4.0); LYMPHOCYTES % (AUTO) 2 % (12-44); MEAN CORPUSCULAR HEMOGLOBIN 36 PG (25-34); MEAN CORPUSCULAR HGB CONC 35 G/DL (32-36); MEAN CORPUSCULAR VOLUME 104 FL (80-99); MEAN PLATELET VOLUME 10.1 FL (7.4-10.4); MONOCYTES # (AUTO) 0.3 X 10^3 (0.0-1.0); MONOCYTES % (AUTO) 3 % (0-12); NEUTROPHILS # (AUTO) 9.5 X 10^3 (1.8-7.8); NEUTROPHILS % (AUTO) 95 % (42-75); PLATELET COUNT 139 10^3/uL (130-400); RED BLOOD COUNT 3.52 10^6/uL (4.35-5.85); RED CELL DISTRIBUTION WIDTH 13.1 % (10.0-14.5)
[2017-09-19] MEDS: NS IV 1000 ML 1,000 ML IV SCH (04:47)
[2017-09-19 05:26] LABS: ANION GAP 17 MMOL/L (5-14); BLOOD UREA NITROGEN 18 MG/DL (7-18); BUN/CREATININE RATIO 26; CALCIUM 7.6 MG/DL (8.5-10.1); CARBON DIOXIDE 20 MMOL/L (21-32); CHLORIDE 106 MMOL/L (98-107); CREATININE SERUM 0.68 MG/DL (0.60-1.30); GFR ESTIMATED > 60; GLUCOSE 150 MG/DL (70-105); MAGNESIUM 1.5 MG/DL (1.8-2.4); PHOSPHORUS 2.8 MG/DL (2.3-4.7); POTASSIUM 2.9 MMOL/L (3.6-5.0); SODIUM 143 MMOL/L (135-145)
[2017-09-19] MEDS: DILTIAZEM DRIP 125 MG/NS 100 ML TOTAL VOLUME 125 ML IV SCH ×2 (05:42)
[2017-09-19] MEDS: POTASSIUM CL 10MEQ/50ML IVPB 50 ML IV SCH ×9 (06:00→10:36)
[2017-09-19] MEDS: MAGNESIUM 1 GM/100 ML IVPB 100 ML IV SCH ×3 (06:00→07:36)
[2017-09-19] MEDS: KCL 20 MEQ TAB (K-DUR) PO SCH (06:00)
--- NOTE | 2017-09-19 06:22 | Pulmonary Progress Note ---
Subjective Time Seen by Provider: 06:38 Subjective/Events-last exam PT has not been able to wean from vent. Exam Exam Vital Signs Date Time Temp Pulse Resp B/P (MAP) Pulse Ox O2 Delivery O2 Flow Rate FiO2 09/19/17 06:00 94 15 138/91 (107) 100 Mechanical Ventilator 30.00 09/19/17 05:42 93 13 136/81 100 Mechanical Ventilator 30.00 09/19/17 05:00 89 13 133/79 (97) 100 Mechanical Ventilator 30.00 09/19/17 04:22 90 17 100 30 09/19/17 04:00 99.0 Mechanical Ventilator 30.00 09/19/17 04:00 100 17 128/84 (99) 100 Mechanical Ventilator 30.00 09/19/17 04:00 100 Mechanical Ventilator 30 09/19/17 04:00 113 22 100 40 09/19/17 03:00 99 16 131/96 (108) 100 Mechanical Ventilator 30.00 09/19/17 02:23 85 16 100 30 09/19/17 02:00 98 16 134/82 (99) 100 Mechanical Ventilator 30.00 09/19/17 01:00 103 17 123/73 (90) 100 Mechanical Ventilator 30.00 09/19/17 01:00 103 09/19/17 00:00 100 Mechanical Ventilator 30 09/19/17 00:00 110 16 141/78 (99) 100 Mechanical Ventilator 30.00 09/18/17 23:00 104 16 141/86 (104) 100 Mechanical Ventilator 30.00 09/18/17 22:24 98 16 100 30 09/18/17 22:00 107 15 140/81 (100) 100 Mechanical Ventilator 30.00 09/18/17 21:00 106 13 149/70 (96) 100 Mechanical Ventilator 30.00 09/18/17 20:00 93 14 142/79 (100) 100 Mechanical Ventilator 30.00 09/18/17 20:00 100 Mechanical Ventilator 30 09/18/17 19:00 98.0 92 17 135/85 (102) 100 Mechanical Ventilator 30.00 09/18/17 19:00 86 09/18/17 18:56 97 17 100 21 09/18/17 18:00 86 15 123/72 (89) 100 Mechanical Ventilator 21.00 09/18/17 17:00 93 13 132/75 (94) 100 Mechanical Ventilator 21.00 12/25/17 16:00 105 19 100 21 09/18/17 16:00 100 Mechanical Ventilator 21 09/18/17 16:00 97.4 99 22 116/64 (81) 100 Mechanical Ventilator 21.00 09/18/17 15:00 100 16 122/82 (95) 100 Mechanical Ventilator 21.00 09/18/17 14:43 99 18 100 21 09/18/17 14:00 92 15 134/75 (94) 100 Mechanical Ventilator 21.00 09/18/17 13:00 99 09/18/17 13:00 94 14 128/71 (90) 100 Mechanical Ventilator 21.00 09/18/17 12:49 90 16 100 21 09/18/17 12:00 98.0 96 16 119/66 (83) 100 Mechanical Ventilator 21.00 09/18/17 12:00 100 Mechanical Ventilator 21 09/18/17 11:00 78 16 132/76 (94) 100 Mechanical Ventilator 21.00 09/18/17 10:40 80 18 100 21 09/18/17 10:00 94 19 123/79 (94) 99 Mechanical Ventilator 21.00 09/18/17 09:05 91 09/18/17 09:00 87 16 129/81 (97) 100 Mechanical Ventilator 21.00 09/18/17 08:37 89 23 100 21 09/18/17 08:00 100 Mechanical Ventilator 21 09/18/17 08:00 97.6 90 16 129/78 (95) 100 Mechanical Ventilator 21.00 09/18/17 07:00 95 26 125/81 (96) 100 Mechanical Ventilator 21.00 09/18/17 07:00 84 09/18/17 06:24 80 17 100 21 I & O 09/19/17 07:00 Intake Total 1923 ml Output Total 3000 ml Balance -1077 ml General Appearance: WD/WN, Anxious, Chronically ill, Moderate Distress, Thin HEENT: PERRL/EOMI, Normal ENT Inspection, Pharynx Normal Neck: Full Range of Motion, Normal Inspection, Non Tender, Supple, Carotid Bruit Respiratory: Chest Non Tender, Accessory Muscle Use, Crackles, Decreased Breath Sounds, Rales, Respiratory Distress, Wheezing Cardiovascular: No Edema, No Gallop, No JVD, No Murmur, Normal Peripheral Pulses, Irregularly Irregular, Tachycardia Capillary Refill: Less Than 3 Seconds Extremity: Normal Capillary Refill, Normal Inspection, Normal Range of Motion, Non Tender, No Calf Tenderness, No Pedal Edema Neurologic/Psychiatric: Alert, Oriented x3, No Motor/Sensory Deficits, Depressed Affect Skin: Normal Color, Warm/Dry Lymphatic: No Adenopathy Results Lab Laboratory Tests 09/18/17 05:05 09/18/17 05:40 09/19/17 03:52 Assessment/Plan Assessment/Plan Acute respiratory failure requiring mechanical ventilation -Pt has been difficult to wean. He does not qualify for [facility] -will attempt weaning again today -Pt is requiring only minimal oxygen. -D/C ativan -Precedex Pneumonia with sepsis -Continue Abx COPDAE -Continue solumedrol Cardiomyopathy -cardiology consulted ETOH dependance -Alcohol withdrawal Tobacco dependance Family is considering comfort care. After extubation I recommend to make patient a full DNR. If patient is not tolerating extubation I strongly recommend comfort care only. Pt is a good candidate for hospice care if he is not made comfort care only. 233 Clinical Quality Measures DVT/VTE Risk/Contraindication: Risk Factor Score Per Nursin RFS Level Per Nursing on Admit: 4+=Very High TOPHER LEAL DO Sep 19, 2017 06:22
[2017-09-19] MEDS ORDERED: POTASSIUM CL 10MEQ/50ML IVPB 50 ML IV SCH (06:30)
[2017-09-19] MEDS: inSUlin (REGULAR) HUMAN 1 UNIT/0.01 ML (CHARGE PER UNIT) SC SCH ×3 (07:35→12:25)
[2017-09-19 07:51] LABS: ABG BASE EXCESS 0.3 MMOL/L (-2.5-2.5); ABG HCO3 24 MMOL/L (23-27); ABG OXYGEN SATURATION 79 % (94-100); ABG PCO2 37 MMHG (35-45); ABG PH 7.43 (7.37-7.43); ABG PO2 46 MMHG (79-93); ABG TCO2 25.2 MMOL/L (21.0-31.0)
[2017-09-19 07:54] LABS: ALLENS TEST YES-POS; PATIENT TEMP 99.2
[2017-09-19] MEDS: FOLIC ACID 1 MG TAB PO SCH (08:56)
[2017-09-19] MEDS: THIAMINE 100 MG/ML 2 ML (VITAMIN B-1) VIAL IV SCH (08:58)
--- NOTE | 2017-09-19 09:34 | Diagnostic Imaging Report ---
INDICATION: ICU care management. Respiratory failure, intubation, dyspnea.. TECHNIQUE: Single-view chest 4:41 AM. CORRELATION STUDY: 09/18/2017. FINDINGS: Endotracheal tube is again demonstrated and is fairly low in its position. The dalia is not well visualized with tip directed likely just above the level of the right main bronchus. Gastric tube passes below the left hemidiaphragm. Right IJ central line unchanged. Combination of effusion along with infiltrate of the right lung base persisting perhaps very slightly improved. Similar but lesser findings at the left lung base. IMPRESSION: 1. Support lines and tubes again demonstrated. ET tube is slightly low in position likely at the level of the dalia, approaching the right mainstem bronchus. 2. Combination of infiltrate along with effusion of the bilateral lung bases right greater than left perhaps minimally improved. Dictated by: Dictated on workstation # [id number]
[2017-09-19] MEDS ORDERED: FUROSEMIDE 40 MG/4 ML INJ (LASIX) IVP NR (10:30)
--- NOTE | 2017-09-19 10:44 | Progress Note-Cardiology ---
Cardiology SOAP Progress Note Subjective: He is currently extubated. Confused (wonders where he is). Not able to provide much history. Appears moderately short of breath Objective: I&O/Vital Signs Vital Sign - Last 12Hours 09/18/17 09/19/17 09/19/17 09/19/17 23:00 00:00 00:00 01:00 Pulse 104 110 103 Resp 16 16 B/P (MAP) 141/86 (104) 141/78 (99) Pulse Ox 100 100 100 O2 Delivery Mechanical Ventilator Mechanical Ventilator Mechanical Ventilator O2 Flow Rate 30.00 30.00 FiO2 30 09/19/17 09/19/17 09/19/17 09/19/17 01:00 02:00 02:23 03:00 Pulse 103 98 85 99 Resp 17 16 16 16 B/P (MAP) 123/73 (90) 134/82 (99) 131/96 (108) Pulse Ox 100 100 100 100 O2 Delivery Mechanical Ventilator Mechanical Ventilator Mechanical Ventilator O2 Flow Rate 30.00 30.00 30.00 FiO2 30 09/19/17 09/19/17 09/19/17 09/19/17 04:00 04:00 04:00 04:00 Temp 99.0 Pulse 113 100 Resp 22 17 B/P (MAP) 128/84 (99) Pulse Ox 100 100 100 O2 Delivery Mechanical Ventilator Mechanical Ventilator Mechanical Ventilator O2 Flow Rate 30.00 30.00 FiO2 40 30 09/19/17 09/19/17 09/19/17 09/19/17 04:22 05:00 05:42 06:00 Pulse 90 89 93 94 Resp 17 13 13 15 B/P (MAP) 133/79 (97) 136/81 138/91 (107) Pulse Ox 100 100 100 100 O2 Delivery Mechanical Ventilator Mechanical Ventilator Mechanical Ventilator O2 Flow Rate 30.00 30.00 30.00 FiO2 30 09/19/17 09/19/17 09/19/17 09/19/17 06:54 07:00 07:00 07:45 Temp 99.2 Pulse 91 109 89 Resp 22 20 B/P (MAP) 128/72 (90) Pulse Ox 100 100 O2 Delivery Mechanical Ventilator Mechanical Ventilator O2 Flow Rate 21.00 21.00 FiO2 21 09/19/17 09/19/17 09/19/17 09/19/17 08:00 08:00 08:30 09:00 Pulse 112 112 Resp 23 19 B/P (MAP) 106/87 (93) 130/84 (99) Pulse Ox 100 97 100 100 O2 Delivery Mechanical Ventilator Mechanical Ventilator Nasal Cannula Mechanical Ventilator O2 Flow Rate 21.00 2.00 2.00 FiO2 21 09/19/17 10:00 Pulse 104 Resp 26 B/P (MAP) 138/76 (96) Pulse Ox 100 O2 Delivery Mechanical Ventilator O2 Flow Rate 2.00 Intake and Output 09/19/17 00:00 Intake Total 414 ml Output Total 2300 ml Balance -1886 ml Weight (Pounds): 172 Weight (Ounces): 4.8 Weight (Calculated Kilograms): 78.858564 Constitutional: other (confused, off vent beginning the amof 09/19/17) Respiratory: other (diminished lower lobes bilat with exp wheezes) Cardiovascular: irregularly irregular, S1 and S2, systolic murmur Gastrointestional: soft, audible bowel sounds, other (thin) Genital/Rectal: other (urniary catheter in place; scrotal edema) Extremities: significant edema (bilat 2 (+) pitting edema LE; RUE edema) Neurologic/Psychiatric: other (confused; seems to be able to move all limbs) Skin: normal color, warm/dry, ulcerations (ulcerations to coccyx, feet and elbows) Results/Procedures: Labs Laboratory Tests 09/18/17 11:35: Glucometer 126H 09/18/17 17:33: Glucometer 127H 09/19/17 00:26: Glucometer 129H 09/19/17 03:52: White Blood Count 10.0, Red Blood Count 3.52L, Hemoglobin 12.7L, Hematocrit 37L , Mean Corpuscular Volume 104H, Mean Corpuscular Hemoglobin 36H, Mean Corpuscular Hemoglobin Concent 35, Red Cell Distribution Width 13.1, Platelet Count 139, Mean Platelet Volume 10.1, Neutrophils (%) (Auto) 95H, Lymphocytes (% ) (Auto) 2L, Monocytes (%) (Auto) 3, Eosinophils (%) (Auto) 0, Basophils (%) ( Auto) 0, Neutrophils # (Auto) 9.5H, Lymphocytes # (Auto) 0.2L, Monocytes # (Auto ) 0.3, Eosinophils # (Auto) 0.0, Basophils # (Auto) 0.0, Sodium Level 143, Potassium Level 2.9L, Chloride Level 106, Carbon Dioxide Level 20L, Anion Gap 17H, Blood Urea Nitrogen 18, Creatinine 0.68, Estimat Glomerular Filtration Rate > 60, BUN/Creatinine Ratio 26, Glucose Level 150H, Calcium Level 7.6L, Phosphorus Level 2.8, Magnesium Level 1.5L, B-Type Natriuretic Peptide 746.4H 09/19/17 04:05: Blood Gas Puncture Site L RAD, Blood Gas Patient Temperature 99.0, Arterial Blood pH 7.44H, Arterial Blood Partial Pressure CO2 37, Arterial Blood Partial Pressure O2 83, Arterial Blood HCO3 24, Arterial Blood Total CO2 25.3, Arterial Blood Oxygen Saturation 98, Arterial Blood Base Excess 0.5, Deric Test YES-POS, Blood Gas Ventilator Setting YES, Blood Gas Inspired Oxygen 30% 09/19/17 06:51: Glucometer 176H 09/19/17 07:44: Blood Gas Puncture Site R RAD, Blood Gas Patient Temperature 99.2, Arterial Blood pH 7.43, Arterial Blood Partial Pressure CO2 37, Arterial Blood Partial Pressure O2 46L, Arterial Blood HCO3 24, Arterial Blood Total CO2 25.2, Arterial Blood Oxygen Saturation 79L, Arterial Blood Base Excess 0.3, Deric Test YES-POS, Blood Gas Ventilator Setting YES, Blood Gas Inspired Oxygen 21% Microbiology 09/13/17 Blood Culture - Final, Complete No growth 09/13/17 Gram Stain - Final, Complete 09/13/17 Sputum Culture - Final, Complete Streptococcus Pneumoniae Haemophilus Influenza A/P: Assessment: Acute respiratory failure (multifactorial) requiring intubation and mechanical ventilation, extubated on 09/19/17 Pneumonia with sepsis Acute exacerbation of COPD Pulm hypertension, likely related to COPD Acute on chronic diastolic CHF Echo on 09/13/17: LVEF 50-55%, PASP 50 mmHg A-fib with RVR - duration unknown - currently rate controlled Increasing limb and scrotal edema, likely due to third spacing of fluid due to hypoproteinemia Hypokalemia Marked hematuria necessitating reduction/holding of enoxaparin Cachectic appearance H/o HTN H/o heavy ETOH use Tobaccoism - stopped approx a month ago H/o opiate abuse in the past H/o bilat leg fractures in the for which he has had at least 2 surgeries in the past at the [facility] Bilat carotid dz less than 50% bilat per u/s of 12--17 Elevated bilirubin and AST level likely in some part d/t chronic ETOH abuse Plan: Management remains complex Diuretics to treat body edema/volume overload/ac on ch diastolic CHF Replenish K We recommend consideration of TPN Prognosis guarded to poor I discussed his case with one of his sons I also discussed his case with EVELIN Greer MD FACP FAC CCDS Sep 19, 2017 10:44
--- NOTE | 2017-09-19 11:26 | Discharge Summary ---
Diagnosis/Chief Complaint Date of Admission Sep 13, 2017 at 12:30 pm Date of Discharge Sep 19, 2017 Admission Diagnosis Admission Diagnosis (1) Acute respiratory failure with hypoxia Status: Acute Assessment & Plan: Intubation (2) Atrial fibrillation with RVR Status: Acute Assessment & Plan: IV Cardizem (3) Bilateral pneumonia Status: Acute Qualifiers: Qualified Codes: J18.9 - Pneumonia, unspecified organism (4) Sepsis Status: Acute Qualifiers: Qualified Codes: A41.9 - Sepsis, unspecified organism (5) Acute heart failure Status: Acute Qualifiers: Qualified Codes: I50.21 - Acute systolic (congestive) heart failure (6) Smoker Status: Chronic (7) Alcoholism Status: Chronic Assessment & Plan: Withdrawal management Discharge Diagnosis (1) Acute respiratory failure with hypoxia 09/16 - overall prognosis very poor. still requiring ventilatory support. doing sedation weans as we are able. 09/17 - no changes to vent except weaning FiO2. gases stable. 09/18 - have weaned what we can. will have Dr Gleason look at pt tomorrow to see where we need to go with the vent. pulling back on sedation where we can. (2) Atrial fibrillation with RVR 09/16 - remains on cardizem drip with sinus tach 09/17 - being managed by Dr Mitchell, no changes today, rate controlled and in NSR 09/18 - stable, on cardizem, no changes (3) Bilateral pneumonia 09/16 - continue zosyn for now. Positive for Haemophilus and Strep. 09/17 - cont zosyn d/t severity of illness. 09/18 - no changes today. may be withdrawing care tomorrow pending family discussion. (4) Sepsis 09/16 - aggressive IV fluid resuscitation 09/17 - resolved. (5) Acute heart failure 09/16 - Dr Mitchell consulting, no changes today 09/17 - no changes today (6) Smoker 09/16 - contributes to overall poor prognosis (7) Alcoholism 09/16 - no issues d/t sedation on precedex (8) Hyponatremia 09/16 - resolved DISPO: Family did seem to want to consider withdrawing care, stated that Siomara would not want to be in hospital or on vent for a prolonged period of time. Did not want to make a decision due to it being . We will have a family meeting tomorrow at 10am. Nursing notified so that they can make sure any family that wants to be there is available. DISCHARGE: Patient was able to be extubated today. Still very poor prognosis. Met with family (20+ people in waiting room) today. Patient's partner of 20 years and 5 kids were primary decision makers. They decided to take patient home on hospice. Ellis that Siomara would not want to be in hospital for prolonged period and would not want to go to rehab or a facility. They did not want further aggressive measures. Would like to call [facility] hosp[facility]. If they are not available, then go with [facility]. They already have a hospital bed. Family states they will be able to care for him at home if they have adequate support. We will make arrangements and discharge to home once hospice has help prepare the home for his arrival. Chief Complaint/HPI Chief Complaint/HPI HPI: This is a 67-year-old white male clinic patient of [facility] the claims he has no medical problems with takes Lasix at home and an inhaler that has a 30 drinks day history of alcohol use most recently cut down to 10 a day but the girlfriend states it's only 6 a day and continues to smoke who presented to the emergency room with shortness of breath found to have new onset congestive heart failure with elevated BNP and pulmonary congestion on chest x-ray atrial fibrillation with rapid ventricular response in addition to sepsis that required intubation the ER due to the severity of his respiratory status. I am unable to assess any details whatsoever from the patient considering his tachypnea and respiratory distress. Discharge Summary-Simple/Stand Consultations Dr Stephen Gleason Discharge Physical Examination Allergies: Coded Allergies: No Known Drug Allergies (Unverified , 09/13/17) Vitals & I&Os Vital Sign - Last 12Hours Date Time Temp Pulse Resp B/P (MAP) Pulse Ox O2 Delivery O2 Flow Rate FiO2 09/19/17 10:32 100 Nasal Cannula 2.00 09/19/17 10:00 104 26 138/76 (96) 09/19/17 08:00 21 09/19/17 07:45 99.2 Intake and Output 09/19/17 00:00 Intake Total 414 ml Output Total 2300 ml Balance -1886 ml General Appearance: Other (pt extubated, confused and calling out) Respiratory: Other (wheezing bilaterally, good effort) Cardiovascular: Regular Rate, Normal S1, Normal S2, No Murmurs, Gallops, Rubs Abdominal: Normal Bowel Sounds, Soft, No Tenderness Hospital Course See final discharge diagnosis. Labs Laboratory Tests Test 09/16/17 20:53 09/17/17 04:40 09/17/17 11:59 09/17/17 15:35 Range/Units Glucometer 144 H 118 H 70-110 MG/DL White Blood Count 9.8 4.3-11.0 10^3/uL Red Blood Count 3.53 L 4.35-5.85 10^6/uL Hemoglobin 12.7 L 13.3-17.7 G/DL Hematocrit 36 L 40-54 % Mean Corpuscular Volume 103 H 80-99 FL Mean Corpuscular Hemoglobin 36 H 25-34 PG Mean Corpuscular Hemoglobin Concent 35 32-36 G/DL Red Cell Distribution Width 12.9 10.0-14.5 % Platelet Count 170 130-400 10^3/uL Mean Platelet Volume 10.2 7.4-10.4 FL Neutrophils (%) (Auto) 94 H 42-75 % Lymphocytes (%) (Auto) 2 L 12-44 % Monocytes (%) (Auto) 4 0-12 % Eosinophils (%) (Auto) 0 0-10 % Basophils (%) (Auto) 0 0-10 % Neutrophils # (Auto) 9.2 H 1.8-7.8 X 10^3 Lymphocytes # (Auto) 0.2 L 1.0-4.0 X 10^3 Monocytes # (Auto) 0.4 0.0-1.0 X 10^3 Eosinophils # (Auto) 0.0 0.0-0.3 10^3/uL Basophils # (Auto) 0.0 0.0-0.1 10^3/uL Sodium Level 137 135-145 MMOL/L Potassium Level 3.3 L 3.6-5.0 MMOL/L Chloride Level 103 98-107 MMOL/L Carbon Dioxide Level 21 21-32 MMOL/L Anion Gap 13 5-14 MMOL/L Blood Urea Nitrogen 19 H 7-18 MG/DL Creatinine 0.62 0.60-1.30 MG/DL Estimat Glomerular Filtration Rate > 60 BUN/Creatinine Ratio 31 Glucose Level 142 H 70-105 MG/DL Calcium Level 7.8 L 8.5-10.1 MG/DL Phosphorus Level 2.6 2.3-4.7 MG/DL Magnesium Level 1.9 1.8-2.4 MG/DL Lactic Acid Level 0.74 0.50-2.00 MMOL/L Test 09/17/17 18:09 09/18/17 00:32 09/18/17 05:05 09/18/17 05:09 Range/Units Glucometer 186 H 136 H 70-110 MG/DL Sodium Level 140 135-145 MMOL/L Potassium Level 3.9 3.6-5.0 MMOL/L Chloride Level 106 98-107 MMOL/L Carbon Dioxide Level 22 21-32 MMOL/L Anion Gap 12 5-14 MMOL/L Blood Urea Nitrogen 20 H 7-18 MG/DL Creatinine 0.66 0.60-1.30 MG/DL Estimat Glomerular Filtration Rate > 60 BUN/Creatinine Ratio 30 Glucose Level 155 H 70-105 MG/DL Calcium Level 8.2 L 8.5-10.1 MG/DL Phosphorus Level 2.6 2.3-4.7 MG/DL Magnesium Level 2.0 1.8-2.4 MG/DL Blood Gas Puncture Site LT RAD Blood Gas Patient Temperature 97.4 Arterial Blood pH 7.40 7.37-7.43 Arterial Blood Partial Pressure CO2 35 35-45 MMHG Arterial Blood Partial Pressure O2 55 L 79-93 MMHG Arterial Blood HCO3 22 L 23-27 MMOL/L Arterial Blood Total CO2 22.7 21.0-31.0 MMOL/L Arterial Blood Oxygen Saturation 91 L 94-100 % Arterial Blood Base Excess -2.6 L -2.5-2.5 MMOL/L Deric Test YES-POS Blood Gas Ventilator Setting YES Blood Gas Inspired Oxygen 21y Test 09/18/17 05:40 09/18/17 11:35 09/18/17 17:33 09/19/17 00:26 Range/Units White Blood Count 9.2 4.3-11.0 10^3/uL Red Blood Count 3.52 L 4.35-5.85 10^6/uL Hemoglobin 12.6 L 13.3-17.7 G/DL Hematocrit 37 L 40-54 % Mean Corpuscular Volume 105 H 80-99 FL Mean Corpuscular Hemoglobin 36 H 25-34 PG Mean Corpuscular Hemoglobin Concent 34 32-36 G/DL Red Cell Distribution Width 13.3 10.0-14.5 % Platelet Count 147 130-400 10^3/uL Mean Platelet Volume 9.9 7.4-10.4 FL Neutrophils (%) (Auto) 94 H 42-75 % Lymphocytes (%) (Auto) 2 L 12-44 % Monocytes (%) (Auto) 4 0-12 % Eosinophils (%) (Auto) 0 0-10 % Basophils (%) (Auto) 0 0-10 % Neutrophils # (Auto) 8.7 H 1.8-7.8 X 10^3 Lymphocytes # (Auto) 0.2 L 1.0-4.0 X 10^3 Monocytes # (Auto) 0.4 0.0-1.0 X 10^3 Eosinophils # (Auto) 0.0 0.0-0.3 10^3/uL Basophils # (Auto) 0.0 0.0-0.1 10^3/uL Glucometer 126 H 127 H 129 H 70-110 MG/DL Test 09/19/17 03:52 09/19/17 04:05 09/19/17 06:51 09/19/17 07:44 Range/Units White Blood Count 10.0 4.3-11.0 10^3/uL Red Blood Count 3.52 L 4.35-5.85 10^6/uL Hemoglobin 12.7 L 13.3-17.7 G/DL Hematocrit 37 L 40-54 % Mean Corpuscular Volume 104 H 80-99 FL Mean Corpuscular Hemoglobin 36 H 25-34 PG Mean Corpuscular Hemoglobin Concent 35 32-36 G/DL Red Cell Distribution Width 13.1 10.0-14.5 % Platelet Count 139 130-400 10^3/uL Mean Platelet Volume 10.1 7.4-10.4 FL Neutrophils (%) (Auto) 95 H 42-75 % Lymphocytes (%) (Auto) 2 L 12-44 % Monocytes (%) (Auto) 3 0-12 % Eosinophils (%) (Auto) 0 0-10 % Basophils (%) (Auto) 0 0-10 % Neutrophils # (Auto) 9.5 H 1.8-7.8 X 10^3 Lymphocytes # (Auto) 0.2 L 1.0-4.0 X 10^3 Monocytes # (Auto) 0.3 0.0-1.0 X 10^3 Eosinophils # (Auto) 0.0 0.0-0.3 10^3/uL Basophils # (Auto) 0.0 0.0-0.1 10^3/uL Sodium Level 143 135-145 MMOL/L Potassium Level 2.9 L 3.6-5.0 MMOL/L Chloride Level 106 98-107 MMOL/L Carbon Dioxide Level 20 L 21-32 MMOL/L Anion Gap 17 H 5-14 MMOL/L Blood Urea Nitrogen 18 7-18 MG/DL Creatinine 0.68 0.60-1.30 MG/DL Estimat Glomerular Filtration Rate > 60 BUN/Creatinine Ratio 26 Glucose Level 150 H 70-105 MG/DL Calcium Level 7.6 L 8.5-10.1 MG/DL Phosphorus Level 2.8 2.3-4.7 MG/DL Magnesium Level 1.5 L 1.8-2.4 MG/DL B-Type Natriuretic Peptide 746.4 H <100.0 PG/ML Blood Gas Puncture Site L RAD R RAD Blood Gas Patient Temperature 99.0 99.2 Arterial Blood pH 7.44 H 7.43 7.37-7.43 Arterial Blood Partial Pressure CO2 37 37 35-45 MMHG Arterial Blood Partial Pressure O2 83 46 L 79-93 MMHG Arterial Blood HCO3 24 24 23-27 MMOL/L Arterial Blood Total CO2 25.3 25.2 21.0-31.0 MMOL/L Arterial Blood Oxygen Saturation 98 79 L 94-100 % Arterial Blood Base Excess 0.5 0.3 -2.5-2.5 MMOL/L Deric Test YES-POS YES-POS Blood Gas Ventilator Setting YES YES Blood Gas Inspired Oxygen 30% 21% Glucometer 176 H 70-110 MG/DL Radiology Reviewed NAME: SIOMARA [facility] REC#: [id number] PT STATUS: ADM IN : 1950 PHYSICIAN: CATALINO BERMUDEZ MD ADMIT DATE: 09/13/17/ICU Signed Date of Exam: 09/13/17 CHEST 1 VIEW, AP/PA ONLY INDICATION: Post intubation EXAMINATION: PA chest obtained at 1238 hrs pm, and compared to same day at 1048 hrs am. There is a new ET tube in place tip overlying the mid to lower trachea. There is an NG tube seen with tip in the proximal portion of the stomach. There is worsening perihilar central venous congestion and infiltrate with worsening bibasilar infiltrate. There is no pneumothorax. There is a minimal pleural fluid on both sides. IMPRESSION: Worsening perihilar central vascular congestion and infiltrate. New ET tube in good position with tip overlying lower trachea. NG tube tip overlies proximal portion of the stomach. Dictated by: Dictated on workstation # [id number] Dict: 09/13/17 1307 Trans: 09/13/17 1341 Interpreted by: AMADO GERMAIN MD Electronically signed by: AMADO GERMAIN MD 09/13/17 1341 Discharge Instructions to patient/family Please see electronic discharge instructions given to patient. Discharge Medications Reviewed and agree with Discharge Medication list on patient's Discharge Instruction sheet Clinical Quality Measures DVT/VTE Risk/Contraindication: Risk Factor Score Per Nursin RFS Level Per Nursing on Admit: 4+=Very High Copy Copies To 1: VIDAL GARZA APRN, MD Sep 19, 2017 11:26 am
--- NOTE | 2017-09-19 11:37 | Discharge Instructions ---
Discharge [facility] Discharge Medications New, Converted or Re-Newed RX: Other Discontinued Medications: Albuterol Sulfate (Albuterol Sulfate) 2.5 Mg/3 Ml Vial.neb 2.5 MG NEB Q6H PRN for SHORTNESS OF BREATH, EA Albuterol Sulfate (Proair Hfa) 1 Puff Puff 2 PUFF IH Q6H PRN for SHORTNESS OF BREATH, PUFF 1 PUFF = 90 MCG Albuterol/Ipratropium (Combivent Respimat Inhal Kaplan) 4 Gm Aero 1 PUFF IH QID, INH Atenolol (Atenolol) 50 Mg Tablet 25 MG PO DAILY, TAB TAKES 1/2 (50MG) TABLET Furosemide (Furosemide) 20 Mg Tablet 20 MG PO DAILY, TAB Tiotropium [place] (Spiriva) 1 Inh Aerp 1 CAP INH DAILY, EA Patient Instructions Goal/Follow Up Appt: PLEASE CALL HOSPICE WITH ANY QUESTIONS. YOU MAY ALSO CALL THE CLINIC AT [phone]. Patient Instructions: HOSPICE WILL MAKE ARRANGEMENTS FOR SIOMARA AT HOME. Return to The Hospital For: PLEASE CALL THE ON-CALL HOSPICE NURSE WITH ANY QUESTIONS. YOU MAY ALSO CALL THE CLINIC DURING REGULAR BUSINESS HOURS. Activity & Diet Discharge Diet: No Restrictions Activity as Tolerated: Yes Orders-Post D/C & Referrals Pneu Vac Indicated: Yes Copy Copies To 1: VIDAL GARZA APRN, MD Sep 19, 2017 11:36 am
[2017-09-19] MEDS ORDERED: morphine INJ 4 MG/ML 1 ML (VIAL/SYRINGE) ONE (12:27)
[2017-09-19] MEDS ORDERED: LORazepam INJ 2 MG/ML (ATIVAN) VIAL IVP PRN (12:30)
[2017-09-19] MEDS: morphine INJ 4 MG/ML 1 ML (VIAL/SYRINGE) IVP PRN ×2 (12:32→15:54)
[2017-09-19] MEDS: ENOXAPARIN 40 MG/0.4 ML (LOVENOX) SYR SC SCH (12:35)
--- NOTE | 2017-09-20 20:15 | Physician Query Clarification ---
PQ-Conflicting Diagnosis Admission/Discharge Admission Date: Sep 13, 2017 at 12:30 Discharge Date: Sep 19, 2017 at 16:02 The medical record reflects the following clinical scenario: History/Risk Factors: CHF Clinical Findings: edema, volume overload Treatment: diuretics Question: Do you agree with the impression of the [acute on chronic diastolic CHF] per [ Dr Mitchell]. Please document a response below. Your notes state acute systolic CHF. Dr Love consult and notes state acute on chronic diastolic CHF. Please clarify. PHYSICIAN RESPONSE Do you agree w/Consulting Dx?: Yes Explanation of clincal finding my apologies, please correct to diastolic. In responding to this query, please exercise your independent professional judgment. The purpose of this communication is to more accurately reflect the complexity of your patients condition. The fact that a question is asked does not imply that any particular answer is desired or expected. Thank you for your timely response to this clarification. Requestors name: [ ] Phone # [ ] THIS PHYSICIAN QUERY FORM IS A PERMANENT PART OF THE MEDICAL RECORD HEATH LAGOS Sep 20, 2017 20:15 VIDAL BELL MD Sep 21, 2017 20:14
== END 2017-09-19 16:02 | disposition hospice, home (50) | DRG 870 ==
LOC: ER 10:03 → ICU 12:30
PROVIDERS: ADMIT Internal Medicine; ATTEND Internal Medicine
PROC: 5A1955Z Respiratory Ventilation, Greater than 96 Consecutive Hours (ICD-10-PCS; principal; 2017-09-13)
DX: A41.9 Sepsis, unspecified organism (principal); J96.01 Acute respiratory failure with hypoxia; I48.91 Unspecified atrial fibrillation; J44.0 Chronic obstructive pulmonary disease with (acute) lower respiratory infection; J18.9 Pneumonia, unspecified organism; I50.33 Acute on chronic diastolic (congestive) heart failure; J44.1 Chronic obstructive pulmonary disease with (acute) exacerbation; I42.9 Cardiomyopathy, unspecified; E87.1 Hypo-osmolality and hyponatremia; R64 Cachexia; F17.210 Nicotine dependence, cigarettes, uncomplicated; F10.20 Alcohol dependence, uncomplicated; I11.0 Hypertensive heart disease with heart failure; E87.8 Other disorders of electrolyte and fluid balance, not elsewhere classified; E87.5 Hyperkalemia; I65.23 Occlusion and stenosis of bilateral carotid arteries; I27.20 Pulmonary hypertension, unspecified; R31.9 Hematuria, unspecified
CPT/HCPCS: 31500; 36415; 51702; 71010; 80048; 80053; 81000; 82805; 82962; 83605; 83735; 83880; 84100; 85007; 85025; 85027; 85610; 85730; 87040; 87070; 87077; 87205; 93005; 93306; 93880; 94002; 94003; 94640; 94799; 96365; 96366; 96367; 96368; 96372; 96375